=== PATIENT | male | born 1955 | race Caucasian/White ===

== ENCOUNTER 2021-01-02 14:26 | Inpatient (IN) | payer OTHER ==
--- NOTE | 2021-01-02 15:04 | RAD REPORT ---
EXAM DESCRIPTION: RAD - Chest Single View - 01/02/2021 2:55 pm CLINICAL HISTORY: DYSPNEA Chest pain. COMPARISON: No comparisons FINDINGS: Portable technique limits examination quality. Mild reticular opacities in the medial right lung base raise suspicion for possible developing pneumo levar. The lungs are otherwise grossly clear. The heart is normal in size. Right-sided PICC line has ti p in the SVC.
[2021-01-02 15:08] LABS: Absolute Lymphocytes (CBC) 0.9 K/uL (0.7-4.9); Basophils % 0.3 % (0-1.3); Lymphocytes % 3.7 % (15.3-44.8); MPV 10.6 fL (7.6-11.3); RBC Red Blood Cell Count 3.91 M/uL (4.33-5.43)
[2021-01-02 15:15] LABS: Protime INR 1.13
[2021-01-02] MEDS ORDERED: NA CHLORIDE 0.9% 2,000 ML ONE (15:26)
[2021-01-02] MEDS ORDERED: CEFEPIME/SWI 1gm 10 ML ONE (15:27)
[2021-01-02 15:38] LABS: Albumin 2.4 g/dL (3.4-5.0); Bilirubin Direct 0.1 mg/dL (0-0.2); Bilirubin Total 0.4 mg/dL (0.2-1.0); Potassium 3.9 mmol/L (3.5-5.1); Protein, Total 7.5 g/dL (6.4-8.2); Troponin (Emerg Dept Use Only) 0.04 ng/mL (0.0-0.045)
[2021-01-02 15:41] LABS: Blood Morphology Comment NOT SEEN (NOT SEEN); Platelet Estimate ADEQ
[2021-01-02] MEDS ORDERED: VANCOMYCIN/NS 1 gm 1 GM/250 ML BAG IVPB ONE (16:00)
[2021-01-02] MEDS ORDERED: NACHLORIDE 0.45% 1,000 ML IV ONE ×2 (16:00→17:24)
[2021-01-02 17:41] LABS: Urine Amorphous Sediment 3+ /HPF (NONE SEEN); Urine Bacteria <20 /HPF (NONE SEEN); Urine Mucus 1+ /HPF (NONE SEEN); Urine RBC <5 /HPF (NONE SEEN)
[2021-01-02 17:42] LABS: Urine Blood NEGATIVE (NEG); Urine Glucose NEGATIVE (NEG); Urine Protein NEGATIVE (NEG)
--- NOTE | 2021-01-02 18:21 | ER ---
Nurse's Notes [facility] Name: Drake Friend Age: 65 yrs Sex: Male : 1955 Arrival Date: 01/02/2021 Time: 14:33 Bed 2 Private MD: Diagnosis: Severe sepsis without septic shock;Pneumonia due to other specified infectious organisms Presentation: 01/02 14:40 Chief complaint: EMS states: were toned out for possible aspiration pneumonia, pt has iw been at [facility] for 5 days for IV abx ertapenem for pneumonia. pt has hx of CVA with aphasia and dysphagia, NH was attempting to feed pt and believes he aspirated. 14:46 Coronavirus screen: difficulty breathing, Client presents with at least one sign or iw symptom that may indicate coronavirus-19. Ebola Screen: Patient negative for fever greater than or equal to 101.5 degrees Fahrenheit, and additional compatible Ebola Virus Disease symptoms Patient denies exposure to infectious person. Patient denies travel to an Ebola-affected area in the 21 days before illness onset. No symptoms or risks identified at this time. Risk Assessment: Do you want to hurt yourself or someone else? Patient reports no desire to harm self or others. 14:46 Acuity: STU 1 iw 14:46 Method Of Arrival: EMS: [facility] iw 14:47 Initial Sepsis Screen: Does the patient meet any 2 criteria? RR > 20 per min. HR > 90 iw bpm. Does the patient have a suspected source of infection? Yes: Productive cough/pneumonia. Onset of symptoms was January 03, 2021. 14:48 Onset of symptoms. iw Triage Assessment: 14:40 Respiratory: Reports shortness of breath Onset: The symptoms/episode began/occurred iw today, the patient has moderate shortness of breath. Historical: - Allergies: 14:38 No Known Allergies; iw - Home Meds: 17:39 carvedilol 12.5 mg oral tab 1 tab every 12 hours [Active]; hydralazine 100 mg Oral tab iw 1 tab 3 times per day [Active]; losartan 100 mg oral tab 1 tab once daily [Active]; Nifedipine ER Oral 60 mg daily [Active]; Plavix 75 mg Oral tab 1 tab once daily [Active]; Remeron 45 mg Oral tab 1 tab once daily [Active]; Risperdal 2 mg Oral tab 1 tab 2 times per day [Active]; terazosin 2 mg oral cap 1 cap once daily [Active]; thiamine HCl (vitamin B1) 100 mg Oral tab daily [Active]; Vitamin B-12 1,000 mcg oral tab daily [Active]; zinc sulfate 220 (50) mg Oral cap daily [Active]; senna 8.6 mg oral tab 2 tabs once daily [Active]; cholecalciferol (vitamin D3) 5,000 unit oral cap daily [Active]; folic acid 1 mg Oral tab 1 tab once daily [Active]; - PMHx: 17:39 CVA; Pneumonia; iw - Immunization history:: Adult Immunizations up to date. - Social history:: Smoking status: Patient denies any tobacco usage or history of. Screenin:39 Abuse screen: Denies threats or abuse. Denies injuries from another. Nutritional iw screening: No deficits noted. Tuberculosis screening: No symptoms or risk factors identified. Fall Risk IV access (20 points). Assessment: 14:50 General: Appears uncomfortable, ill, Behavior is calm. Neuro: Level of Consciousness is iw awake, confused, Oriented to person. Cardiovascular: Rhythm is sinus tachycardia. Respiratory: Breath sounds are coarse bilaterally. GI: Abdomen is flat, non-distended. Derm: Skin is intact, is fragile, Skin is normal. Musculoskeletal: Range of motion: limited in left hip, left knee, right hip and right knee. 17:29 Reassessment: pt appears more alert, pt pulling off NRB mask, placed on 4 L NC, pt iw oriented X 3. 19:05 General: Appears in no apparent distress. comfortable, Behavior is calm, cooperative, jb4 appropriate for age. Pain: Denies pain. Neuro: Level of Consciousness is awake, alert, obeys commands, Oriented to person, place. Cardiovascular: Patient's skin is warm and dry. Respiratory: Airway is patent Respiratory effort is even, unlabored, Respiratory pattern is regular, symmetrical. GI: No signs and/or symptoms were reported involving the gastrointestinal system. : No signs and/or symptoms were reported regarding the genitourinary system. EENT: No signs and/or symptoms were reported regarding the EENT system. Derm: Skin is intact, Skin is pink, warm \T\ dry. Musculoskeletal: Circulation, motion, and sensation intact. 20:00 Reassessment: Patient appears in no apparent distress at this time. No changes from jb4 previously documented assessment. Patient and/or family updated on plan of care and expected duration. Pain level reassessed. PT admitted to ER hold. 22:20 Reassessment: a BMP has been drawn and sent to lab as ordered by Rubio JUNIOR prior to sg transport to room on second floor at this time. Vital Signs: 14:36 BP 66 / 47; Pulse 83; Resp 23 S; Temp 97.3(TE); Pulse Ox 80% on Non-rebreather mask; iw Weight 77.11 kg; 14:47 BP 75 / 61; Pulse 61; Resp 22 S; Pulse Ox 87% on Non-rebreather mask; iw 15:22 BP 71 / 54; Pulse 54; Resp 22; sv 15:58 BP 95 / 60; Pulse 61; Resp 20 S; Pulse Ox 95% on Non-rebreather mask; iw 19:00 BP 103 / 63; Pulse 64; Resp 18; Pulse Ox 91% on R/A; jb4 20:00 BP 102 / 73; Pulse 64; Resp 17; Pulse Ox 90% on R/A; jb4 ED Course: 14:33 Patient arrived in ED. sv 14:34 Osvaldo Mendez PA is PHCP. jr8 14:34 Chucho Ross MD is Attending Physician. jr8 14:46 Triage completed. iw 14:46 Patient placed. iw 14:55 Chest Single View XRAY In Process Unspecified. EDMS 15:07 Melody Davenport, RN is Primary Nurse. iw 15:20 Accessed PICC line. Clean \T\ dry. Good blood return. Flushes easily. iw 18:20 Merrick Mccarthy DO is Hospitalizing Provider. jr8 18:39 Patient has correct armband on for positive identification. Placed in gown. Bed in low mh5 position. Call light in reach. Side rails up X2. Warm blanket given. heater helper on. Pulse ox on. NIBP on. 18:39 EKG done, by ED staff, reviewed by Osvaldo MIX. mh5 18:40 Initial lab(s) drawn, by ED staff, sent to lab. mh5 19:21 Jovani Hanna MD is Hospitalizing Provider. la1 20:10 No provider procedures requiring assistance completed. Patient admitted, IV remains in jb4 place. Administered Medications: 15:17 Drug: Cefepime 1 grams Route: IVPB; Rate: 200 ml/hr; Infused Over: 30 mins; Site: PICC; iw 15:18 Drug: NS 0.9% (30 ml/kg) 30 ml/kg Route: IV; Rate: bolus; Site: PICC; iw 15:40 Drug: vancoMYCIN 1 grams Route: IVPB; Infused Over: 2 hrs; Site: PICC; iw 17:47 Drug: NS 0.45 % 1000 ml Route: IV; Rate: 100 ml/hr; Site: PICC; iw Outcome: 18:20 Decision to Hospitalize by Provider. jr8 20:10 Admitted to ER Hold. [facility]. jb4 20:10 Condition: stable 20:10 Discharge instructions given to patient, Instructed on the need for admit. 22:22 Patient left the ED. ea Signatures: Dispatcher [employer] EDDariana Shane RN RN Jacob Ramos RN RN sg Williams, Irene, RN RN iw Roszak, Josh, PA PA jr8 Rubio Calderon, TRACTOR EXPERT-C TRACTOR EXPERT-Cla1 Steven Merrill RN RN jb4 Martinez, Maria Rosa Ndiaye RN RN ea Corrections: (The following items were deleted from the chart) 15:18 14:36 BP 66 / 47; Pulse 83bpm; Resp 23bpm; Spontaneous; Pulse Ox 80% Non-rebreather iw mask; Temp 97.3F Temporal; iw
--- NOTE | 2021-01-02 18:21 | EDPHYS ---
Physician Documentation [facility] Name: Drake Friend Age: 65 yrs Sex: Male : 1955 Arrival Date: 01/02/2021 Time: 14:33 Bed 2 Private MD: ED Physician Chucho Ross HPI: 01/02 18:03 This 65 yrs old Male presents to ER via EMS with complaints of Breathing jr8 Difficulty. 18:03 The patient has shortness of breath at rest. Onset: The symptoms/episode began/occurred jr8 gradually. Duration: The symptoms are continuous. Associated signs and symptoms: Pertinent positives: altered mental status. Severity of symptoms: At their worst the symptoms were moderate in the emergency department the symptoms are unchanged. It is unknown whether or not the patient has had similar symptoms in the past. The patient has been recently seen by a physician:. Patient per EMS stated that he was recently treated for pneumonia which started approximately 12 days ago. has been on ertapenem via picc line. Has been at [facility] for past 5 days. History of CVA with aphasia with dysphagia on modified diet. Normally A\T\O x1 but stated that within past day has become more altered and having increased shortness of breath. Concerned that he may have aspirated . Historical: - Allergies: 14:38 No Known Allergies; iw - Home Meds: 17:39 carvedilol 12.5 mg oral tab 1 tab every 12 hours [Active]; hydralazine 100 mg Oral tab iw 1 tab 3 times per day [Active]; losartan 100 mg oral tab 1 tab once daily [Active]; Nifedipine ER Oral 60 mg daily [Active]; Plavix 75 mg Oral tab 1 tab once daily [Active]; Remeron 45 mg Oral tab 1 tab once daily [Active]; Risperdal 2 mg Oral tab 1 tab 2 times per day [Active]; terazosin 2 mg oral cap 1 cap once daily [Active]; thiamine HCl (vitamin B1) 100 mg Oral tab daily [Active]; Vitamin B-12 1,000 mcg oral tab daily [Active]; zinc sulfate 220 (50) mg Oral cap daily [Active]; senna 8.6 mg oral tab 2 tabs once daily [Active]; cholecalciferol (vitamin D3) 5,000 unit oral cap daily [Active]; folic acid 1 mg Oral tab 1 tab once daily [Active]; - PMHx: 17:39 CVA; Pneumonia; iw - Immunization history:: Adult Immunizations up to date. - Social history:: Smoking status: Patient denies any tobacco usage or history of. ROS: 18:03 Unable to obtain ROS due to altered mental status. jr8 Exam: 18:17 Eyes: Pupils equal round and reactive to light, extra-ocular motions intact. Lids and jr8 lashes normal. Conjunctiva and sclera are non-icteric and not injected. Cornea within normal limits. Periorbital areas with no swelling, redness, or edema. ENT: Nares patent. No nasal discharge, no septal abnormalities noted. Oropharynx with no redness, swelling, or masses, exudates, or evidence of obstruction, uvula midline. Mucous membranes moist. Neck: Trachea midline, no thyromegaly or masses palpated, and no cervical lymphadenopathy. Cardiovascular: Regular rate and rhythm with a normal S1 and S2. No gallops, murmurs, or rubs. Normal PMI, no JVD. No pulse deficits. 18:17 Abdomen/GI: Soft, non-tender, with normal bowel sounds. No distension or tympany. Skin: Warm, dry with normal turgor. Normal color with no rashes, no lesions, and no evidence of cellulitis. MS/ Extremity: Pulses equal, no cyanosis. Contracted on right side from previous CVA 18:17 Respiratory: mild respiratory distress is noted, Respirations: tachypnea, Breath sounds: rales, that are mild, are heard in the left posterior upper lobe. 18:17 Neuro: Orientation: to person, Mentation: slow to respond, unable to follow commands, Memory: unable to test, Cranial nerves: extraocular movements are intact, Speech is slowed, Motor: the patient is contracted, Sensation: no obvious gross deficits, seizure activity, is not displayed by the patient, Abnormal movements: there are no abnormal movements. Vital Signs: 14:36 BP 66 / 47; Pulse 83; Resp 23 S; Temp 97.3(TE); Pulse Ox 80% on Non-rebreather mask; iw Weight 77.11 kg; 14:47 BP 75 / 61; Pulse 61; Resp 22 S; Pulse Ox 87% on Non-rebreather mask; iw 15:22 BP 71 / 54; Pulse 54; Resp 22; sv 15:58 BP 95 / 60; Pulse 61; Resp 20 S; Pulse Ox 95% on Non-rebreather mask; iw 19:00 BP 103 / 63; Pulse 64; Resp 18; Pulse Ox 91% on R/A; jb4 20:00 BP 102 / 73; Pulse 64; Resp 17; Pulse Ox 90% on R/A; jb4 MDM: 14:34 Patient medically screened. [facility] 18:03 Data reviewed: vital signs, nurses notes, lab test result(s), EKG, radiologic studies, [facility] plain films. Data interpreted: Pulse oximetry: on room air is 80 %. Interpretation: hypoxia. Counseling: I had a detailed discussion with the patient and/or guardian regarding: the historical points, exam findings, and any diagnostic results supporting the discharge/admit diagnosis, lab results, radiology results, the need for further work-up and treatment in the hospital. 01/02 14:35 Order name: Basic Metabolic Panel [facility] 01/02 14:35 Order name: Blood Culture Adult (2) [facility] 01/02 14:35 Order name: CBC with Diff [facility] 01/02 14:35 Order name: CPK [facility] 01/02 14:35 Order name: Lactate [facility] 01/02 14:35 Order name: LFT's [facility] 01/02 14:35 Order name: Procalcitonin; Complete Time: 16:19 [facility] 01/02 14:35 Order name: Protime (+inr); Complete Time: 16:19 [facility] 01/02 14:35 Order name: Ptt, Activated; Complete Time: 16:19 [facility] 01/02 14:35 Order name: Troponin (emerg Dept Use Only); Complete Time: 16:19 [facility] 01/02 14:35 Order name: Urine Microscopic Only; Complete Time: 17:46 [facility] 01/02 14:36 Order name: Basic Metabolic Panel; Complete Time: 16:19 [facility] 01/02 14:36 Order name: Blood Culture [facility] 01/02 14:35 Order name: Chest Single View XRAY; Complete Time: 15:24 [facility] 01/02 14:36 Order name: BIPAP [facility] 01/02 14:36 Order name: CBC with Automated Diff; Complete Time: 16:19 [facility] 01/02 14:36 Order name: Creatine Phosphokinase; Complete Time: 16:19 ED[facility] 01/02 14:36 Order name: Lactate; Complete Time: 16:19 ED[facility] 01/02 14:36 Order name: Liver (Hepatic) Function; Complete Time: 16:19 EDMS 01/02 15:29 Order name: Glucose, Ancillary Testing [facility] 01/02 15:40 Order name: Manual Differential; Complete Time: 16:19 ED[facility] 01/02 16:31 Order name: SARS-COV-2 RT PCR; Complete Time: 16:42 EDMS 01/02 17:15 Order name: Urine Dipstick--Ancillary (enter results); Complete Time: 17:46 bd 01/02 22:16 Order name: BMP la1 01/02 14:35 Order name: Accucheck; Complete Time: 15:24 8 01/02 14:35 Order name: Cardiac monitoring; Complete Time: 15:24 8 01/02 14:35 Order name: EKG - Nurse/Tech; Complete Time: 18:38 [facility] 01/02 14:35 Order name: IV Saline Lock - Large Bore; Complete Time: 15:24 8 01/02 14:35 Order name: Labs collected and sent; Complete Time: 15:24 8 01/02 14:35 Order name: O2 Per Protocol; Complete Time: 15:24 8 01/02 14:35 Order name: O2 Sat Monitoring; Complete Time: 19:11 8 01/02 14:35 Order name: Urine Dipstick-Ancillary (obtain specimen); Complete Time: 19:11 Administered Medications: 15:17 Drug: Cefepime 1 grams Route: IVPB; Rate: 200 ml/hr; Infused Over: 30 mins; Site: PICC; iw 15:18 Drug: NS 0.9% (30 ml/kg) 30 ml/kg Route: IV; Rate: bolus; Site: PICC; iw 15:40 Drug: vancoMYCIN 1 grams Route: IVPB; Infused Over: 2 hrs; Site: PICC; iw 17:47 Drug: NS 0.45 % 1000 ml Route: IV; Rate: 100 ml/hr; Site: PICC; iw Disposition: 01/02/21 18:20 Hospitalization ordered by Jovani Hanna for Inpatient Admission. Preliminary diagnosis are Severe sepsis without septic shock, Pneumonia due to other specified infectious organisms. - Bed requested for Telemetry/MedSurg (Inpatient). - Status is Inpatient Admission. ea - Condition is Fair. - Problem is new. - Symptoms have improved. Addendum: 01/06/2021 19:28 Co-signature as Attending Physician, Chucho Ross MD I agree with the assessment and t w4 plan of care. Signatures: Dispatcher [employer] EDWV Candy Roberts, RN Kristin Mullen, RN Melody Henderson RN Osvaldo Casiano PA PA jr8 Attema, Rubio, TEXT TRANSCRIBER-C TEXT TRANSCRIBER-Cla1 Rosa Neri RN RN ea Wadley, Terrence, MD MD tw4 Corrections: (The following items were deleted from the chart) 01/02 15:10 14:39 CORONAVIRUS+.PERIZ ordered. [facility] 19:07 18:20 Hospitalization Ordered by Merrick Mccarthy DO for Inpatient Admission. Preliminary diagnosis is Severe sepsis without septic shock; Pneumonia due to other specified infectious organisms. Bed requested for Intensive Care Unit. Status is Inpatient Admission. Condition is Fair. Problem is new. Symptoms have improved. jr8 19:21 19:07 01/02/2021 18:20 Hospitalization Ordered by Merrick Mccarthy DO for Inpatient la1 Admission. Preliminary diagnosis is Severe sepsis without septic shock; Pneumonia due to other specified infectious organisms. Bed requested for [facility] ER HOLD. Status is Inpatient Admission. Condition is Fair. Problem is new. Symptoms have improved. 21:31 19:21 01/02/2021 18:20 Hospitalization Ordered by Jovani Hanna MD for Inpatient mw Admission. Preliminary diagnosis is Severe sepsis without septic shock; Pneumonia due to other specified infectious organisms. Bed requested for [facility] ER HOLD. Status is Inpatient Admission. Condition is Fair. Problem is new. Symptoms have improved. la1 22:22 21:31 01/02/2021 18:20 Hospitalization Ordered by Jovani Hanna MD for Inpatient ea Admission. Preliminary diagnosis is Severe sepsis without septic shock; Pneumonia due to other specified infectious organisms. Bed requested for Telemetry/MedSurg (Inpatient). Status is Inpatient Admission. Condition is Fair. Problem is new. Symptoms have improved. mw
[2021-01-02] MEDS ORDERED: NACHLORIDE 0.45% 1,000 ML IV SCH (21:12)
[2021-01-02] MEDS ORDERED: ONDANSETRON 4 MG/2 ML VIAL IV PRN (21:12)
[2021-01-02] MEDS: HEPARIN 5000 UNIT/ML 1 ML VIAL SQ SCH (21:12)
[2021-01-02] MEDS ORDERED: HEPARIN 5000 UNIT/ML 1 ML VIAL ONE (21:42)
[2021-01-02] MEDS ORDERED: VANCOMYCIN 500 MG in NA CHLORIDE 0.9% 100 ML IVPB ONE (21:45)
--- NOTE | 2021-01-02 22:20 | P.HP ---
Certification for Inpatient Patient admitted to: Inpatient With expected LOS: >2 Midnights Patient will require the following post-hospital care: None Practitioner: I am a practitioner with admitting privileges, knowledge of patient current condition, hospital course, and medical plan of care. Services: Services provided to patient in accordance with Admission requirements found in Title 42 Section 412.3 of the Code of Federal Regulations <Rubio Calderon - Last Filed: 01/02/21 22:09> Patient History Date of Service: 01/02/21 Reason for admission: Severe sepsis History of Present Illness: 65-year-old male with history of CVA, dysphagia, CAD, hypertension presents emergency department for shortness of breath. Patient currently staying at [facility] and is on her ertapenum for pneumonia. senior care staff was feeding patient today when he appeared to aspirate on some of the food and became short of breath. Patient was evaluated in the emergency department labs soon for white blood cell count 23.5 sodium 160 to chloride 129, creatinine 3.77 GFR 16 pro calcitonin 0.3 lactic acid 1.4. Chest x-ray remarkable for mild reticular opacities medial right lung base suspicious for developing pneumonia. Family reports patient had stroke approximately 2 months prior and had been doing well up until approximately 1 week ago when he began having more slurred speech and was diagnosed with pneumonia that required IV antibiotics, since then patient has been declining while in [facility]. Patient with severe sepsis at this time will trend lactate, admit for further evaluation and management. Discussed with sister and other family, wish for full code at this time. Patient is awake, lethargic speech extremely slurred appears to be oriented times 1-2. - Past Medical/Surgical History -: CVA with resulting dysphagia -: Hypertension Past Surgical History: Unable to obtain Psychosocial/ Personal History: Patient currently resides in [facility], prior lived with sister. - Family History Family History: Reviewed- Non-Contributory - Social History Smoking Status: Unknown if ever smoked Place of Residence: [facility] <Rubio Calderon - Last Filed: 01/02/21 22:09> Date of Service: 01/14/21 <Jovani Hanna - Last Filed: 01/14/21 14:54> Allergies No Known Allergies Allergy (Verified 01/03/21 00:05) Review of Systems is unable to be obtained <Rubio Calderon - Last Filed: 01/02/21 22:09> Physical Examination - Physical Exam General: Alert, Oriented x1, Other (Lethargic) HEENT: Other (Mucous membranes dry) Neck: Supple Respiratory: Diminished (Bilaterally), Crackles/rales (Right lower lobe) Cardiovascular: Regular rate/rhythm, Normal S1 S2, No murmurs Capillary refill: <2 Seconds Gastrointestinal: Normal bowel sounds, No tenderness, No masses, No rebound Musculoskeletal: No contractures, No erythema, No tenderness Integumentary: No tenderness/swelling, No erythema, No warmth Neurological: Abnormal speech (Speech slurred), Abnormal tone - Studies Laboratory Data (last 24 hrs) 01/02/21 14:56: PT 13.0 H, INR 1.13, APTT 30.0 01/02/21 14:56: WBC 23.50 H*, Hgb 11.3 L, Hct 35.0 L, Plt Count 336 01/02/21 14:56: Sodium 162 H*, Potassium 3.9, BUN 97 H, Creatinine 3.77 H, Glucose 181 H, Total Bilirubin 0.4, AST 35, ALT 17, Alkaline Phosphatase 79 <Rubio Calderon - Last Filed: 01/02/21 22:09> Assessment and Plan - Plan Assessment Severe sepsis secondary to suspected aspiration pneumonia-on irtapenum at [facility] Acute renal failure Hypernatremia, hyperchloremia Dysphagia secondary to previous stroke Hypertension Plan Severe sepsis secondary to suspected aspiration pneumonia-on irtapenum at [facility]: Blood cultures obtained in the ER, trend lactate levels, patient was hypotensive in the ER but blood pressure improved after sepsis fluid bolus, patient not requiring vasopressor therapy at this time. Will need to follow blood cultures, continue broad-spectrum antibiotics. Patient previously on her irtapenum for pneumonia at al[facility], Infectious Disease consult in place. Continue with meropenem, vancomycin at this time. DVT prophylaxis Lovenox 40 mg subcutaneous once daily. Acute renal failure: Nephrology consult in place, patient likely dehydrated, renal ultrasound in the morning, elevated CPK level. Will obtain uric acid. Hypernatremia, hyperchloremia: Patient received 30 cc/kg normal saline in the emergency department, pending repeat chemistry at this time. May need to adjust maintenance fluids according to lab. Nephrology consult in place. Dysphagia secondary to previous stroke: Speech therapy consult in place, patient will need swallow study, may need PEG tube. NPO at this time. Hypertension: Continue p.r.n. blood pressure medications at this time, nothing by mouth. Discharge Plan: [facility] Plan to discharge in: Greater than 2 days - Advance Directives Does patient have a Living Will: No Does patient have a Durable POA for Healthcare: No - Code Status/Comfort Care Code Status Assessed: Yes (Full code) Critical Care: No Time Spent Managing Pts Care (In Minutes): 55 <Rubio Calderon - Last Filed: 01/02/21 22:09> - Plan Plan of care reviewed and agree as noted above by Rubio Calderon. Please see my note on 01/03 for further information. <Jovani Hanna - Last Filed: 01/14/21 14:54>
[2021-01-02] MEDS ORDERED: VANCOMYCIN 1 GM/VIAL ONE (22:36)
[2021-01-02 23:10] VITALS: BMI 21.4
[2021-01-02] MEDS ORDERED: NA CHLORIDE 0.9% 100 ML ONE (23:22)
[2021-01-03] MEDS ORDERED: Meropenem 1000 MG/VIAL IV SCH (01:00)
[2021-01-03] MEDS ORDERED: Meropenem 1 GM/100 ML BAG ONE (01:00)
[2021-01-03] MEDS ORDERED: Meropenem 1,000 MG in NA CHLORIDE 0.9% 100 ML IV SCH ×4 (01:00)
[2021-01-03] MEDS ORDERED: NACHLORIDE 0.45% 1,000 ML IV SCH (01:50)
--- NOTE | 2021-01-03 01:53 | P.INFCA ---
Sepsis Focused Assessment - Focused Assessment Complete? Sepsis Focused Assessment Completed?: Yes - Sepsis Screen Result Severe Sepsis: Positive Septic Shock: Negative - Evaluation Current stage of sepsis: Severe sepsis - Vital Signs Reviewed: Yes Temperature: 97.8 F Heart rate: 67 Blood Pressure: 109/69 Respiratory Rate: 16 O2 Sat by Pulse Oximetry: 95 - Examination Date exam was performed: 01/03/21 Time exam was performed: 01:52 Heart: Regular rate/rhythm Lungs: Diminished air movement Peripheral pulses: 2+ Slightly diminished Peripheral pulse location: Radial Capillary refill: <2 Seconds Skin examination: Normal turgor
[2021-01-03] MEDS ORDERED: D5W 1,000 ML IV SCH (02:00)
[2021-01-03 05:50] LABS: Absolute Lymphocytes (CBC) 0.5 K/uL (0.7-4.9); Hematocrit 31.2 % (39.6-49.0); Lymphocytes % 2.3 % (15.3-44.8); MPV 10.5 fL (7.6-11.3); RBC Red Blood Cell Count 3.46 M/uL (4.33-5.43)
[2021-01-03 06:04] LABS: Albumin 2.1 g/dL (3.4-5.0); Bilirubin Total 0.3 mg/dL (0.2-1.0); Magnesium 2.5 mg/dL (1.8-2.4); Potassium 3.9 mmol/L (3.5-5.1); Protein, Total 6.8 g/dL (6.4-8.2); Uric Acid 11.7 mg/dL (3.5-7.2)
[2021-01-03 06:29] LABS: Blood Morphology Comment NOT SEEN (NOT SEEN); Platelet Estimate ADEQ; White Blood Cell Scan OK (OK)
--- NOTE | 2021-01-03 08:12 | RAD REPORT ---
EXAM DESCRIPTION: CT - Head Brain Wo Cont - 01/03/2021 7:50 am CLINICAL HISTORY: hx cva, worsening dyshagia COMPARISON: Chest Single View dated 01/02/2021 TECHNIQUE: Axial 5 mm thick images of the head were obtained without IV contrast. All CT scans are performed using dose optimization technique as appropriate and may include automated exposure control or mA/KV adjustment according to patient size. FINDINGS: No intracranial hemorrhage, mass, edema or shift of mid-line structures. Approximately 4 c entimeter sized area of the superior left cerebellum shows diminished attenuation suspicious for suba cute infarction. No significant mass effect in this region. A large area of diminished attenuation in the anteromedial left frontal lobe is likely old CVA. Moderate atrophy changes are present greater t sainz typically seen at this age. Ventricles are prominent and may be out of proportion for the amount of volume loss. Patient has advanced for age diminished attenuation throughout the cerebral hemispher es worse in the frontal lobes. This extends into the basal ganglia and thalamus tissues, more so on t he right. Brainstem diminished attenuation present as well. No abnormal extra-axial fluid collections . Arterial and physiologic calcifications are present. Mastoid air cells and visualized portions of the paranasal sinuses are clear. No acute bony findings. IMPRESSION: No intracranial hemorrhage is present. No mass lesion, mass effect or midline shift. Moderately large subacute infarction involving the superior portion left cerebellum. Left frontal and right cerebellum diminished attenuation probably old infarction sites. Advanced for age atrophy and chronic ischemic change. Chronic ischemic change can mask other sites o f nonhemorrhagic CVA. Ventricles appear slightly out of proportion for the amount of volume loss. Correlation can be made w ith any symptoms of normal pressure hydrocephalus.
[2021-01-03] MEDS: HEPARIN 5000 UNIT/ML 1 ML VIAL SQ SCH ×2 (08:29→21:53)
[2021-01-03] MEDS ORDERED: PNEUMOCOCCAL VACCINE 0.5 ML IMVAC ONE (09:00)
[2021-01-03] MEDS ORDERED: INFLUENZA VACCINE (for 3y+) 0.5 ML DOSE IMVAC ONE (09:00)
[2021-01-03] MEDS ORDERED: KCL 20 MEQ/100 mL IVPB 20 MEQ/100 ML BAG IV SCH (09:00)
--- NOTE | 2021-01-03 09:52 | RAD REPORT ---
EXAM DESCRIPTION: US - Renal Ultrasound-Complete - 01/03/2021 8:55 am CLINICAL HISTORY: arf COMPARISON: No comparisonsNone. FINDINGS: The right kidney measures approximately 9 x 4 x 5 cm. The left kidney measures approximat bety 7 x 4 x 5 cm. Renal cortical thickness and echogenicity are normal. No hydronephrosis or suspicio us renal mass. Bladder cannot be adequately visualized. Exam was suboptimal. Patient had limited ability to cooperate with the examination. IMPRESSION: No hydronephrosis or suspicious renal mass. Urinary bladder was not visualized adequately.
[2021-01-03] MEDS: Meropenem 500 MG in NA CHLORIDE 0.9% 100 ML IV SCH ×2 (10:17→21:53)
--- NOTE | 2021-01-03 13:42 | P.CNS ---
Date of Consult: 01/03/21 Reason for Consult: elevated creatinine and sodium Requesting Physician: Rubio Calderon Chief Complaint: Severe sepsis History of Present Illness: 65-year-old male with history of CVA, dysphagia, CAD, HTN, Nurising home resident -admitted for SOB -Noted on imaging with right upper lobe pneumonia -workup shows elevated sodium at 162 with cr up to 3.77 -started on D5W with kcl and creatinine still worsening after intial improvement to 3.5 -+ low BP with systolic down to 60s on adm -No documented contrast exposure -patient is obtunded and unable to give more hx Allergies No Known Allergies Allergy (Verified 01/03/21 00:05) Home medications list reviewed: Yes - Past Medical/Surgical History Diabetic: No -: CVA with resulting dysphagia -: Hypertension Psychosocial/ Personal History: Patient currently resides in prison, prior lived with sister. - Social History Alcohol use: No CD- Drugs: No Caffeine use: No Place of Residence: [facility] Review of Systems is unable to be obtained (cva) Physical Examination Temp Pulse Resp BP Pulse Ox 98.1 F 52 18 140/72 98 01/03/21 12:00 01/03/21 12:00 01/03/21 12:00 01/03/21 12:00 01/03/21 12:00 General: Other (obtunded , on NC 02 , ) HEENT: Atraumatic, Normocephalic Neck: Supple, 2+ carotid pulse no bruit, JVD not distended Respiratory: Diminished, Inspiratory wheezes, Rhonchi/gurgles Cardiovascular: Normal pulses, Regular rate/rhythm, Normal S1 S2 Capillary refill: <2 Seconds Gastrointestinal: Normal bowel sounds, Soft and benign, Non-distended Musculoskeletal: No clubbing, No swelling Integumentary: No rashes, No breakdown Neurological: Dementia Laboratory Data (last 24 hrs) 01/02/21 14:56: PT 13.0 H, INR 1.13, APTT 30.0 01/02/21 14:56: WBC 23.50 H*, Hgb 11.3 L, Hct 35.0 L, Plt Count 336 01/02/21 14:56: Sodium 162 H*, Potassium 3.9, BUN 97 H, Creatinine 3.77 H, Glucose 181 H, Total Bilirubin 0.4, AST 35, ALT 17, Alkaline Phosphatase 79 Conclusions/Impression: ERASMO- likely due to pre-renal with component of Hypotension induced ATN Hypernatremia CVA with Dysphagia HTN Met Encephalopathy Sepsis with RUL Pneumonia PLAN - obtain urine studies for fena -obtain renal sono -consider place hackett for 1/o -continue D5W with kcl -increase rate to 125 -will dose DDAVP -serum sodium trending down to 157, expected meds to target decrease of > 12 meq over next 24 hrs -free water deficit of > 4 L noted -consider place NGT and start free water -renally dose all meds - avoid nsaids
[2021-01-03] MEDS: DESMOPRESSIN 4 MCG/ML AMP SQ SCH (14:18)
[2021-01-03] MEDS: D5W 1,000 ML IV SCH ×2 (14:18→21:48)
[2021-01-03 15:12] LABS: Urine Appearance CLOUDY; Urine Bilirubin NEGATIVE (NEG); Urine Blood TRACE (NEG); Urine Color YELLOW; Urine Glucose NEGATIVE (NEG); Urine Protein TRACE (NEG); Urine Specific Gravity 1.015 (1.005-1.030); Urine Urobilinogen 0.2 mg/dL (0.2-1.0)
[2021-01-03 15:24] LABS: Urine Microscopic Reflex ORDER UMIC
[2021-01-03 15:43] LABS: Urine Amorphous Sediment 2+ /HPF (NONE SEEN); Urine Bacteria <20 /HPF (NONE SEEN); Urine RBC <5 /HPF (NONE SEEN)
--- NOTE | 2021-01-03 16:04 | P.PN ---
Subjective Date of Service: 01/03/21 Chief Complaint: Severe sepsis Subjective: No new changes (no significant events since admission overnight.) Review of Systems 10-point ROS is otherwise unremarkable Physical Examination - Vital Signs Temperature: 98.1 F Blood Pressure: 140/72 Pulse: 52 Respirations: 18 Pulse Ox (%): 98 - Studies Microbiology Data (last 24 hrs): 01/02/21 15:05 Blood - Blood Anaerobic Blood Culture - Final Assessment & Plan Physician Review Additional Text: Physical Exam Gen: Alert, Oriented x1, lethargic, slurring words, difficult to understand HEENT: dry mucous membranes Pulm: diminished bilaterally, crackles at RLL CV: Regular rate/rhythm, Normal S1 S2, No murmurs Abd: Normal bowel sounds, No tenderness, No masses, No rebound Ext: No contractures, No erythema, No tenderness Neurological: slurred speech, difficult to obtain accurate neuro exam at this time Problem List Severe sepsis secondary to suspected aspiration pneumonia-on irtapenum at senior living Acute renal failure Hypernatremia, hyperchloremia Dysphagia secondary to previous stroke Hypertension Severe sepsis secondary to suspected aspiration pneumonia-on ertapenum at senior living: Blood cultures obtained in the ER BP improved after sepsis bolus, pt with significant free water defecit contine meropenem & vanc for now, ID consulted. was on ertapenem at senior living for pneumonia oxygen as needed Acute renal failure: Hypernatremia, hyperchloremia: Nephrology consulted, patient likely dehydrated, renal ultrasound in the morning, elevated CPK level Dysphagia secondary to previous stroke: Speech therapy consult in place, patient will need swallow study, may need PEG tube. NPO at this time. will place dobhoff for meds, feeds if needed CT head shows subacute infarct, difficult to obtain accurate history - spoke with BRANDIE lan - stated has had 7 or so strokes in the past few months reports 1st one was ~2 months ago, and last one was ~2-3 weeks ago. With significant weakness - had to be lifted from car to disability office. Stated he had MRI at [facility], and then our phones stopped working an unable to get a hold of her again. will attempt to obtain medical records from [place] neurology consulted Hypertension: Continue p.r.n. blood pressure medications at this time, nothing by mouth. Dispo: back to senior care once improved Time Spent Managing Pts Care (In Minutes): 35
[2021-01-04] MEDS: D5W 1,000 ML IV SCH ×4 (01:32→20:06)
[2021-01-04 05:53] LABS: Absolute Lymphocytes (CBC) 0.7 K/uL (0.7-4.9); Basophils % 0.1 % (0-1.3); MPV 10.9 fL (7.6-11.3)
[2021-01-04 06:01] LABS: Bilirubin Total 0.2 mg/dL (0.2-1.0); Magnesium 2.5 mg/dL (1.8-2.4); Phosphorus 3.3 mg/dL (2.5-4.9); Potassium 3.6 mmol/L (3.5-5.1); Protein, Total 6.2 g/dL (6.4-8.2)
[2021-01-04] MEDS: VANCOMYCIN/NS 1 gm 1 GM/250 ML BAG IVPB SCH (06:26)
[2021-01-04 06:50] LABS: Lymphocytes % 3.3 % (15.3-44.8); RBC Red Blood Cell Count 3.03 M/uL (4.33-5.43)
--- NOTE | 2021-01-04 07:14 | RAD REPORT ---
EXAM DESCRIPTION: RAD - Chest Single View - 01/03/2021 10:36 pm CLINICAL HISTORY: Device placement Dobhoff tube placement IMPRESSION: The tip of a Dobhoff tube lies within the gastric fundus
[2021-01-04] MEDS ORDERED: KCL 20 MEQ/100 mL IVPB 20 MEQ/100 ML BAG IV SCH (07:30)
[2021-01-04 07:57] LABS: Blood Morphology Comment NOT SEEN (NOT SEEN); Platelet Estimate ADEQ; White Blood Cell Scan OK (OK)
[2021-01-04] MEDS: DESMOPRESSIN 4 MCG/ML AMP SQ SCH (08:06)
[2021-01-04] MEDS: FOLIC ACID 1 MG TABLET PO SCH (08:06)
[2021-01-04] MEDS: CLOPIDOGREL 75 MG TABLET PO SCH (08:07)
[2021-01-04] MEDS: THIAMINE HCL 100 MG TABLET PO SCH (08:07)
[2021-01-04] MEDS: Meropenem 500 MG in NA CHLORIDE 0.9% 100 ML IV SCH ×2 (08:07→21:11)
[2021-01-04] MEDS: HEPARIN 5000 UNIT/ML 1 ML VIAL SQ SCH ×2 (08:07→21:10)
[2021-01-04] MEDS: SENOSIDES 8.6 MG TAB PO SCH (08:07)
--- NOTE | 2021-01-04 16:33 | P.PN ---
Subjective Date of Service: 01/04/21 Chief Complaint: Severe sepsis Subjective: No new changes, Improving (more awake/alert, slurred speech, difficult to understand, without complaints this morning) Review of Systems 10-point ROS is otherwise unremarkable Physical Examination - Vital Signs Temperature: 98.0 F Blood Pressure: 184/95 Pulse: 67 Respirations: 20 Pulse Ox (%): 95 - Studies Microbiology Data (last 24 hrs): 01/02/21 15:05 Blood - Blood Anaerobic Blood Culture - Final Assessment & Plan Physician Review Additional Text: Physical Exam Gen: Alert, Oriented x2, lethargic, slurring words, difficult to understand HEENT: dry mucous membranes Pulm: diminished bilaterally, crackles at RLL CV: Regular rate/rhythm, Normal S1 S2, No murmurs Abd: Normal bowel sounds, No tenderness Ext: no rash/no tenderness Neurological: slurred speech, difficult to obtain accurate neuro exam at this time still Problem List Severe sepsis secondary to suspected aspiration pneumonia-on irtapenum at [facility] Acute renal failure Hypernatremia, hyperchloremia Dysphagia secondary to previous stroke Hypertension Severe sepsis secondary to suspected aspiration pneumonia-on ertapenum at [facility] home: Blood cultures obtained in the ED, gram stain positive, culture no growth so far BP improved after sepsis bolus, pt with significant free water defecit contine meropenem & vanc for now, ID consulted. was on ertapenem at [facility] for pneumonia ID to see patient today oxygen as needed speech therapy consulted - to evaluate patient today as well PT/OT consulted Acute renal failure: Hypernatremia, hyperchloremia: Nephrology consulted, patient likely dehydrated, elevated CPK level, improving free water via dobhoff, on IVF as well Dysphagia secondary to previous stroke: Speech therapy consult in place, patient will need swallow study, may need PEG tube. NPO at this time. dobhoff for meds, feeds if needed CT head shows subacute infarct, difficult to obtain accurate history - spoke with BRANDIE lan - stated has had 7 or so strokes in the past few months reports 1st one was ~2 months ago, and last one was ~2-3 weeks ago. With significant weakness - had to be lifted from car to disability office. Stated he had MRI at [facility] will attempt to obtain medical records from [place] neurology consulted - recommend repeat MRI today as well Hypertension: Continue p.r.n. blood pressure medications at this time, nothing by mouth. Dispo: likely back to half-way once improved, in 48-72hrs Time Spent Managing Pts Care (In Minutes): 35
--- NOTE | 2021-01-04 16:34 | RAD REPORT ---
EXAM DESCRIPTION: MRI - Brain Wo Cont - 01/04/2021 4:04 pm CLINICAL HISTORY: eval stroke, dysphasia COMPARISON: Head Brain Wo Cont dated 01/03/2021 TECHNIQUE: Sagittal T1-weighted images were obtained along with axial PD, heavily T2-weighted and T2 -FLAIR images. Axial DWI and ADC mapping sequences were also obtained along with coronal heavily T2-w eighted images. FINDINGS: No intracranial hemorrhage is present. Diffusion-weighted imaging shows a large area of re stricted diffusion involving the left-side vermis and superior aspect of the left cerebellum. There i s corresponding diminished signal on ADC mapping sequencing. This is the correlate to the CT finding. No other diffusion signal abnormalities. Patient has underlying moderate atrophy with ventricles in proportion. Cerebral white matter chronic ischemic changes are present advanced for age. Ischemic sig nal abnormalities extend into the basal ganglia and thalamus tissues. Old infarction changes are seen in the anterior left frontal lobe and inferior right cerebellum. No significant edema from the cerebellar infarction. No extra-axial fluid collections. Pang-matter/wh ite matter junction is preserved. Signal voids are seen as a normal finding in the major intracranial vessels. No globe or orbital content abnormality. Mastoid air cells and paranasal sinuses are clear. IMPRESSION: Moderate-sized subacute nonhemorrhagic infarction involving the superior left cerebellum and left vermis. Old infarction changes in the anterior left frontal lobe and inferior right cerebellum. Patient has prominent for age atrophy and chronic ischemic change.
--- NOTE | 2021-01-04 16:35 | RAD REPORT ---
EXAM DESCRIPTION: RAD - Abdomen 1 View (KUB) - 01/04/2021 4:18 pm CLINICAL HISTORY: Dobhoff placement verification COMPARISON: No comparisons FINDINGS: Dobhoff feeding tube has been placed. Tip is in the stomach with no abnormal bend or kink of the tubing. Bowel gas pattern is nonspecific. No dilation of the stomach. Moderate stool volume is seen in the co colin. No free air or pneumatosis. No suspicious calcifications. No significant bony findings IMPRESSION: Dobhoff feeding tube has been placed with the tip in the stomach. No abnormal bend or ki nk of the tubing.
--- NOTE | 2021-01-04 18:29 | P.PN ---
Subjective Date of Service: 01/05/21 Chief Complaint: Severe sepsis Subjective: No new changes Physical Examination - Vital Signs Temperature: 98.0 F Blood Pressure: 184/95 Pulse: 67 Respirations: 20 Pulse Ox (%): 95 - Physical Exam General: Alert, Oriented x2 HEENT: Atraumatic, Normocephalic Neck: Supple Respiratory: Clear to auscultation bilaterally Cardiovascular: Normal pulses, Regular rate/rhythm Gastrointestinal: Soft and benign Neurological: Normal speech, Normal strength at 5/5 x4 extr - Studies Microbiology Data (last 24 hrs): 01/02/21 15:05 Blood - Blood Anaerobic Blood Culture - Final Assessment And Plan - Plan ERASMO- likely due to pre-renal with component of Hypotension induced ATN Hypernatremia CVA with Dysphagia HTN Met Encephalopathy Sepsis with RUL Pneumonia Plan: His sodium is better today at 152. he has had a stable creatinine so far. we will continue free water administration and dose meds for eGFR. we will continue to avoid nephrotoxins.
[2021-01-04] MEDS ORDERED: HOME MED 1 EA UNK (Risperidone [Risperdal] 2 MG Tablet) PO SCH (21:00)
[2021-01-04] MEDS: HYDRALAZINE HCL 25 MG TABLET PO SCH (21:10)
[2021-01-04] MEDS: MIRTAZAPINE 15 MG TAB PO SCH (21:11)
[2021-01-04] MEDS: RISPERIDONE 1 MG TABLET PO SCH (21:18)
[2021-01-04] MEDS: ACETAMINOPHEN 325 MG TABLET FT PRN (21:18)
[2021-01-05] MEDS ORDERED: PANTOPRAZOLE 40 MG INJ IVP ONE (02:16)
[2021-01-05] MEDS: SODIUM CHLORIDE 0.9% 10ML INJ IV PRN (02:28)
[2021-01-05] MEDS: PANTOPRAZOLE INJ 80 MG in NA CHLORIDE 0.9% 250 ML IV SCH ×3 (02:38→22:00)
[2021-01-05] MEDS ORDERED: NA CHLORIDE 0.9% 250 ML ONE (02:41)
[2021-01-05 04:57] LABS: Absolute Lymphocytes (CBC) 1.1 K/uL (0.7-4.9); Basophils % 0.2 % (0-1.3); Hematocrit 26.4 % (39.6-49.0); Lymphocytes % 6.7 % (15.3-44.8); MPV 10.3 fL (7.6-11.3); RBC Red Blood Cell Count 3.02 M/uL (4.33-5.43)
[2021-01-05 05:11] LABS: Bilirubin Total 0.4 mg/dL (0.2-1.0); Magnesium 2.5 mg/dL (1.8-2.4); Potassium 3.8 mmol/L (3.5-5.1); Protein, Total 6.1 g/dL (6.4-8.2)
[2021-01-05] MEDS: D5W 1,000 ML IV SCH ×3 (06:00→21:48)
[2021-01-05] MEDS ORDERED: KCL 20 MEQ/100 mL IVPB 20 MEQ/100 ML BAG IV SCH (07:00)
[2021-01-05] MEDS: CLOPIDOGREL 75 MG TABLET PO SCH (09:43)
[2021-01-05] MEDS: FOLIC ACID 1 MG TABLET PO SCH (09:43)
[2021-01-05] MEDS: RISPERIDONE 1 MG TABLET PO SCH ×2 (09:43→21:30)
[2021-01-05] MEDS: SENOSIDES 8.6 MG TAB PO SCH (09:43)
[2021-01-05] MEDS: HYDRALAZINE HCL 25 MG TABLET PO SCH ×3 (09:43→21:30)
[2021-01-05] MEDS: HEPARIN 5000 UNIT/ML 1 ML VIAL SQ SCH ×2 (09:44→21:32)
[2021-01-05] MEDS: DESMOPRESSIN 4 MCG/ML AMP SQ SCH (09:44)
[2021-01-05] MEDS: THIAMINE HCL 100 MG TABLET PO SCH (09:44)
[2021-01-05] MEDS: Meropenem 500 MG in NA CHLORIDE 0.9% 100 ML IV SCH ×2 (09:45→20:49)
--- NOTE | 2021-01-05 15:39 | P.PN ---
Subjective Date of Service: 01/05/21 Chief Complaint: Severe sepsis Subjective: Improving Physical Examination - Vital Signs Temperature: 98.0 F Blood Pressure: 184/95 Pulse: 67 Respirations: 20 Pulse Ox (%): 95 - Physical Exam General: Alert, Oriented x2 HEENT: Atraumatic, Normocephalic, Other (ng tube insitu.) Neck: Supple Respiratory: Clear to auscultation bilaterally Cardiovascular: Regular rate/rhythm, Normal S1 S2 Gastrointestinal: Soft and benign Neurological: Normal speech, Normal strength at 5/5 x4 extr, Cranial nerves 3-12 intact - Studies Microbiology Data (last 24 hrs): 01/02/21 15:05 Blood - Blood Aerobic Blood Culture - Final 01/02/21 15:05 Blood - Blood Blood Culture Gram Stain - Final 01/02/21 15:05 Blood - Blood Anaerobic Blood Culture - Final Assessment And Plan - Plan ERASMO- likely due to pre-renal with component of Hypotension induced ATN Hypernatremia CVA with Dysphagia HTN Met Encephalopathy Sepsis with RUL Pneumonia Plan: His sodium is better today at 148. His creatinine is better today at 2.85. we will continue free water administration and dose meds for eGFR. we will continue to avoid nephrotoxins. Physician Review Additional Text: Physical Exam Gen: Alert, Oriented x2, lethargic, slurring words, difficult to understand HEENT: dry mucous membranes Pulm: diminished bilaterally, crackles at RLL CV: Regular rate/rhythm, Normal S1 S2, No murmurs Abd: Normal bowel sounds, No tenderness Ext: no rash/no tenderness Neurological: slurred speech, difficult to obtain accurate neuro exam at this time still Problem List Severe sepsis secondary to suspected aspiration pneumonia-on irtapenum at residential Acute renal failure Hypernatremia, hyperchloremia Dysphagia secondary to previous stroke Hypertension Severe sepsis secondary to suspected aspiration pneumonia-on ertapenum at residential: Blood cultures obtained in the ED, gram stain positive, culture no growth so far BP improved after sepsis bolus, pt with significant free water defecit contine meropenem & vanc for now, ID consulted. was on ertapenem at residential for pneumonia ID to see patient today oxygen as needed speech therapy consulted - to evaluate patient today as well PT/OT consulted Acute renal failure: Hypernatremia, hyperchloremia: Nephrology consulted, patient likely dehydrated, elevated CPK level, improving free water via dobhoff, on IVF as well Dysphagia secondary to previous stroke: Speech therapy consult in place, patient will need swallow study, may need PEG tube. NPO at this time. dobhoff for meds, feeds if needed CT head shows subacute infarct, difficult to obtain accurate history - spoke with BRANDIE lan - stated has had 7 or so strokes in the past few months reports 1st one was ~2 months ago, and last one was ~2-3 weeks ago. With significant weakness - had to be lifted from car to disability office. Stated he had MRI at [facility] will attempt to obtain medical records from [place] neurology consulted - recommend repeat MRI today as well Hypertension: Continue p.r.n. blood pressure medications at this time, nothing by mouth. Dispo: likely back to longterm once improved, in 48-72hrs
[2021-01-05] MEDS: VANCOMYCIN/NS 1 gm 1 GM/250 ML BAG IVPB SCH (18:05)
[2021-01-05 19:24] LABS: Absolute Lymphocytes (CBC) 1.1 K/uL (0.7-4.9); Basophils % 0.2 % (0-1.3); Hematocrit 25.2 % (39.6-49.0); Lymphocytes % 7.1 % (15.3-44.8); RBC Red Blood Cell Count 2.89 M/uL (4.33-5.43)
--- NOTE | 2021-01-05 19:36 | P.PN ---
Subjective Date of Service: 01/05/21 Chief Complaint: Severe sepsis Subjective: Other (improving, feeling better, without complaints. overnight noted to have some coffee ground via NGT, started on protonix drip) Review of Systems 10-point ROS is otherwise unremarkable Physical Examination - Vital Signs Temperature: 98.0 F Blood Pressure: 184/95 Pulse: 67 Respirations: 20 Pulse Ox (%): 95 - Studies Microbiology Data (last 24 hrs): 01/02/21 15:05 Blood - Blood Aerobic Blood Culture - Final 01/02/21 15:05 Blood - Blood Blood Culture Gram Stain - Final 01/02/21 15:05 Blood - Blood Anaerobic Blood Culture - Final Assessment & Plan Physician Review Additional Text: Physical Exam Gen: Alert, Oriented x3, slurring words, difficult to understand but improved HEENT: dry mucous membranes Pulm: diminished bilaterally, crackles at RLL CV: Regular rate/rhythm, Normal S1 S2 Abd: Normal bowel sounds, No tenderness Ext: no rash/no tenderness Neurological: slurred speech, b/l lower extremity contractures Problem List Severe sepsis [facility] to [facility] Acute renal failure Hypernatremia, hyperchloremia Dysphagia secondary to previous stroke Hypertension Severe sepsis secondary to suspected [facility]enum [facility]: Blood cultures obtained in the ED, gram stain positive, Cx: CONS in one; likely contaminant contine meropenem & vanc for now, ID consulted. [facility] oxygen as needed speech therapy consulted - recommended NPO pt does seem more alert / more strength today, ST to continue assessing patient, will discuss with family regarding potential PEG placement PT/OT consulted Acute renal failure: Hypernatremia, hyperchloremia: Nephrology consulted, patient likely dehydrated, elevated CPK level, improving free water via dobhoff, on IVF as well Dysphagia secondary to previous stroke: Speech therapy consulted, NPO for now, may need PEG dobhoff for meds / feeds CT head shows subacute infarct, difficult to obtain accurate history - spoke with BRANDIE lan - stated has had 7 or so strokes in the past few months reports 1st one was ~2 months ago, and last one was ~2-3 weeks ago. With significant weakness - had to be lifted from car to disability office. Stated he had MRI at [facility] awaiting MRI records from [place] neurology consulted - recommend repeat MRI - confirmed subacute stroke Hypertension: Continue p.r.n. blood pressure medications at this time, nothing by mouth. Dispo: likely back to shelter once improved, in 48-72hrs re-eval by speech therapy, possible PEG placement will discuss with patient and family regarding potential need for PEG Time Spent Managing Pts Care (In Minutes): 45
[2021-01-05] MEDS: MIRTAZAPINE 15 MG TAB PO SCH (21:29)
[2021-01-05] MEDS: carvediloL 12.5 MG TAB PO SCH (21:30)
[2021-01-05] MEDS: TERAZOSIN HCL 1 MG CAP PO SCH (21:32)
[2021-01-06] MEDS: ACETAMINOPHEN 325 MG TABLET FT PRN (03:27)
[2021-01-06] MEDS: D5W 1,000 ML IV SCH ×4 (03:39→21:42)
[2021-01-06 05:04] LABS: Hematocrit 24.4 % (39.6-49.0)
[2021-01-06 05:05] LABS: Absolute Lymphocytes (CBC) 0.7 K/uL (0.7-4.9); Basophils % 0.2 % (0-1.3); MPV 10.8 fL (7.6-11.3)
[2021-01-06 05:29] LABS: Albumin 1.7 g/dL (3.4-5.0); Bilirubin Total 0.4 mg/dL (0.2-1.0); Potassium 3.7 mmol/L (3.5-5.1); Protein, Total 5.3 g/dL (6.4-8.2)
[2021-01-06 07:44] LABS: Blood Morphology Comment NOT SEEN (NOT SEEN); Platelet Estimate ADEQ; White Blood Cell Scan OK (OK)
[2021-01-06] MEDS: THIAMINE HCL 100 MG TABLET PO SCH (09:00)
[2021-01-06] MEDS: SENOSIDES 8.6 MG TAB PO SCH (09:00)
[2021-01-06] MEDS: HYDRALAZINE HCL 25 MG TABLET PO SCH ×3 (09:00→21:33)
[2021-01-06] MEDS ORDERED: KCL 20 MEQ/100 mL IVPB 20 MEQ/100 ML BAG IV SCH (09:00)
[2021-01-06] MEDS: PANTOPRAZOLE INJ 80 MG in NA CHLORIDE 0.9% 250 ML IV SCH ×3 (09:00→21:43)
[2021-01-06] MEDS: Meropenem 500 MG in NA CHLORIDE 0.9% 100 ML IV SCH ×2 (09:00→21:33)
[2021-01-06] MEDS: DESMOPRESSIN 4 MCG/ML AMP SQ SCH (09:00)
[2021-01-06] MEDS: RISPERIDONE 1 MG TABLET PO SCH ×2 (09:00→21:31)
[2021-01-06] MEDS: carvediloL 12.5 MG TAB PO SCH ×2 (09:00→21:30)
[2021-01-06] MEDS: FOLIC ACID 1 MG TABLET PO SCH (09:00)
[2021-01-06 09:58] LABS: RBC Red Blood Cell Count 3.15 M/uL (4.33-5.43)
[2021-01-06 11:04] LABS: Ferritin 952.9 ng/mL (26-388)
--- NOTE | 2021-01-06 11:24 | RAD REPORT ---
EXAM DESCRIPTION: RAD - Abdomen 1 View (KUB) - 01/06/2021 11:05 am CLINICAL HISTORY: CHECK PLACEMENT OF DBHFT Pain COMPARISON: Abdomen 1 View (KUB) dated 01/04/2021 FINDINGS: The tip of the enteric tube is in the stomach.
[2021-01-06 12:22] LABS: Hematocrit 25.9 % (39.6-49.0)
--- NOTE | 2021-01-06 16:26 | P.PN ---
Subjective Date of Service: 01/06/21 Chief Complaint: Severe sepsis Subjective: No new changes, Improving Physical Examination - Vital Signs Temperature: 99.1 F Blood Pressure: 172/71 Pulse: 64 Respirations: 18 Pulse Ox (%): 97 - Physical Exam General: Alert, In no apparent distress, Oriented x3 HEENT: Atraumatic, Normocephalic Neck: Supple Respiratory: Clear to auscultation bilaterally, Normal air movement Cardiovascular: No edema Gastrointestinal: Soft and benign Neurological: Normal strength at 5/5 x4 extr, Cranial nerves 3-12 intact Assessment And Plan - Plan ERASMO- likely due to pre-renal with component of Hypotension induced ATN Hypernatremia-resolved. CVA with Dysphagia HTN Met Encephalopathy Sepsis with RUL Pneumonia Plan: His sodium is better today at 143. His creatinine is better today at 2.45. His BUN is grjrcw2mh down nicely at 60 today. we will continue free water administration and dose meds for eGFR. we will continue to avoid nephrotoxins. Physician Review Additional Text: Physical Exam Gen: Alert, Oriented x3, slurring words, difficult to understand but improved HEENT: dry mucous membranes Pulm: diminished bilaterally, crackles at RLL CV: Regular rate/rhythm, Normal S1 S2 Abd: Normal bowel sounds, No tenderness Ext: no rash/no tenderness Neurological: slurred speech, b/l lower extremity contractures Problem List Severe sepsis secondary to suspected aspiration pneumonia-on [facility]enum at [facility] Acute renal failure Hypernatremia, hyperchloremia Dysphagia secondary to previous stroke Hypertension Severe sepsis secondary to suspected aspiration pneumonia-[facility] ertapenum at [facility]: Blood cultures obtained in the ED, gram stain positive, Cx: CONS in one; likely contaminant contine meropenem & vanc for now, ID consulted. [facility] for [facility] oxygen as needed speech therapy consulted - recommended NPO pt does seem more alert / more strength today, ST to continue assessing patient, will discuss with family regarding potential PEG placement PT/OT consulted Acute renal failure: Hypernatremia, hyperchloremia: Nephrology consulted, patient likely dehydrated, elevated CPK level, improving free water via dobhoff, on IVF as well Dysphagia secondary to previous stroke: Speech therapy consulted, NPO for now, may need PEG dobhoff for meds / feeds CT head shows subacute infarct, difficult to obtain accurate history - spoke with BRANDIE lan - stated has had 7 or so strokes in the past few months reports 1st one was ~2 months ago, and last one was ~2-3 weeks ago. With significant weakness - had to be lifted from car to disability office. Stated he had MRI at [facility] awaiting MRI records from [place] neurology consulted - recommend repeat MRI - confirmed subacute stroke Hypertension: Continue p.r.n. blood pressure medications at this time, nothing by mouth. Dispo: likely back to senior care once improved, in 48-72hrs re-eval by speech therapy, possible PEG placement will discuss with patient and family regarding potential need for PEG
--- NOTE | 2021-01-06 17:16 | P.PN ---
Subjective Date of Service: 01/06/21 Chief Complaint: Severe sepsis Subjective: Improving (more alert/oriented. still with difficulty talking / slurring, weak. oriented x2) Review of Systems 10-point ROS is otherwise unremarkable Physical Examination - Vital Signs Temperature: 99.1 F Blood Pressure: 172/71 Pulse: 64 Respirations: 18 Pulse Ox (%): 97 Assessment & Plan Physician Review Additional Text: Physical Exam Gen: Alert, Oriented x2, slurring words, difficult to understand but improving HEENT: dry mucous membranes Pulm: diminished bilaterally, crackles at RLL CV: Regular rate/rhythm, Normal S1 S2 Abd: Normal bowel sounds, No tenderness Ext: no rash/no tenderness Neurological: slurred speech, b/l lower extremity contractures Problem List Severe sepsis secondary to suspected aspiration pneumonia-on irtapenum at senior living Acute renal failure Hypernatremia, hyperchloremia Dysphagia secondary to previous stroke Hypertension Coffee ground gastric content Severe sepsis secondary to suspected aspiration pneumonia-on ertapenum at senior living: Blood cultures obtained in the ED, gram stain positive, Cx: CONS in one; likely contaminant contine meropenem & vanc for now, ID consulted. was on ertapenem at senior living for pneumonia continues with low grade temps oxygen as needed speech therapy consulted - recommended NPO, to re-eval today pt does seem more alert / more strength today, ST to continue assessing patient, will discuss with family regarding potential PEG placement high likelihood will need PEG dobhoff placed, picking tech consulted Acute renal failure: Hypernatremia, hyperchloremia: Nephrology consulted, patient likely dehydrated / prerenal, elevated CPK level, improving free water via dobhoff, on IVF as well Dysphagia secondary to previous stroke: Speech therapy consulted, NPO for now, may need PEG dobhoff for meds / feeds CT head shows subacute infarct, difficult to obtain accurate history - spoke with BRANDIE lan - stated has had 7 or so strokes in the past few months reports 1st one was ~2 months ago, and last one was ~2-3 weeks ago. With significant weakness - had to be lifted from car to disability office. Stated he had MRI at [facility] awaiting MRI records from [place] neurology consulted - recommend repeat MRI - confirmed subacute stroke Hypertension: Continue p.r.n. blood pressure medications at this time, nothing by mouth. Coffee ground gastric content noted on 01/05, hgb downtrending, possibly multifactorial, Patient has received 10-11 L IV fluid. Rectal exam performed today and negative Hemoccult. Denies any history of GI bleed Possibly from irritation of top off, patient has pulled twice Dispo: likely back to group home once improved re-eval by speech therapy, possible PEG placement will discuss with patient and family regarding potential need for PEG Time Spent Managing Pts Care (In Minutes): 35
[2021-01-06] MEDS: TERAZOSIN HCL 1 MG CAP PO SCH (21:30)
[2021-01-06] MEDS: MIRTAZAPINE 15 MG TAB PO SCH (21:33)
[2021-01-07] MEDS: D5W 1,000 ML IV SCH ×3 (04:39→20:05)
[2021-01-07] MEDS: PANTOPRAZOLE INJ 80 MG in NA CHLORIDE 0.9% 250 ML IV SCH ×3 (04:39→22:22)
[2021-01-07 04:41] LABS: Absolute Lymphocytes (CBC) 0.6 K/uL (0.7-4.9); Basophils % 0.2 % (0-1.3); Hematocrit 25.7 % (39.6-49.0); Lymphocytes % 5.8 % (15.3-44.8); MPV 10.8 fL (7.6-11.3); RBC Red Blood Cell Count 2.93 M/uL (4.33-5.43)
[2021-01-07 05:02] LABS: Albumin 1.9 g/dL (3.4-5.0); Bilirubin Total 0.4 mg/dL (0.2-1.0); Magnesium 1.9 mg/dL (1.8-2.4); Protein, Total 5.8 g/dL (6.4-8.2)
[2021-01-07] MEDS: VANCOMYCIN/NS 1 gm 1 GM/250 ML BAG IVPB SCH (05:37)
[2021-01-07 05:54] LABS: Blood Morphology Comment NOT SEEN (NOT SEEN); Platelet Estimate ADEQ
[2021-01-07] MEDS: Meropenem 500 MG in NA CHLORIDE 0.9% 100 ML IV SCH ×2 (10:00→22:23)
[2021-01-07] MEDS: FOLIC ACID 1 MG TABLET PO SCH (10:03)
[2021-01-07] MEDS: HYDRALAZINE HCL 25 MG TABLET PO SCH ×3 (10:03→22:23)
[2021-01-07] MEDS: RISPERIDONE 1 MG TABLET PO SCH ×2 (10:03→22:24)
[2021-01-07] MEDS: carvediloL 12.5 MG TAB PO SCH ×2 (10:04→22:23)
[2021-01-07] MEDS: LOSARTAN POTASSIUM 50 MG TABLET PO SCH (10:05)
[2021-01-07] MEDS: SENOSIDES 8.6 MG TAB PO SCH (10:05)
[2021-01-07] MEDS: DESMOPRESSIN 4 MCG/ML AMP SQ SCH (10:06)
[2021-01-07] MEDS: THIAMINE HCL 100 MG TABLET PO SCH (10:07)
[2021-01-07] MEDS ORDERED: JEVITY 1.2 CAL LIQUID 1,000 ML BOT RTH SCH (15:00)
--- NOTE | 2021-01-07 20:06 | P.PN ---
Subjective Date of Service: 01/07/21 Chief Complaint: Severe sepsis Subjective: Improving (awake/alert, denies pain, denies difficulty breathing, denies nausea/vomiting) Review of Systems 10-point ROS is otherwise unremarkable Physical Examination - Vital Signs Temperature: 98.9 F Blood Pressure: 150/72 Pulse: 58 Respirations: 20 Pulse Ox (%): 98 Assessment & Plan Physician Review Additional Text: Physical Exam Gen: Alert, Oriented x2, slurring words, difficult to understand at times HEENT: dry mucous membranes, NG tube in place Pulm: diminished bilaterally, nonlabored CV: Regular rate/rhythm, Normal S1 S2 Abd: Normal bowel sounds, No tenderness Ext: no rash/no tenderness Neurological: slurred speech, b/l lower extremity contractures, hunched over, laying on left side Problem List Severe sepsis secondary to suspected aspiration pneumonia-on irtapenum at [facility] Acute renal failure Dysphagia secondary to previous stroke Hypernatremia, hyperchloremia Hypertension Coffee ground gastric content Severe sepsis secondary to suspected aspiration pneumonia-on ertapenum at [facility]: Blood cultures obtained in the ED, gram stain positive, Cx: CONS in one; likely contaminant contine meropenem & vanc for now, ID consulted. was on ertapenem at [facility] for pneumonia continues with low grade temps / borderline fever, will re-culture oxygen as needed speech therapy consulted - recommended NPO dobhoff placed, Jevity 1.2 ordered will likely need PEG - asked patient today, states he would like to "wait it out" and see if he improves. Discussed can get PEG tube and eat PO if eventually improves need to discuss with family, no answer when called, nobody has been by to visit difficult to have longer / meaningful conversations with patient due to slurring and some confusion Acute renal failure: Hypernatremia, hyperchloremia: Nephrology consulted, improving with IVF free water via dobhoff, on IVF as well - decrease today Dysphagia secondary to previous stroke: Speech therapy consulted, NPO for now, may need PEG dobhoff for meds / feeds CT head shows subacute infarct, difficult to obtain accurate history - spoke with BRANDIE lan - stated has had 7 or so strokes in the past few months reports 1st one was ~2 months ago, and last one was ~2-3 weeks ago. With significant weakness - had to be lifted from car to disability office. Stated he had MRI at [facility] neurology consulted - recommend repeat MRI - confirmed subacute stroke Hypertension: Continue p.r.n. blood pressure medications at this time, nothing by mouth. Coffee ground gastric content noted on 01/05, hgb downtrending, possibly multifactorial, Patient has received 10-11 L IV fluid. Rectal exam performed today and negative Hemoccult. Denies any history of GI bleed Possibly from irritation of dobhoff, patient has pulled twice Dispo: likely back to residential once improved possible PEG placement - will discuss with patient and family regarding potential need for PEG Time Spent Managing Pts Care (In Minutes): 40
[2021-01-07] MEDS: MIRTAZAPINE 15 MG TAB PO SCH (22:23)
[2021-01-07] MEDS: TERAZOSIN HCL 1 MG CAP PO SCH (22:23)
[2021-01-08] MEDS: PANTOPRAZOLE INJ 80 MG in NA CHLORIDE 0.9% 250 ML IV SCH ×3 (01:00→09:27)
[2021-01-08 04:31] LABS: Absolute Lymphocytes (CBC) 0.7 K/uL (0.7-4.9); Basophils % 0.2 % (0-1.3); Hematocrit 23.9 % (39.6-49.0); Lymphocytes % 7.6 % (15.3-44.8); MPV 10.4 fL (7.6-11.3); RBC Red Blood Cell Count 2.76 M/uL (4.33-5.43)
[2021-01-08 04:46] LABS: Magnesium 1.8 mg/dL (1.8-2.4); Potassium 3.7 mmol/L (3.5-5.1)
[2021-01-08] MEDS: ACETAMINOPHEN 325 MG TABLET FT PRN ×3 (05:13→17:40)
[2021-01-08] MEDS ORDERED: MAGNESIUM SULFATE 1 gm IVPB 1 GM/100 ML BAG IV ONE (07:30)
[2021-01-08] MEDS ORDERED: KCL 20 MEQ/100 mL IVPB 20 MEQ/100 ML BAG IV ONE (08:30)
[2021-01-08] MEDS: FOLIC ACID 1 MG TABLET PO SCH (09:00)
[2021-01-08] MEDS: HYDRALAZINE HCL 25 MG TABLET PO SCH ×3 (09:00→21:40)
[2021-01-08] MEDS: carvediloL 12.5 MG TAB PO SCH ×2 (09:00→21:40)
[2021-01-08] MEDS: DESMOPRESSIN 4 MCG/ML AMP SQ SCH (09:00)
[2021-01-08] MEDS: Meropenem 500 MG in NA CHLORIDE 0.9% 100 ML IV SCH ×2 (09:00→20:35)
[2021-01-08] MEDS: RISPERIDONE 1 MG TABLET PO SCH ×2 (09:00→21:40)
[2021-01-08] MEDS: LOSARTAN POTASSIUM 50 MG TABLET PO SCH (09:00)
[2021-01-08] MEDS: SENOSIDES 8.6 MG TAB PO SCH (09:00)
[2021-01-08] MEDS: THIAMINE HCL 100 MG TABLET PO SCH (09:00)
[2021-01-08] MEDS: D5W 1,000 ML IV SCH ×2 (09:25→22:45)
--- NOTE | 2021-01-08 11:22 | P.PN ---
Subjective Date of Service: 01/08/21 Chief Complaint: Severe sepsis Subjective: Other (Patient reports not feeling well today, unable to be more specific, difficult to understand at times. febrile. blood cultures repeated yesterday, pending. patient states he is open to PEG tube now. Spoke with CHRISTOPHER who stated patient's in agreement about PEG if needed.) Review of Systems 10-point ROS is otherwise unremarkable Physical Examination - Vital Signs Temperature: 100.7 F Blood Pressure: 142/65 Pulse: 59 Respirations: 20 Pulse Ox (%): 99 Assessment & Plan Physician Review Additional Text: Physical Exam Gen: Alert, Oriented x2, slurring words, difficult to understand at times, drool from mouth HEENT: NG tube in place Pulm: diminished bilaterally, nonlabored CV: Regular rate/rhythm, Normal S1 S2 Abd: soft, Normal bowel sounds, possible tenderness (difficult to ascertain) Ext: no rash/no tenderness Neurological: slurred speech, b/l lower extremity contractures, hunched over, laying on left side, seems to be responding appropriately, but difficult to un derstand Problem List Severe sepsis secondary to suspected aspiration pneumonia-on irtapenum at [facility] Acute renal failure Dysphagia secondary to previous stroke Hypernatremia, hyperchloremia Hypertension Coffee ground gastric content Severe sepsis secondary to suspected aspiration pneumonia-on ertapenum at [facility]: Blood cultures obtained in the ED, gram stain positive, Cx: CONS in one; likely contaminant contine meropenem & vanc for now, ID consulted and agreed. was on [facility]apenem at [facility] for pneumonia continued with low grade temps / borderline fever, blood cultures obtained last night, febrile today will obtain CT chest/abd/pelvis as patient is unable to fully express his symptoms/concerns speech therapy consulted - recommended NPO. dobhoff placed, Jevity 1.2 ordered will likely need PEG - pt states he is ok with it if needed, spoke with CHRISTOPHER - states his is in agreement as well will consult Dr. Calles for PEG tube placement, for EGD as well given anemia and recently reported coffee ground gastric output Acute renal failure: Hypernatremia, hyperchloremia: Nephrology consulted, improving with IVF free water via dobhoff, on IVF as well Dysphagia secondary to previous stroke: Speech therapy consulted, NPO for now, may need PEG dobhoff for meds / feeds CT head shows subacute infarct family states patient had stroke ~2 months prior to this admission, and believe he had one 1-2 weeks prior to admission as well neurology consulted - recommended repeat MRI - confirmed subacute stroke Hypertension: Continue p.r.n. blood pressure medications at this time, nothing by mouth. Coffee ground gastric content noted on 01/05, hgb downtrending, possibly multifactorial, Patient has received >10-11 L IV fluid. Rectal exam performed today and negative Hemoccult. Denies any history of GI bleed, CHRISTOPHER reports no knowledge of prior anemia, but she is unsure Possibly from irritation of dobhoff, patient has pulled twice Dr. Calles consulted - possible EGD, possibly at time of PEG placement Dispo: likely back to long-term once improved possible PEG placement - CHRISTOPHER states she will bring patient's to hospital tomorrow around 9 am to further discuss Time Spent Managing Pts Care (In Minutes): 40
--- NOTE | 2021-01-08 13:12 | RAD REPORT ---
EXAM DESCRIPTION: CT - CT CHEST,ABD,PELVIS W/O - 01/08/2021 12:02 pm CLINICAL HISTORY: Sepsis COMPARISON: Abdomen and chest examinations January 03 TECHNIQUE: Axial 5 millimeter thick images of the chest abdomen and pelvis were obtained without ora l or IV contrast. All CT scans are performed using dose optimization technique as appropriate and may include automated exposure control or mA/KV adjustment according to patient size. FINDINGS: Patchy airspace opacification is present in the superior segment right lower lobe extendin g into the medial right base. Mid and inferior aspects of the left lower lobe show airspace opacifica tion with posterior gutter consolidation on the left. Upper lobes are clear. No significant middle lo be abnormality. Pneumothorax or pleural effusion. No mediastinal or hilar mass or abnormal lymphadenopathy. Coronary artery calcifications are present. No pericardial effusion. No chest wall mass or abnormal axillary lymphadenopathy. Right-sided Port-A-Cath is in place. Feeding tube is in place in the proximal stomach. The liver, spleen, pancreas, gallbladder, biliary tree, adrenal glands and kidneys show no acute proc ess on noncontrast imaging. Gallstones can be occult on CT imaging. No gastric dilatation or wall thickening. No dilated small bowel loop. Moderately large stool volume distends the rectosigmoid colon. Rectum is dilated to 7.5 cm in diameter. No wall thickening or edema . No free air, free fluid or inflammatory stranding. Gaona catheter is in place. Urinary bladder is partially filled. Air in the bladder lumen is presumed to be sequela of the catheter placement. IMPRESSION: CT scan of the chest shows bilateral lower lobe pneumonia worse on the left. No cavitati on or lung parenchymal abscess seen. Large stool volume distends the rectosigmoid colon. No wall thickening or other colitis findings. As detailed above, no abnormality in the abdomen and pelvis seen as a source for sepsis. Overall assessment is limited in the absence of oral and IV contrast. No other significant findings on chest, abdomen and upper pelvis examination.
[2021-01-08 14:48] LABS: Absolute Lymphocytes (CBC) 0.6 K/uL (0.7-4.9); Basophils % 0.2 % (0-1.3); Hematocrit 22.4 % (39.6-49.0); Lymphocytes % 5.9 % (15.3-44.8); MPV 9.9 fL (7.6-11.3)
[2021-01-08 15:06] LABS: Albumin 1.5 g/dL (3.4-5.0); Bilirubin Total 0.3 mg/dL (0.2-1.0); Magnesium 2.1 mg/dL (1.8-2.4); Phosphorus 2.8 mg/dL (2.5-4.9); Potassium 4.3 mmol/L (3.5-5.1); Protein, Total 5.1 g/dL (6.4-8.2)
[2021-01-08] MEDS ORDERED: FLEET ENEMA ADULT PR ONE (16:00)
[2021-01-08] MEDS ORDERED: FLUCONAZOLE 400 MG IVPB 400 MG/200 ML BAG IV SCH (16:15)
[2021-01-08] MEDS ORDERED: FLUCONAZOLE 400 MG IVPB 400 MG/200 ML BAG IV ONE (16:30)
[2021-01-08 16:46] LABS: Protime INR 1.09
[2021-01-08] MEDS ORDERED: SODIUM CHLORIDE 0.9% 10ML INJ IV PRN (17:06)
[2021-01-08] MEDS ORDERED: ALTEPLASE 2 MG/VIAL IV SCH (18:00)
[2021-01-08] MEDS: VANCOMYCIN/NS 1 gm 1 GM/250 ML BAG IVPB SCH (18:05)
[2021-01-08] MEDS: HEPARIN/D5W 25,000 UNIT/500 ML BAG IV PRN (18:12)
[2021-01-08 20:24] LABS: Absolute Lymphocytes (CBC) 0.6 K/uL (0.7-4.9); Basophils % 0.3 % (0-1.3); Hematocrit 23.1 % (39.6-49.0); Lymphocytes % 5.2 % (15.3-44.8); RBC Red Blood Cell Count 2.68 M/uL (4.33-5.43)
--- NOTE | 2021-01-08 20:52 | RAD REPORT ---
EXAM DESCRIPTION: US - Extrem Venous W Compress Chuck - 01/08/2021 8:46 pm CLINICAL HISTORY: r/o DVT, leg pain and swelling COMPARISON: None. TECHNIQUE: Real-time sonographic evaluation of the bilateral lower extremity common femoral, superfi cial femoral, popliteal and posterior tibial veins was performed. FINDINGS: Normal compressibility, flow augmentation, phasic flow and spontaneous flow are identified in the left and right lower extremity common femoral, superficial femoral, popliteal and posterior t ibial veins. No intraluminal filling defects seen. IMPRESSION: No DVT in either lower extremity.
[2021-01-08] MEDS: MIRTAZAPINE 15 MG TAB PO SCH (21:40)
[2021-01-08] MEDS: PANTOPRAZOLE 40 MG INJ IVP SCH (21:40)
[2021-01-08] MEDS: TERAZOSIN HCL 1 MG CAP PO SCH (21:40)
[2021-01-08] MEDS ORDERED: WATER FOR INJ,STERILE 10 ML ONE (21:49)
[2021-01-08] MEDS ORDERED: FLUCONAZOLE 200mg IVPB 400 MG/200 ML BAG IV ONE (22:30)
[2021-01-09 03:20] LABS: Urine Appearance CLOUDY; Urine Bilirubin NEGATIVE (NEG); Urine Blood NEGATIVE (NEG); Urine Color YELLOW; Urine Glucose NEGATIVE (NEG); Urine Protein 1+ (NEG); Urine Urobilinogen 0.2 mg/dL (0.2-1.0); Urine pH 5.5 (5.0-7.0)
[2021-01-09 03:22] LABS: Urine Microscopic Reflex ORDER UMIC
[2021-01-09 03:44] LABS: Absolute Lymphocytes (CBC) 0.5 K/uL (0.7-4.9); Basophils % 0.3 % (0-1.3); Lymphocytes % 5.2 % (15.3-44.8); MPV 10.2 fL (7.6-11.3); RBC Red Blood Cell Count 2.66 M/uL (4.33-5.43)
[2021-01-09 03:54] LABS: Potassium 4.1 mmol/L (3.5-5.1)
[2021-01-09 04:56] LABS: Urine Bacteria <20 /HPF (NONE SEEN); Urine RBC NONE SEEN /HPF (NONE SEEN); Urine Urothelial Cells <5 /HPF (NONE SEEN); Urine Yeast MANY (NONE SEEN); Urine Yeast with Hyphae PRESENT
[2021-01-09] MEDS ORDERED: LIDOCAINE 1% MPF 5 ML VIAL ONE (08:48)
[2021-01-09] MEDS ORDERED: propofoL 200 MG/20 ML VIAL IV ONE (08:48)
[2021-01-09] MEDS ORDERED: NS 0.9% VIAL 0 ML ONE (08:48)
[2021-01-09] MEDS ORDERED: Phenylephrine HCl 10 MG/ML 1 ML VIAL ONE (08:48)
[2021-01-09] MEDS: HYDRALAZINE HCL 25 MG TABLET PO SCH ×3 (09:00→20:35)
[2021-01-09] MEDS: LOSARTAN POTASSIUM 50 MG TABLET PO SCH ×2 (09:00→18:42)
[2021-01-09] MEDS: carvediloL 12.5 MG TAB PO SCH ×2 (09:00→20:35)
[2021-01-09] MEDS: SENOSIDES 8.6 MG TAB PO SCH (09:00)
--- NOTE | 2021-01-09 09:47 | RAD REPORT ---
EXAM DESCRIPTION: RAD - Chest Single View - 01/09/2021 9:39 am CLINICAL HISTORY: SOB, Pneumonia Chest pain. COMPARISON: Abdomen 1 View (KUB) dated 01/06/2021; Abdomen 1 View (KUB) dated 01/04/2021; Chest Single View dated 01/03/2021; Chest Single View dated 01/02/2021; CT CHEST,ABD,PELVIS W/O dated 01/08/2021 FINDINGS: Portable technique limits examination quality. Patchy opacity is present in the right lung base, appearing mildly progressive since the comparative study. The heart is upper limit normal in size. No displaced fractures.Right-sided PICC line has tip in the SVC. IMPRESSION: Mild worsening in right lung base infiltrate since prior study.
[2021-01-09] MEDS: Meropenem 500 MG in NA CHLORIDE 0.9% 100 ML IV SCH ×2 (09:56→20:33)
[2021-01-09] MEDS: PANTOPRAZOLE 40 MG INJ IVP SCH ×2 (09:57→20:34)
[2021-01-09] MEDS: DESMOPRESSIN 4 MCG/ML AMP SQ SCH (09:57)
--- NOTE | 2021-01-09 12:41 | P.CNS ---
Date of Consult: 01/09/21 Reason for Consult: Non resolving pneumoniae Chief Complaint: Severe sepsis History of Present Illness: Patient is 65 years of age a senior living resident with a history of stroke dysphagia presented to the emergency room with shortness of breath pneumonia he was apparently on troponin from pneumonia this is a mention of aspiration really he develop some fever yesterday chest x-ray looked a little worse on the right side patient is been declining in the senior living he looks well today he has not had any fever Allergies No Known Allergies Allergy (Verified 01/03/21 00:05) Home Medications: Carvedilol [Coreg] 12.5 mg PO BID 01/03/21 Cholecalciferol (Vitamin D3) [Vitamin D3] 1 cap PO DAILY 01/03/21 Clopidogrel Bisulfate [Plavix*] 75 mg PO DAILY 01/03/21 Folic Acid 1 mg PO DAILY 01/03/21 Hydralazine HCl 100 mg PO Q8H 01/03/21 Losartan Potassium 100 mg PO DAILY 01/03/21 Mirtazapine [Remeron*] 45 mg PO BEDTIME 01/03/21 NIFEdipine [Nifedipine ER] 60 mg PO DAILY 01/03/21 Risperidone [Risperdal] 2 mg PO BID 01/03/21 Sennosides [Senna] 1 tab PO DAILY 01/03/21 Terazosin HCl 2 mg PO BEDTIME 01/03/21 Thiamine HCl 100 mg PO DAILY 01/03/21 Zinc Amino Acid Chelate [Zinc] 50 mg PO DAILY 01/03/21 - Past Medical/Surgical History Diabetic: No -: CVA with resulting dysphagia -: Hypertension Psychosocial/ Personal History: Patient currently resides in senior living, prior lived with sister. - Social History Alcohol use: No CD- Drugs: No Caffeine use: No Place of Residence: [facility] Review of Systems is unable to be obtained Physical Examination Temp Pulse Resp BP Pulse Ox 98.3 F 70 20 186/87 H 95 01/09/21 08:00 01/09/21 08:00 01/09/21 08:00 01/09/21 08:00 01/09/21 08:00 General: Alert, In no apparent distress Respiratory: Clear to auscultation bilaterally, Diminished Cardiovascular: Edema - Problems (1) Pneumonia Current Visit: Yes Status: Acute Plan: Patient is 65 years of age a senior living resident admitted with pneumonia white greater than the left this x-ray may show some slight worsening patient has chronic renal f failure renal function is improved mildly anemic is currently anti coagulated patient's blood pressure has been elevated patient has some fever on 01/08 he is afebrile now white count is normal awaiting PEG tube pro calcitonin level is declining saturation is satisfactory I doubt if this is pulmonary embolism D-dimer elevated on admission agree probably had aspiration pneumonia renal function has improved with IV fluids I do not think this is pulmonary embolism occur lower extremity Dopplers Dc heparin he has had adequate treatment with antibiotics Dc vancomycin if the cultures are negative patient is at risk for fungal infection continue with Diflucan for now patient has yeast present in the urine Ms. slight decline in his hemoglobin once years a PEG tube in switch him over to Augmentin and doxycycline in addition to Diflucan saturation normal Qualifiers: Pneumonia type: due to unspecified organism Laterality: bilateral
--- NOTE | 2021-01-09 14:51 | P.PN ---
Subjective Date of Service: 01/09/21 Chief Complaint: Severe sepsis Subjective: No new changes, Doing well Review of Systems 10-point ROS is otherwise unremarkable Physical Examination - Vital Signs Temperature: 97.6 F Blood Pressure: 122/77 Pulse: 63 Respirations: 20 Pulse Ox (%): 97 - Physical Exam General: Alert, In no apparent distress HEENT: Atraumatic, Normocephalic Neck: Supple, 2+ carotid pulse no bruit, JVD not distended, No Thyromegaly Respiratory: Clear to auscultation bilaterally, Normal air movement, Diminished Cardiovascular: No edema, Normal pulses, Regular rate/rhythm Capillary refill: <2 Seconds Gastrointestinal: Normal bowel sounds, Tenderness (to right LQ) Integumentary: No rashes, No breakdown, No significant lesion
--- NOTE | 2021-01-09 14:59 | P.PN ---
Subjective Date of Service: 01/09/21 Chief Complaint: Severe sepsis Patient seen and examined at bedside, no acute complaints, doing well. Afebrile. Review of Systems 10-point ROS is otherwise unremarkable Physical Examination - Vital Signs Temperature: 97.6 F Blood Pressure: 122/77 Pulse: 63 Respirations: 20 Pulse Ox (%): 97 - Physical Exam General: Alert, In no apparent distress HEENT: Atraumatic, Normocephalic Neck: Supple, 2+ carotid pulse no bruit, JVD not distended Respiratory: Other (reduced breath sonds bilaterally) Cardiovascular: No edema, Normal pulses, Regular rate/rhythm Gastrointestinal: Normal bowel sounds, Soft and benign, Non-distended Musculoskeletal: No clubbing, No swelling Integumentary: Other (sacroccocyx stage 3 healing ulcer) Assessment And Plan - Plan Assessment -severe sepsis -aspiration pneumonia -anemia -sacrococcyx stage 3 healing wound plan: -speis: continue to monitor vitals. Vitals stable, leukocytosis resolved. -pneumonia: continue meropenum and vancomycin -sacrococcyx ulcer: apply barrier cream and cover with foam -medical management per primary team -continue to monitor CBC and BMP -monitor for signs of infection Plan of care discussed with Dr. Salmeron. Thank you for consultation.
--- NOTE | 2021-01-09 16:46 | P.PN ---
Subjective Date of Service: 01/09/21 Chief Complaint: Severe sepsis Subjective: Improving (much more alert/awake today, oriented x2. reports feeling ok, doesn't fully remember past few days) Review of Systems 10-point ROS is otherwise unremarkable Physical Examination - Vital Signs Temperature: 97.6 F Blood Pressure: 122/77 Pulse: 63 Respirations: 20 Pulse Ox (%): 97 Assessment & Plan Physician Review Additional Text: Physical Exam Gen: Alert, Oriented x2, slurring words HEENT: pulled dobhoff Pulm: diminished bilaterally, nonlabored CV: Regular rate/rhythm, Normal S1 S2 Abd: soft, Normal bowel sounds, nontender Ext: no rash/no tenderness Neurological: slurred speech, b/l lower extremity contractures, hunched over Problem List Severe sepsis secondary to suspected aspiration pneumonia-on irtapenum at [facility] Acute renal failure Dysphagia secondary to previous stroke Hypernatremia, hyperchloremia Hypertension Coffee ground gastric content Severe sepsis secondary to suspected aspiration pneumonia-on ertapenum at [facility]: Blood cultures obtained in the ED, gram stain positive, Cx: CONS in one; likely contaminant contine meropenem & vanc for now, ID consulted and agreed. was on ertapenem at [facility] for pneumonia for 2 weeks. PICC line has was placed ~2 weeks prior to admission, pending blood cultures, then can pull and culture tip was febrile and lethargic on 01/08 - cultures pending; CT chest showed worsening pneumonia speech therapy consulted - recommended NPO. dobhoff placed, Jevity 1.2 ordered, however patient pulled overnight. will have ST re-eval today since patient is more alert may still need PEG - depending on if he passes swallow - if can take adequate nutrition pt states he is ok with it if needed, spoke with CHRISTOPHER - states his is in agreement as well Dr. Calles consulted for PEG tube placement Acute renal failure: Hypernatremia, hyperchloremia: Nephrology consulted, improving with IVF free water via dobhoff, on IVF as well Dysphagia secondary to previous stroke: Speech therapy consulted, to re-eval today CT head shows subacute infarct family states patient had stroke ~2 months prior to this admission, and believe he had one 1-2 weeks prior to admission as well neurology consulted - recommended repeat MRI - confirmed subacute stroke Hypertension: Continue p.r.n. blood pressure medications at this time, nothing by mouth. Coffee ground gastric content noted on 01/05, hgb downtrending, possibly multifactorial, Patient has received >10-11 L IV fluid. Rectal exam performed on 01/06 and negative Hemoccult. Denies any history of GI bleed, CHRISTOPHER reports no knowledge of prior anemia, but she is unsure Possibly from irritation of dobhoff, patient pulled twice Dr. Calles consulted - possible EGD, possibly at time of PEG placement if needed Dispo: likely back to intermediate once improved Time Spent Managing Pts Care (In Minutes): 35
[2021-01-09] MEDS: RISPERIDONE 1 MG TABLET PO SCH ×2 (17:22→20:34)
[2021-01-09] MEDS: THIAMINE HCL 100 MG TABLET PO SCH (17:23)
[2021-01-09] MEDS: FLUCONAZOLE 200mg IVPB 200 MG/100 ML BAG IV SCH (17:23)
[2021-01-09] MEDS: FOLIC ACID 1 MG TABLET PO SCH (17:23)
--- NOTE | 2021-01-09 20:26 | P.PN ---
Subjective Date of Service: 01/09/21 Chief Complaint: Severe sepsis Subjective: No new changes Physical Examination - Vital Signs Temperature: 97.6 F Blood Pressure: 122/77 Pulse: 63 Respirations: 20 Pulse Ox (%): 97 - Physical Exam General: Alert, Delirious HEENT: Atraumatic, Normocephalic, PERRLA Neck: Supple, 2+ carotid pulse no bruit, JVD not distended Respiratory: Clear to auscultation bilaterally, Normal air movement Cardiovascular: No edema, Normal pulses, Regular rate/rhythm, Normal S1 S2 Gastrointestinal: Normal bowel sounds, Soft and benign, Non-distended Musculoskeletal: Clubbing, Contractures Integumentary: No rashes, No breakdown Neurological: Abnormal speech, Abnormal strength Assessment And Plan - Current Problems (Diagnosis) (1) ARF (acute renal failure) Current Visit: Yes Status: Acute (2) HTN (hypertension) Current Visit: Yes Status: Acute (3) CVA (cerebral vascular accident) Current Visit: Yes Status: Acute (4) Pneumonia Current Visit: Yes Status: Acute Qualifiers: Pneumonia type: due to unspecified organism Laterality: bilateral Physician Review: Patient Assessed, Agree with Above Assessment and Plan Physician Review Additional Text: ERASMO- likely due to pre-renal with component of Hypotension induced ATN Hypernatremia-resolved. CVA with Dysphagia HTN Met Encephalopathy Sepsis with RUL Pneumonia r/o UGI bleed Anemia PLAN - creatinine improving to 1.82 -serum sodium improved to 136 -c/w hypotonic fluid -s/p removed feeding tube - f/u h/h Time Spent Managing PTS Care (In Minutes): 35
[2021-01-09] MEDS: D5W 1,000 ML IV SCH (20:34)
[2021-01-09] MEDS: TERAZOSIN HCL 1 MG CAP PO SCH (20:34)
[2021-01-09] MEDS: MIRTAZAPINE 15 MG TAB PO SCH (20:35)
[2021-01-09 21:10] LABS: Hematocrit 22.1 % (39.6-49.0); MPV 9.7 fL (7.6-11.3); RBC Red Blood Cell Count 2.57 M/uL (4.33-5.43)
[2021-01-09] MEDS: HEPARIN/D5W 25,000 UNIT/500 ML BAG IV PRN (22:10)
--- NOTE | 2021-01-10 05:52 | P.PN ---
Subjective Date of Service: 01/10/21 Chief Complaint: Severe sepsis Subjective: No new changes Physical Examination - Vital Signs Temperature: 98.2 F Blood Pressure: 186/86 Pulse: 66 Respirations: 18 Pulse Ox (%): 97 - Physical Exam General: Alert HEENT: Atraumatic, Normocephalic, PERRLA Neck: Supple, 2+ carotid pulse no bruit Respiratory: Clear to auscultation bilaterally, Normal air movement Gastrointestinal: Normal bowel sounds, Soft and benign, Non-distended Musculoskeletal: No clubbing, No swelling Assessment And Plan - Current Problems (Diagnosis) (1) ARF (acute renal failure) Current Visit: Yes Status: Acute (2) HTN (hypertension) Current Visit: Yes Status: Acute (3) CVA (cerebral vascular accident) Current Visit: Yes Status: Acute (4) Pneumonia Current Visit: Yes Status: Acute Qualifiers: Pneumonia type: due to unspecified organism Laterality: bilateral Physician Review: Patient Assessed, Agree with Above Assessment and Plan Physician Review Additional Text: ERASMO- likely due to pre-renal with component of Hypotension induced ATN Hypernatremia-resolved. CVA with Dysphagia HTN Met Encephalopathy Sepsis with RUL Pneumonia r/o UGI bleed Anemia PLAN -hemoglobin trending down , consider PRBC today follow repeat creatinine -prior creatinine improving to 1.82 -serum sodium improved ,can switch to NS now -s/p removed feeding tube
[2021-01-10 06:00] LABS: Absolute Lymphocytes (CBC) 0.9 K/uL (0.7-4.9); Basophils % 0.4 % (0-1.3); Hematocrit 19.3 % (39.6-49.0); MPV 9.8 fL (7.6-11.3); RBC Red Blood Cell Count 2.24 M/uL (4.33-5.43)
[2021-01-10 06:07] LABS: Magnesium 1.8 mg/dL (1.8-2.4); Potassium 3.7 mmol/L (3.5-5.1)
[2021-01-10] MEDS ORDERED: MAGNESIUM SULFATE 1 gm IVPB 1 GM/100 ML BAG IV ONE (07:08)
[2021-01-10 08:36] LABS: Blood Morphology Comment NOTED (NOT SEEN); Ovalocytes 1+; Platelet Estimate ADEQ; Platelets, Giant FEW; White Blood Cell Scan OK (OK)
[2021-01-10] MEDS ORDERED: KCL 20 MEQ/100 mL IVPB 20 MEQ/100 ML BAG IV SCH (09:00)
[2021-01-10] MEDS: cloNIDine HCL 0.1 MG TAB PO SCH ×3 (09:00→22:52)
[2021-01-10] MEDS: DESMOPRESSIN 4 MCG/ML AMP SQ SCH (09:00)
--- NOTE | 2021-01-10 09:21 | ECHO ---
HEIGHT: 5 ft 6 in WEIGHT: 132 lb 11.2 oz DATE OF STUDY: 01/09/[address]: Jovani Hanna MD 2-DIMENSIONAL: YES M.MODE: YES DOPPLER: YES COLOR FLOW: YES TDS: YES PORTABLE: NO DEFINITY: NO BUBBLE STUDY: NO DIAGNOSIS: PE CARDIAC HISTORY: CATHERIZATION: SURGERY: PROSTHETIC VALVE: PACEMAKER: MEASUREMENTS (cm) DIASTOLIC (NORMALS) SYSTOLIC (NORMALS) IVSd 1.0 (0.6-1.2) LA Diam 3.6 (1.9-4.0) LVEF 55-60% LVIDd 4.5 (3.5-5.7) LVIDs 2.7 (2.0-3.5) %FS 39% LVPWd 1.1 (0.6-1.2) Ao Diam 3.2 (2.0-3.7) 2 DIMENSIONAL ASSESSMENT: RIGHT ATRIUM: NORMAL LEFT ATRIUM: NORMAL RIGHT VENTRICLE: NORMAL LEFT VENTRICLE: NORMAL TRICUSPID VALVE: NORMAL MITRAL VALVE: NORMAL PULMONIC VALVE: NORMAL AORTIC VALVE: NORMAL PERICARDIAL EFFUSION: NONE AORTIC ROOT: NORMAL LEFT VENTRICULAR WALL MOTION: NORMAL DOPPLER/COLOR FLOW: NORMAL COMMENTS: NORMAL LEFT VENTRICULAR EJECTION FRACTION 55-60% WITH NORMAL WALL MOTION. MILD DIASTOLIC DYSFUNCTION. TECHNOLOGIST: Nely ALMAZAN
[2021-01-10] MEDS: carvediloL 12.5 MG TAB PO SCH ×2 (09:28→21:00)
[2021-01-10] MEDS: FOLIC ACID 1 MG TABLET PO SCH (09:28)
[2021-01-10] MEDS: THIAMINE HCL 100 MG TABLET PO SCH (09:29)
[2021-01-10] MEDS: RISPERIDONE 1 MG TABLET PO SCH ×2 (09:29→22:52)
[2021-01-10] MEDS: HYDRALAZINE HCL 25 MG TABLET PO SCH ×3 (09:29→22:51)
[2021-01-10] MEDS: SENOSIDES 8.6 MG TAB PO SCH (09:29)
[2021-01-10] MEDS: PANTOPRAZOLE 40 MG INJ IVP SCH ×2 (09:30→22:53)
--- NOTE | 2021-01-10 10:32 | P.PN ---
Subjective Date of Service: 01/10/21 Chief Complaint: Severe sepsis Patient seen and examined at bedside, no acute complaints, doing well. Blood cultures and urine cultures grew yeast. Patient started on fluconazole on 01/09. Continue for two weeks after a negative blood culture result. continue meropenum for aspiration pneumonia. Patient tolerating antibiotic well. Review of Systems 10-point ROS is otherwise unremarkable Physical Examination - Vital Signs Temperature: 97.4 F Blood Pressure: 189/85 Pulse: 65 Respirations: 16 Pulse Ox (%): 97 - Physical Exam General: Confused, Other (altered mental status) HEENT: Atraumatic, Normocephalic Neck: Supple, 2+ carotid pulse no bruit, JVD not distended Respiratory: Clear to auscultation bilaterally Cardiovascular: No edema, Normal pulses Capillary refill: <2 Seconds Gastrointestinal: Normal bowel sounds, Soft and benign Musculoskeletal: No clubbing, No swelling Integumentary: Other (healing stage 3 sacrococcyx ulcer. ) - Studies Microbiology 01/02/21 15:05 Blood - Blood Aerobic Blood Culture - Final 01/02/21 15:05 Blood - Blood Blood Culture Gram Stain - Final 01/02/21 15:05 Blood - Blood Anaerobic Blood Culture - Final Laboratory Last Values WBC 23.50 K/uL (4.3-10.9) H* 01/02/21 14:56 RBC 3.91 M/uL (4.33-5.43) L 01/02/21 14:56 Hgb 11.3 g/dL (13.6-17.9) L 01/02/21 14:56 Hct 35.0 % (39.6-49.0) L 01/02/21 14:56 MCV 89.3 fL (80-100) 01/02/21 14:56 MCH 28.8 pg (27.0-35.0) 01/02/21 14:56 MCHC 32.2 g/dL (32.0-36.0) 01/02/21 14:56 RDW 15.2 % (12.1-15.2) 01/02/21 14:56 Plt Count 336 K/uL (152-406) 01/02/21 14:56 MPV 10.6 fL (7.6-11.3) 01/02/21 14:56 Neutrophils % 91.7 % (41.7-73.7) H 01/02/21 14:56 Lymphocytes % 3.7 % (15.3-44.8) L 01/02/21 14:56 Monocytes % 3.7 % (3.3-12.3) 01/02/21 14:56 Eosinophils % 0.6 % (0-4.4) 01/02/21 14:56 Basophils % 0.3 % (0-1.3) 01/02/21 14:56 Absolute Neutrophils 21.5 K/uL (1.8-8.0) H 01/02/21 14:56 Segmented Neutrophils 85 % (40-80) H 01/02/21 14:56 Band Neutrophils 2 % (0-1) H 01/02/21 14:56 Absolute Lymphocytes 0.9 K/uL (0.7-4.9) 01/02/21 14:56 Lymphocytes 7 % (15-42) L 01/02/21 14:56 Monocytes 5 % (0-10) 01/02/21 14:56 Absolute Monocytes 0.9 K/uL (0.1-1.3) 01/02/21 14:56 Eosinophils 1 % (0-3) 01/02/21 14:56 Absolute Eosinophils 0.1 K/uL (0-0.5) 01/02/21 14:56 Absolute Basophils 0.1 K/uL (0-0.5) 01/02/21 14:56 Platelet Estimate Adeq 01/02/21 14:56 Morphology Comment Not seen (NOT SEEN) 01/02/21 14:56 PT 13.0 SECONDS (9.5-12.5) H 01/02/21 14:56 INR 1.13 01/02/21 14:56 APTT 30.0 SECONDS (24.3-36.9) 01/02/21 14:56 Sodium 162 mmol/L (136-145) H* 01/02/21 14:56 Potassium 3.9 mmol/L (3.5-5.1) 01/02/21 14:56 Chloride 129 mmol/L (98-107) H* 01/02/21 14:56 Carbon Dioxide 24 mmol/L (21-32) 01/02/21 14:56 BUN 97 mg/dL (7-18) H 01/02/21 14:56 Creatinine 3.77 mg/dL (0.55-1.3) H 01/02/21 14:56 Estimated GFR 16 mL/min (=/>90) L 01/02/21 14:56 Glucose 181 mg/dL (74-106) H 01/02/21 14:56 POC Glucose 164 mg/dL (65-120) H 01/02/21 15:14 Lactic Acid 1.4 mmol/L (0.4-2.0) 01/02/21 14:56 Calcium 9.1 mg/dL (8.5-10.1) 01/02/21 14:56 Total Bilirubin 0.4 mg/dL (0.2-1.0) 01/02/21 14:56 Direct Bilirubin 0.1 mg/dL (0-0.2) 01/02/21 14:56 AST 35 U/L (15-37) 01/02/21 14:56 ALT 17 U/L (12-78) 01/02/21 14:56 Alkaline Phosphatase 79 U/L (45-117) 01/02/21 14:56 Creatine Kinase 682 U/L (39-308) H 01/02/21 14:56 Rapid Troponin I 0.04 ng/mL (0.0-0.045) 01/02/21 14:56 Serum Total Protein 7.5 g/dL (6.4-8.2) 01/02/21 14:56 Albumin 2.4 g/dL (3.4-5.0) L 01/02/21 14:56 Globulin 5.1 g/dL (2.3-3.5) H 01/02/21 14:56 Albumin/Globulin Ratio 0.5 (1.1-1.8) L 01/02/21 14:56 Procalcitonin 0.30 ng/mL (<0.050) H 01/02/21 14:56 Urine pH 5.0 (5.0-7.0) 01/02/21 17:15 Ur Specific [place] 1.020 (1.005-1.030) 01/02/21 17:15 Glucose (UA)(Auto) Negative (NEG) 01/02/21 17:15 Urine Ketones Negative (NEG) 01/02/21 17:15 Urine Blood Negative (NEG) 01/02/21 17:15 Urine Nitrite Negative (NEG) 01/02/21 17:15 Ur Leukocyte Esterase Negative (NEG) 01/02/21 17:15 Urine RBC <5 /HPF (NONE SEEN) 01/02/21 16:30 Urine WBC <5 /HPF (<5) 01/02/21 16:30 Ur Squamous Epith Cells <5 /HPF (NONE SEEN) 01/02/21 16:30 Amorphous Sediment 3+ /HPF (NONE SEEN) H 01/02/21 16:30 Urine Bacteria <20 /HPF (NONE SEEN) 01/02/21 16:30 Urine Mucus 1+ /HPF (NONE SEEN) 01/02/21 16:30 Urine Culture Reflexed Not needed 01/02/21 16:30 Urine Total Protein Negative (NEG) 01/02/21 17:15 SARS-CoV-2 RNA (RT-PCR) Negative (NEGATIVE) 01/02/21 14:35 Assessment And Plan - Plan Assessment -severe sepsis -fungemia and UTI -aspiration pneumonia -anemia -sacrococcyx stage 3 healing wound plan: -sepsis: continue to monitor vitals. Vitals stable, leukocytosis resolved. -fungemia and fungal UTI: continue fluconazole. Plan for repeat blood culture and UA this week. -pneumonia: continue meropenum -sacrococcyx ulcer: apply barrier cream and cover with foam -medical management per primary team -continue to monitor CBC and BMP -monitor for signs of infection Plan of care discussed with Dr. Salmeron. Thank you for consultation. Physician Review: Patient Assessed, Agree with Above Assessment and Plan
[2021-01-10] MEDS: Meropenem 500 MG in NA CHLORIDE 0.9% 100 ML IV SCH ×2 (10:48→22:56)
[2021-01-10] MEDS: D5W 1,000 ML IV SCH (14:45)
--- NOTE | 2021-01-10 14:57 | P.PN ---
Subjective Date of Service: 01/10/21 Chief Complaint: Severe sepsis No major issues overnight. Patient is awake, not in distress. He is tolerating pureed diet. Physical Examination - Vital Signs Temperature: 97.8 F Blood Pressure: 109/57 Pulse: 67 Respirations: 18 Pulse Ox (%): 96 - Physical Exam General: In no apparent distress, Other (Awake) Neck: Supple, JVD not distended Respiratory: Diminished, Crackles/rales (Bibasilar) Cardiovascular: Regular rate/rhythm, Normal S1 S2 Gastrointestinal: Soft and benign, Non-distended Musculoskeletal: No swelling, No tenderness Integumentary: Other (Stage III sacral decubitus ulcer.) Assessment And Plan - Plan Severe sepsis secondary to suspected aspiration pneumonia-[facility] Acute renal failure Dysphagia secondary to previous stroke Hypernatremia, hyperchloremia Hypertension Coffee ground gastric content Severe sepsis secondary to suspected aspiration pneumonia-on ertapenum at [facility]: Blood cultures obtained in the ED, gram stain positive, likely contaminant. Blood cultures not growing yeast. Patient started on IV Diflucan. contine meropenem & vanc for now, ID is following. PICC line has was placed ~2 weeks prior to admission. was febrile and lethargic on 01/08. CT chest showed worsening pneumonia speech therapy consulted - recommended NPO. dobhoff placed, Jevity 1.2 ordered, however patient pulled overnight. ST re-evaluated patient. He is not tolerating pureed diet. may still need PEG - to be able to maintain hydration. Dr. Calles consulted for PEG tube placement. Acute renal failure: Hypernatremia, hyperchloremia: Nephrology is following, serum creatinine is improving with IVF Continue IV fluid. Dysphagia secondary to previous stroke: Patient not tolerating diet. CT head shows subacute infarct family states patient had stroke ~2 months prior to this admission, and believe he had one 1-2 weeks prior to admission as well neurology to see patient.- recommended repeat MRI - confirmed subacute stroke Hypertension: Continue antihypertensives. Coffee ground gastric content noted on 01/05, hgb downtrending, possibly multifactorial, Patient has received >10-11 L IV fluid. Rectal exam performed on 01/06 and negative Hemoccult. Denies any history of GI bleed, CHRISTOPHER reports no knowledge of prior anemia, but she is unsure Possibly from irritation of dobhoff, patient pulled twice Dr. Kovacev consulted - possible EGD, possibly at time of PEG placement if needed. Hemoglobin dropped to 6.5 today. 1 unit PRBC transfusion ordered. Physician Review: Patient Assessed, Agree with Above Assessment and Plan Physician Review Additional Text: ERASMO- likely due to pre-renal with component of Hypotension induced ATN Hypernatremia-resolved. CVA with Dysphagia HTN Met Encephalopathy Sepsis with RUL Pneumonia r/o UGI bleed Anemia PLAN -hemoglobin trending down , consider PRBC today follow repeat creatinine -prior creatinine improving to 1.82 -serum sodium improved ,can switch to NS now -s/p removed feeding tube
[2021-01-10 15:42] LABS: Potassium 4.1 mmol/L (3.5-5.1)
[2021-01-10] MEDS: FLUCONAZOLE 200mg IVPB 200 MG/100 ML BAG IV SCH (17:00)
[2021-01-10] MEDS ORDERED: VANCOMYCIN/NS 1 gm 1 GM/250 ML BAG IVPB SCH (18:00)
[2021-01-10 18:18] LABS: Hematocrit 23.9 % (39.6-49.0)
[2021-01-10] MEDS: MIRTAZAPINE 15 MG TAB PO SCH (22:52)
[2021-01-10] MEDS: TERAZOSIN HCL 1 MG CAP PO SCH (22:52)
[2021-01-11 05:48] LABS: Absolute Lymphocytes (CBC) 1.1 K/uL (0.7-4.9); Basophils % 0.4 % (0-1.3); Hematocrit 21.2 % (39.6-49.0); Lymphocytes % 12.7 % (15.3-44.8); MPV 9.4 fL (7.6-11.3); RBC Red Blood Cell Count 2.56 M/uL (4.33-5.43)
[2021-01-11 07:14] LABS: Blood Morphology Comment NOTED (NOT SEEN); Ovalocytes 1+; Platelet Estimate ADEQ; White Blood Cell Scan OK (OK)
[2021-01-11] MEDS: D5W 1,000 ML IV SCH ×2 (07:27→09:35)
[2021-01-11] MEDS: HEPARIN/D5W 25,000 UNIT/500 ML BAG IV PRN (07:30)
[2021-01-11] MEDS: THIAMINE HCL 100 MG TABLET PO SCH (09:00)
[2021-01-11] MEDS: SENOSIDES 8.6 MG TAB PO SCH (09:00)
[2021-01-11] MEDS: HYDRALAZINE HCL 25 MG TABLET PO SCH ×3 (09:00→20:47)
[2021-01-11] MEDS: carvediloL 12.5 MG TAB PO SCH ×2 (09:00→20:48)
[2021-01-11] MEDS: RISPERIDONE 1 MG TABLET PO SCH ×2 (09:00→20:47)
[2021-01-11] MEDS: cloNIDine HCL 0.1 MG TAB PO SCH ×2 (09:00→20:48)
[2021-01-11] MEDS: FOLIC ACID 1 MG TABLET PO SCH (09:00)
[2021-01-11] MEDS: PANTOPRAZOLE 40 MG INJ IVP SCH ×2 (09:00→20:47)
--- NOTE | 2021-01-11 09:18 | P.PN ---
Date of Service: 01/11/21 Dysphagia, malnutrition, aspiration pneumonia Patient started on PO diet - continues to have medical issues - If patient does not meet nurtitional goals, or cannot tolerate PO safely, and is medically cleared, will be available for PEG tube - please call back if patient needs surgical intervention
--- NOTE | 2021-01-11 09:38 | P.PN ---
Subjective Date of Service: 01/11/21 Chief Complaint: Severe sepsis Subjective: No new changes Physical Examination - Vital Signs Temperature: 97.8 F Blood Pressure: 161/78 Pulse: 52 Respirations: 16 Pulse Ox (%): 98 - Physical Exam General: Alert, Cachectic HEENT: Atraumatic, Normocephalic Neck: Supple Respiratory: Clear to auscultation bilaterally Cardiovascular: No edema Gastrointestinal: Soft and benign Neurological: Cranial nerves 3-12 intact Assessment And Plan - Plan ERASMO- likely due to pre-renal with component of Hypotension induced ATN Hypernatremia-resolved. CVA with Dysphagia HTN Met Encephalopathy Sepsis with RUL Pneumonia hypocalcemia Plan: His sodium is now owat 130. we will hold desmopressin dose and reduce IV fluid of D5W to 30ml/hr. His creatinine is better today at 1.40. we will continue to avoid nephrotoxins. Loc calcium noted at 7.4. we will start calcium supplements. Physician Review: Patient Assessed, Agree with Above Assessment and Plan Physician Review Additional Text: ERASMO- likely due to pre-renal with component of Hypotension induced ATN Hypernatremia-resolved. CVA with Dysphagia HTN Met Encephalopathy Sepsis with RUL Pneumonia r/o UGI bleed Anemia PLAN -hemoglobin trending down , consider PRBC today follow repeat creatinine -prior creatinine improving to 1.82 -serum sodium improved ,can switch to NS now -s/p removed feeding tube
--- NOTE | 2021-01-11 10:12 | P.PN ---
Subjective Date of Service: 01/11/21 Chief Complaint: Severe sepsis Patient seen and examined at bedside, no acute complaints. patient refused examination of sacrococcyx wound. Review of Systems 10-point ROS is otherwise unremarkable Physical Examination - Vital Signs Temperature: 97.8 F Blood Pressure: 161/78 Pulse: 52 Respirations: 16 Pulse Ox (%): 98 - Physical Exam General: Alert, In no apparent distress HEENT: Atraumatic, Normocephalic, PERRLA Neck: Supple, 2+ carotid pulse no bruit, JVD not distended Respiratory: Clear to auscultation bilaterally, Normal air movement Cardiovascular: No edema, Normal pulses Capillary refill: <2 Seconds Gastrointestinal: Normal bowel sounds, Non-distended Musculoskeletal: No clubbing, No swelling, No contractures Integumentary: Other (sacroccyx healing stage 3 pressure ulcer ) Lymphatics: No axilla or inguinal lymphadenopathy Assessment And Plan - Plan Assessment -severe sepsis -fungemia and UTI -aspiration pneumonia -anemia -sacrococcyx stage 3 healing wound plan: -sepsis: continue to monitor vitals. Vitals stable, leukocytosis resolved. -fungemia and fungal UTI: continue fluconazole. Plan for repeat blood culture and UA on 01/16. -pneumonia: continue meropenum -sacrococcyx ulcer: apply barrier cream and cover with foam -medical management per primary team -continue to monitor CBC and BMP -monitor for signs of infection Plan of care discussed with Dr. Salmeron. Thank you for consultation. Physician Review: Patient Assessed, Agree with Above Assessment and Plan
[2021-01-11] MEDS: Meropenem 500 MG in NA CHLORIDE 0.9% 100 ML IV SCH ×2 (11:03→20:57)
--- NOTE | 2021-01-11 13:35 | P.PN ---
Subjective Date of Service: 01/11/21 Chief Complaint: Severe sepsis Subjective: No new changes Review of Systems 10-point ROS is otherwise unremarkable Physical Examination - Vital Signs Temperature: 97.8 F Blood Pressure: 161/78 Pulse: 52 Respirations: 16 Pulse Ox (%): 98 - Physical Exam General: Alert, In no apparent distress HEENT: Atraumatic, Normocephalic Neck: Supple Respiratory: Clear to auscultation bilaterally Cardiovascular: Regular rate/rhythm, Normal S1 S2 Capillary refill: <2 Seconds Gastrointestinal: Soft and benign, W/out hepatosplenomegaly Musculoskeletal: No clubbing, No swelling Integumentary: Erythema, Pressure ulcer Neurological: Other (Alert, Awake) Lymphatics: No axilla or inguinal lymphadenopathy Assessment & Plan Physician Review: Patient Assessed, Agree with Above Assessment and Plan Physician Review Additional Text: Severe sepsis secondary to suspected aspiration pneumonia-on irtapenum at [facility] Acute renal failure Dysphagia secondary to previous stroke Hypernatremia, hyperchloremia Hypertension Coffee ground gastric content Severe sepsis secondary to suspected aspiration pneumonia-on ertapenum at [facility]: Blood cultures obtained in the ED, gram stain positive, likely contaminant. Blood cultures not growing yeast. Patient started on IV Diflucan. contine meropenem & vanc for now, ID is following. PICC line has was placed ~2 weeks prior to admission. was febrile and lethargic on 01/08. CT chest showed worsening pneumonia speech therapy consulted - recommended NPO. dobhoff placed, Jevity 1.2 ordered, however patient pulled overnight. ST re-evaluated patient. He is not tolerating pureed diet. may still need PEG - to be able to maintain hydration. Dr. Calles consulted for PEG tube placement. Acute renal failure: Hypernatremia, hyperchloremia: Nephrology is following, serum creatinine is improving with IVF Continue IV fluid. Dysphagia secondary to previous stroke: CT head shows subacute infarct family states patient had stroke ~2 months prior to this admission, and believe he had one 1-2 weeks prior to admission as well neurology to see patient.- recommended repeat MRI - confirmed subacute stroke Hypertension: Continue antihypertensives. Coffee ground gastric content noted on 01/05, hgb downtrending, possibly multifactorial, Patient has received >10-11 L IV fluid. Rectal exam performed on 01/06 and negative Hemoccult. Denies any history of GI bleed, CHRISTOPHER reports no knowledge of prior anemia, but she is unsure Possibly from irritation of dobhoff, patient pulled twice Dr. Calles consulted - possible EGD, possibly at time of PEG placement if needed. Hemoglobin dropped to 6.5 today. 1 unit PRBC transfusion ordered. Physician Review: Patient Assessed, Agree with Above Assessment and Plan Physician Review Additional Text: 01/11/2021 ERASMO- likely due to pre-renal with component of Hypotension induced ATN Hypernatremia-resolved. CVA with Dysphagia HTN Metabolic Encephalopathy Sepsis with RUL Pneumonia r/o UGI bleed Anemia Hemoglobin is still low at 7 Will transfuse 1 units PRBC Will monitor H&H and transfuse p.r.n. CBC monitored in a.m. Renal parameters monitored Appreciate help from nephrology Appreciate help from wound care Patient is tolerating diet slightly Will get a speech eval Ssurgery was consultedFor possible PEG tube Will hold back on the PEG tube still speech is consulted Awaiting further recovery Time Spent Managing Pts Care (In Minutes): 42
[2021-01-11 15:23] LABS: Hematocrit 23.9 % (39.6-49.0)
[2021-01-11] MEDS: FLUCONAZOLE 200mg IVPB 200 MG/100 ML BAG IV SCH (17:09)
[2021-01-11] MEDS: TERAZOSIN HCL 1 MG CAP PO SCH (20:47)
[2021-01-11] MEDS: MIRTAZAPINE 15 MG TAB PO SCH (20:47)
[2021-01-12] MEDS ORDERED: HYDRALAZINE HCL 20 MG/ML VIAL IV ONE (04:43)
[2021-01-12 04:51] LABS: MPV 9.7 fL (7.6-11.3)
[2021-01-12 04:54] LABS: Platelet Estimate ND
[2021-01-12] MEDS: RISPERIDONE 1 MG TABLET PO SCH ×2 (09:00→21:03)
[2021-01-12] MEDS: FOLIC ACID 1 MG TABLET PO SCH (09:00)
[2021-01-12] MEDS: Meropenem 500 MG in NA CHLORIDE 0.9% 100 ML IV SCH ×2 (09:00→21:06)
[2021-01-12] MEDS: HYDRALAZINE HCL 25 MG TABLET PO SCH ×3 (09:59→21:03)
[2021-01-12] MEDS: carvediloL 12.5 MG TAB PO SCH ×2 (10:00→21:00)
[2021-01-12] MEDS: cloNIDine HCL 0.1 MG TAB PO SCH ×2 (10:00→21:09)
[2021-01-12] MEDS: THIAMINE HCL 100 MG TABLET PO SCH (10:01)
[2021-01-12] MEDS: SENOSIDES 8.6 MG TAB PO SCH (10:02)
[2021-01-12] MEDS: PANTOPRAZOLE 40 MG INJ IVP SCH ×2 (10:03→21:03)
[2021-01-12 10:30] LABS: MPV 9.2 fL (7.6-11.3); RBC Red Blood Cell Count 3.39 M/uL (4.33-5.43)
--- NOTE | 2021-01-12 10:57 | P.PN ---
Subjective Date of Service: 01/12/21 Chief Complaint: Severe sepsis Subjective: No new changes, Improving Physical Examination - Vital Signs Temperature: 98.2 F Blood Pressure: 175/83 Pulse: 73 Respirations: 20 Pulse Ox (%): 94 - Physical Exam General: Alert, Oriented x3 HEENT: Atraumatic, Normocephalic Neck: Supple Respiratory: Clear to auscultation bilaterally Cardiovascular: No edema Gastrointestinal: Soft and benign Neurological: Normal speech, Sensation intact, Cranial nerves 3-12 intact Assessment And Plan - Plan ERASMO- likely due to pre-renal with component of Hypotension induced ATN Hypernatremia-resolved. CVA with Dysphagia HTN Met Encephalopathy Sepsis with RUL Pneumonia hypocalcemia Plan: His sodium was 130 yesterday. awaiting labs today. we will continue to hold desmopressin dose and continue IV fluid of D5W at 30ml/hr. His creatinine is 1.40 on last check. we will continue to avoid nephrotoxins. Loc calcium noted at 7.4. we will continue calcium supplements. Physician Review: Patient Assessed, Agree with Above Assessment and Plan Physician Review Additional Text: Severe sepsis secondary to suspected aspiration pneumonia-[facility]enum at [facility] Acute renal failure Dysphagia secondary to previous stroke Hypernatremia, hyperchloremia Hypertension Coffee ground gastric content Severe sepsis secondary to suspected aspiration pneumonia-on [facility]apenum at [facility]: Blood cultures obtained in the ED, gram stain positive, likely contaminant. Blood cultures not growing yeast. Patient started on IV Diflucan. contine meropenem & vanc for now, ID is following. PICC line has was placed ~2 weeks prior to admission. was febrile and lethargic on 01/08. CT chest showed worsening pneumonia speech therapy consulted - recommended NPO. dobhoff placed, Jevity 1.2 ordered , however patient pulled overnight. ST re-evaluated patient. He is not tolerating pureed diet. may still need PEG - to be able to maintain hydration. Dr. Calles consulted for PEG tube placement. Acute renal failure: Hypernatremia, hyperchloremia: Nephrology is following, serum creatinine is improving with IVF Continue IV fluid. Dysphagia secondary to previous stroke: CT head shows subacute infarct family states patient had stroke ~2 months prior to this admission, and believe he had one 1-2 weeks prior to admission as well neurology to see patient.- recommended repeat MRI - confirmed subacute stroke Hypertension: Continue antihypertensives. Coffee ground gastric content noted on 01/05, hgb downtrending, possibly multifactorial, Patient has received >10-11 L IV fluid. Rectal exam performed on 01/06 and negative Hemoccult. Denies any history of GI bleed, CHRISTOPHER reports no knowledge of prior anemia, but she is unsure Possibly from irritation of dobhoff, patient pulled twice Dr. Calles consulted - possible EGD, possibly at time of PEG placement if needed. Hemoglobin dropped to 6.5 today. 1 unit PRBC transfusion ordered. Physician Review: Patient Assessed, Agree with Above Assessment and Plan Physician Review Additional Text: 01/11/2021 ERASMO- likely due to pre-renal with component of Hypotension induced ATN Hypernatremia-resolved. CVA with Dysphagia HTN Metabolic Encephalopathy Sepsis with RUL Pneumonia r/o UGI bleed Anemia Hemoglobin is still low at 7 Will transfuse 1 units PRBC Will monitor H&H and transfuse p.r.n. CBC monitored in a.m. Renal parameters monitored Appreciate help from nephrology Appreciate help from wound care Patient is tolerating diet slightly Will get a speech eval Ssurgery was consultedFor possible PEG tube Will hold back on the PEG tube still speech is consulted Awaiting further recovery
[2021-01-12] MEDS ORDERED: AMLODIPINE 10 MG TAB PO ONE (13:36)
--- NOTE | 2021-01-12 13:55 | P.PN ---
Subjective Date of Service: 01/12/21 Chief Complaint: Severe sepsis No major issues overnight. Patient doing much better today. He is quite interactive today. He is tolerating pureed diet. Physical Examination - Vital Signs Temperature: 97.5 F Blood Pressure: 145/68 Pulse: 73 Respirations: 20 Pulse Ox (%): 95 - Physical Exam General: In no apparent distress, Other (Awake) HEENT: Mucous membr. moist/pink Neck: Supple, JVD not distended Respiratory: Clear to auscultation bilaterally, Normal air movement Cardiovascular: Regular rate/rhythm, Normal S1 S2 Gastrointestinal: Normal bowel sounds, Soft and benign, Non-distended, No tenderness Musculoskeletal: No swelling, No tenderness Integumentary: No rashes Neurological: Abnormal speech (Slurred) Assessment And Plan - Plan Severe sepsis secondary to suspected aspiration pneumonia-on irtapenum at [facility] Acute renal failure Dysphagia secondary to previous stroke Hypernatremia, hyperchloremia Hypertension Coffee ground gastric content Severe sepsis secondary to suspected aspiration pneumonia-on ertapenum at [facility]: Blood cultures obtained in the ED, gram stain positive, likely contaminant. Blood cultures now growing yeast. Urine culture: Yeast. Patient started on IV Diflucan. Repeat blood culture today. contine meropenem and Diflucan. ID is following. PICC line has was placed ~2 weeks prior to admission. speech therapy consulted - recommended NPO. dobhoff placed, Jevity 1.2 ordered, however patient pulled overnight. ST re-evaluated patient. He is now tolerating pureed diet and nectar thickened liquids. Nursing staff report patient now finishes more than 50% of his meals. Discussed with ID. Patient will be discharged with IV meropenem and Diflucan. He will need at least 2 weeks of IV Diflucan. Acute renal failure: Hypernatremia, hyperchloremia: Nephrology is following, serum creatinine is improving with IVF-D5W at 30 mL/hour. Continue IV fluid. Dysphagia secondary to previous stroke: Patient now tolerating pureed diet. CT head shows subacute infarct family states patient had stroke ~2 months prior to this admission, and believe he had one 1-2 weeks prior to admission as well MRI of the brain recommended by neurology - confirmed subacute stroke Hypertension: Continue antihypertensives. Resumed home dose nifedipine for better blood pressure control. Coffee ground gastric content noted on 2/18, hgb downtrending, possibly multifactorial, Patient has received >10-11 L IV fluid. Rectal exam performed on 01/06 and negative Hemoccult. Denies any history of GI bleed, CHRISTOPHER reports no knowledge of prior anemia, but she is unsure Possibly from irritation of dobhoff, patient pulled twice Hemoglobin dropped to 6.5. Status post 2 units PRBC transfusion. Posttransfusion hemoglobin is up to 9.5.
[2021-01-12] MEDS: D5W 1,000 ML IV SCH (15:51)
[2021-01-12] MEDS: AMLODIPINE 10 MG TAB PO SCH (15:54)
[2021-01-12] MEDS: FLUCONAZOLE 200mg IVPB 200 MG/100 ML BAG IV SCH (17:42)
[2021-01-12] MEDS: JUVEN PACKET PO SCH (21:00)
[2021-01-12] MEDS: ENSURE ENLIVE 237 ML CAN PO SCH (21:00)
[2021-01-12] MEDS: MIRTAZAPINE 15 MG TAB PO SCH (21:03)
[2021-01-12] MEDS: TERAZOSIN HCL 1 MG CAP PO SCH (21:03)
[2021-01-13] MEDS: HEPARIN/D5W 25,000 UNIT/500 ML BAG IV PRN (04:31)
[2021-01-13] MEDS: PANTOPRAZOLE 40 MG INJ IVP SCH ×2 (08:22→21:36)
[2021-01-13] MEDS: FOLIC ACID 1 MG TABLET PO SCH (08:23)
[2021-01-13] MEDS: SENOSIDES 8.6 MG TAB PO SCH (08:23)
[2021-01-13] MEDS: HYDRALAZINE HCL 25 MG TABLET PO SCH ×3 (08:23→21:00)
[2021-01-13] MEDS: carvediloL 12.5 MG TAB PO SCH ×2 (08:23→21:00)
[2021-01-13] MEDS: NIFEDIPINE XL 60 MG TABLET PO SCH (08:23)
[2021-01-13] MEDS: RISPERIDONE 1 MG TABLET PO SCH ×2 (08:24→21:37)
[2021-01-13] MEDS: THIAMINE HCL 100 MG TABLET PO SCH (08:24)
[2021-01-13] MEDS: cloNIDine HCL 0.1 MG TAB PO SCH ×2 (08:24→21:00)
[2021-01-13] MEDS: ENSURE ENLIVE 237 ML CAN PO SCH ×2 (08:25→21:00)
[2021-01-13] MEDS: Meropenem 500 MG in NA CHLORIDE 0.9% 100 ML IV SCH ×2 (08:25→21:34)
[2021-01-13] MEDS: JUVEN PACKET PO SCH ×2 (09:00→21:00)
--- NOTE | 2021-01-13 10:43 | P.PN ---
Subjective Date of Service: 01/13/21 Chief Complaint: Severe sepsis Patient seen and examined at bedside, no acute complaints. Sacral coccyx wound patient remains afebrile with a T-max of 98.7 with normal vital signs, however he does have hypertension and his most recent blood pressure of 162/77. examined today, no acute changes. Review of Systems 10-point ROS is otherwise unremarkable Physical Examination - Vital Signs Temperature: 97.4 F Blood Pressure: 162/77 Pulse: 58 Respirations: 16 Pulse Ox (%): 95 - Physical Exam Other Physical/Emotional Findings: General: Alert, In no apparent distress. HEENT: Atraumatic, Normocephalic, PERRLA. Neck: Supple, 2+ carotid pulse no bruit, JVD not distended. Respiratory: Clear to auscultation bilaterally, Normal air movement. Cardiovascular: No edema, Normal pulses. Capillary refill: <2 Seconds. Gastrointestinal: Normal bowel sounds, Non-distended. Musculoskeletal: No clubbing, No swelling, No contractures. Integumentary: Other (sacroccyx healing stage 3 pressure ulcer ). Lymphatics: No axilla or inguinal lymphadenopathy - Studies Laboratory Last Values WBC 23.50 K/uL (4.3-10.9) H* 01/02/21 14:56 RBC 3.91 M/uL (4.33-5.43) L 01/02/21 14:56 Hgb 11.3 g/dL (13.6-17.9) L 01/02/21 14:56 Hct 35.0 % (39.6-49.0) L 01/02/21 14:56 MCV 89.3 fL (80-100) 01/02/21 14:56 MCH 28.8 pg (27.0-35.0) 01/02/21 14:56 MCHC 32.2 g/dL (32.0-36.0) 01/02/21 14:56 RDW 15.2 % (12.1-15.2) 01/02/21 14:56 Plt Count 336 K/uL (152-406) 01/02/21 14:56 MPV 10.6 fL (7.6-11.3) 01/02/21 14:56 Neutrophils % 91.7 % (41.7-73.7) H 01/02/21 14:56 Lymphocytes % 3.7 % (15.3-44.8) L 01/02/21 14:56 Monocytes % 3.7 % (3.3-12.3) 01/02/21 14:56 Eosinophils % 0.6 % (0-4.4) 01/02/21 14:56 Basophils % 0.3 % (0-1.3) 01/02/21 14:56 Absolute Neutrophils 21.5 K/uL (1.8-8.0) H 01/02/21 14:56 Segmented Neutrophils 85 % (40-80) H 01/02/21 14:56 Band Neutrophils 2 % (0-1) H 01/02/21 14:56 Absolute Lymphocytes 0.9 K/uL (0.7-4.9) 01/02/21 14:56 Lymphocytes 7 % (15-42) L 01/02/21 14:56 Monocytes 5 % (0-10) 01/02/21 14:56 Absolute Monocytes 0.9 K/uL (0.1-1.3) 01/02/21 14:56 Eosinophils 1 % (0-3) 01/02/21 14:56 Absolute Eosinophils 0.1 K/uL (0-0.5) 01/02/21 14:56 Absolute Basophils 0.1 K/uL (0-0.5) 01/02/21 14:56 Platelet Estimate Adeq 01/02/21 14:56 Morphology Comment Not seen (NOT SEEN) 01/02/21 14:56 PT 13.0 SECONDS (9.5-12.5) H 01/02/21 14:56 INR 1.13 01/02/21 14:56 APTT 30.0 SECONDS (24.3-36.9) 01/02/21 14:56 Sodium 162 mmol/L (136-145) H* 01/02/21 14:56 Potassium 3.9 mmol/L (3.5-5.1) 01/02/21 14:56 Chloride 129 mmol/L (98-107) H* 01/02/21 14:56 Carbon Dioxide 24 mmol/L (21-32) 01/02/21 14:56 BUN 97 mg/dL (7-18) H 01/02/21 14:56 Creatinine 3.77 mg/dL (0.55-1.3) H 01/02/21 14:56 Estimated GFR 16 mL/min (=/>90) L 01/02/21 14:56 Glucose 181 mg/dL (74-106) H 01/02/21 14:56 POC Glucose 164 mg/dL (65-120) H 01/02/21 15:14 Lactic Acid 1.4 mmol/L (0.4-2.0) 01/02/21 14:56 Calcium 9.1 mg/dL (8.5-10.1) 01/02/21 14:56 Total Bilirubin 0.4 mg/dL (0.2-1.0) 01/02/21 14:56 Direct Bilirubin 0.1 mg/dL (0-0.2) 01/02/21 14:56 AST 35 U/L (15-37) 01/02/21 14:56 ALT 17 U/L (12-78) 01/02/21 14:56 Alkaline Phosphatase 79 U/L (45-117) 01/02/21 14:56 Creatine Kinase 682 U/L (39-308) H 01/02/21 14:56 Rapid Troponin I 0.04 ng/mL (0.0-0.045) 01/02/21 14:56 Serum Total Protein 7.5 g/dL (6.4-8.2) 01/02/21 14:56 Albumin 2.4 g/dL (3.4-5.0) L 01/02/21 14:56 Globulin 5.1 g/dL (2.3-3.5) H 01/02/21 14:56 Albumin/Globulin Ratio 0.5 (1.1-1.8) L 01/02/21 14:56 Procalcitonin 0.30 ng/mL (<0.050) H 01/02/21 14:56 Urine pH 5.0 (5.0-7.0) 01/02/21 17:15 Ur Specific [place] 1.020 (1.005-1.030) 01/02/21 17:15 Glucose (UA)(Auto) Negative (NEG) 01/02/21 17:15 Urine Ketones Negative (NEG) 01/02/21 17:15 Urine Blood Negative (NEG) 01/02/21 17:15 Urine Nitrite Negative (NEG) 01/02/21 17:15 Ur Leukocyte Esterase Negative (NEG) 01/02/21 17:15 Urine RBC <5 /HPF (NONE SEEN) 01/02/21 16:30 Urine WBC <5 /HPF (<5) 01/02/21 16:30 Ur Squamous Epith Cells <5 /HPF (NONE SEEN) 01/02/21 16:30 Amorphous Sediment 3+ /HPF (NONE SEEN) H 01/02/21 16:30 Urine Bacteria <20 /HPF (NONE SEEN) 01/02/21 16:30 Urine Mucus 1+ /HPF (NONE SEEN) 01/02/21 16:30 Urine Culture Reflexed Not needed 01/02/21 16:30 Urine Total Protein Negative (NEG) 01/02/21 17:15 SARS-CoV-2 RNA (RT-PCR) Negative (NEGATIVE) 01/02/21 14:35 Assessment And Plan - Plan Assessment -severe sepsis -fungemia and UTI -aspiration pneumonia -anemia -sacrococcyx stage 3 healing wound plan: -sepsis: continue to monitor vitals. Vitals stable, leukocytosis resolved. -fungemia and fungal UTI: continue fluconazole. Repeat UA and Blood cultures pending. -pneumonia: continue meropenum. Patient's creatinine is 1.39 with a GFR 51, has estimated creatinine clearance based on his age and weight is 44.87-continue renal dose of meropenem. Creatinine is down trending. -sacrococcyx ulcer: apply barrier cream and cover with foam -medical management per primary team -continue to monitor CBC and BMP -monitor for signs of infection Plan of care discussed with Dr. Salmeron. Thank you for consultation. Physician Review: Patient Assessed, Agree with Above Assessment and Plan
--- NOTE | 2021-01-13 14:25 | P.PN ---
Subjective Date of Service: 01/13/21 Chief Complaint: Severe sepsis Subjective: No new changes, Improving Physical Examination - Vital Signs Temperature: 97.7 F Blood Pressure: 91/50 Pulse: 56 Respirations: 16 Pulse Ox (%): 93 - Physical Exam General: Oriented x3 HEENT: Atraumatic, Normocephalic Neck: Supple Respiratory: Clear to auscultation bilaterally Cardiovascular: Regular rate/rhythm, Normal S1 S2 Gastrointestinal: Soft and benign Neurological: Normal speech, Cranial nerves 3-12 intact Other Physical/Emotional Findings: General: Alert, In no apparent distress. HEENT: Atraumatic, Normocephalic, PERRLA. Neck: Supple, 2+ carotid pulse no bruit, JVD not distended. Respiratory: Clear to auscultation bilaterally, Normal air movement. Cardiovascular: No edema, Normal pulses. Capillary refill: <2 Seconds. Gastrointestinal: Normal bowel sounds, Non-distended. Musculoskeletal: No clubbing, No swelling, No contractures. Integumentary: Other (sacroccyx healing stage 3 pressure ulcer ). Lymphatics: No axilla or inguinal lymphadenopathy Assessment And Plan - Plan ERASMO- likely due to pre-renal with component of Hypotension induced ATN Hypernatremia-resolved. CVA with Dysphagia HTN Met Encephalopathy Sepsis with RUL Pneumonia hypocalcemia Plan: His sodium was 129 yesterday.. we discontinued desmopressin dose. His creatinine is 1.39 on last check. we will repeat labs in am. we will continue to avoid nephrotoxins. Low calcium noted at 7.4. we will continue calcium supplements. Physician Review: Patient Assessed, Agree with Above Assessment and Plan Physician Review Additional Text: Severe sepsis secondary to suspected aspiration pneumonia-on irtapenum at long term Acute renal failure Dysphagia secondary to previous stroke Hypernatremia, hyperchloremia Hypertension Coffee ground gastric content Severe sepsis secondary to suspected aspiration pneumonia-on ertapenum at long term: Blood cultures obtained in the ED, gram stain positive, likely contaminant. Blood cultures not growing yeast. Patient started on IV Diflucan. contine meropenem & vanc for now, ID is following. PICC line has was placed ~2 weeks prior to admission. was febrile and lethargic on 01/08. CT chest showed worsening pneumonia speech therapy consulted - recommended NPO. dobhoff placed, Jevity 1.2 ordered, however patient pulled overnight. ST re-evaluated patient. He is not tolerating pureed diet. may still need PEG - to be able to maintain hydration. Dr. Calles consulted for PEG tube placement. Acute renal failure: Hypernatremia, hyperchloremia: Nephrology is following, serum creatinine is improving with IVF Continue IV fluid. Dysphagia secondary to previous stroke: CT head shows subacute infarct family states patient had stroke ~2 months prior to this admission, and believe he had one 1-2 weeks prior to admission as well neurology to see patient.- recommended repeat MRI - confirmed subacute stroke Hypertension: Continue antihypertensives. Coffee ground gastric content noted on 01/05, hgb downtrending, possibly multifactorial, Patient has received >10-11 L IV fluid. Rectal exam performed on 01/06 and negative Hemoccult. Denies any history of GI bleed, CHRISTOPHER reports no knowledge of prior anemia, but she is unsure Possibly from irritation of dobhoff, patient pulled twice Dr. Calles consulted - possible EGD, possibly at time of PEG placement if needed. Hemoglobin dropped to 6.5 today. 1 unit PRBC transfusion ordered. Physician Review: Patient Assessed, Agree with Above Assessment and Plan Physician Review Additional Text: 01/11/2021 ERASMO- likely due to pre-renal with component of Hypotension induced ATN Hypernatremia-resolved. CVA with Dysphagia HTN Metabolic Encephalopathy Sepsis with RUL Pneumonia r/o UGI bleed Anemia Hemoglobin is still low at 7 Will transfuse 1 units PRBC Will monitor H&H and transfuse p.r.n. CBC monitored in a.m. Renal parameters monitored Appreciate help from nephrology Appreciate help from wound care Patient is tolerating diet slightly Will get a speech eval Ssurgery was consultedFor possible PEG tube Will hold back on the PEG tube still speech is consulted Awaiting further recovery
--- NOTE | 2021-01-13 14:41 | P.PN ---
Subjective Date of Service: 01/13/21 Chief Complaint: Severe sepsis No issues overnight. Nurse reports patient was feeling himself this morning. He is tolerating pureed diet. Physical Examination - Vital Signs Temperature: 97.7 F Blood Pressure: 91/50 Pulse: 56 Respirations: 16 Pulse Ox (%): 93 - Physical Exam General: In no apparent distress, Other (Awake) HEENT: Mucous membr. moist/pink Neck: Supple, JVD not distended Respiratory: Clear to auscultation bilaterally, Normal air movement Cardiovascular: No edema, Regular rate/rhythm Gastrointestinal: Soft and benign, No tenderness Musculoskeletal: No swelling Neurological: Other (Global weakness) Other Physical/Emotional Findings: General: Alert, In no apparent distress. HEENT: Atraumatic, Normocephalic, PERRLA. Neck: Supple, 2+ carotid pulse no bruit, JVD not distended. Respiratory: Clear to auscultation bilaterally, Normal air movement. Cardiovascular: No edema, Normal pulses. Capillary refill: <2 Seconds. Gastrointestinal: Normal bowel sounds, Non-distended. Musculoskeletal: No clubbing, No swelling, No contractures. Integumentary: Other (sacroccyx healing stage 3 pressure ulcer ). Lymphatics: No axilla or inguinal lymphadenopathy Assessment And Plan - Plan Severe sepsis secondary to suspected aspiration pneumonia-on irtapenum at longterm Acute renal failure Dysphagia secondary to previous stroke Hypernatremia, hyperchloremia Hypertension Coffee ground gastric content Severe sepsis secondary to suspected aspiration pneumonia-on ertapenum at longterm: Blood cultures obtained in the ED, gram stain positive, likely contaminant. Blood cultures now growing yeast. Urine culture: Yeast. Patient started on IV Diflucan. Repeat blood culture today. contine meropenem and Diflucan. ID is following. PICC line has was placed ~2 weeks prior to admission. speech therapy consulted - recommended NPO. dobhoff placed, Jevity 1.2 ordered, however patient pulled overnight. ST re-evaluated patient. He is now tolerating pureed diet and nectar thickened liquids. Nursing staff report patient now finishes more than 50% of his meals. He fed himself this morning. No need for PEG tube at this time. Discussed with ID. Patient will be discharged with IV meropenem and Diflucan. He will need at least 2 weeks of IV Diflucan. Acute renal failure: Hypernatremia, hyperchloremia: Nephrology is following, serum creatinine significantly improved. Dysphagia secondary to previous stroke: Patient now tolerating pureed diet. CT head shows subacute infarct family states patient had stroke ~2 months prior to this admission, and believe he had one 1-2 weeks prior to admission as well MRI of the brain recommended by neurology - confirmed subacute stroke. Hypertension: Continue antihypertensives. Continue nifedipine. Coffee ground gastric content noted on 01/05, hgb downtrending, possibly multifactorial, Patient has received >10-11 L IV fluid. Rectal exam performed on 01/06 and negative Hemoccult. Denies any history of GI bleed, CHRISTOPHER reports no knowledge of prior anemia, but she is unsure Possibly from irritation of dobhoff, patient pulled twice Hemoglobin dropped to 6.5. Status post 2 units PRBC transfusion. Posttransfusion hemoglobin is up to 9.5 and stable. Disposition: Clinically stable for discharge to longterm. Physician Review: Patient Assessed, Agree with Above Assessment and Plan Physician Review Additional Text: Severe sepsis secondary to suspected aspiration pneumonia-on irtapenum at longterm Acute renal failure Dysphagia secondary to previous stroke Hypernatremia, hyperchloremia Hypertension Coffee ground gastric content Severe sepsis secondary to suspected aspiration pneumonia-on ertapenum at longterm: Blood cultures obtained in the ED, gram stain positive, likely contaminant. Blood cultures not growing yeast. Patient started on IV Diflucan. contine meropenem & vanc for now, ID is following. PICC line has was placed ~2 weeks prior to admission. was febrile and lethargic on 01/08. CT chest showed worsening pneumonia speech therapy consulted - recommended NPO. dobhoff placed, Jevity 1.2 ordered, however patient pulled overnight. ST re-evaluated patient. He is not tolerating pureed diet. may still need PEG - to be able to maintain hydration. Dr. Calles consulted for PEG tube placement. Acute renal failure: Hypernatremia, hyperchloremia: Nephrology is following, serum creatinine is improving with IVF Continue IV fluid. Dysphagia secondary to previous stroke: CT head shows subacute infarct family states patient had stroke ~2 months prior to this admission, and believe he had one 1-2 weeks prior to admission as well neurology to see patient.- recommended repeat MRI - confirmed subacute stroke Hypertension: Continue antihypertensives. Coffee ground gastric content noted on 01/05, hgb downtrending, possibly multifactorial, Patient has received >10-11 L IV fluid. Rectal exam performed on 01/06 and negative Hemoccult. Denies any history of GI bleed, CHRISTOPHER reports no knowledge of prior anemia, but she is unsure Possibly from irritation of dobhoff, patient pulled twice Dr. Calles consulted - possible EGD, possibly at time of PEG placement if needed. Hemoglobin dropped to 6.5 today. 1 unit PRBC transfusion ordered. Physician Review: Patient Assessed, Agree with Above Assessment and Plan Physician Review Additional Text: 01/11/2021 ERASMO- likely due to pre-renal with component of Hypotension induced ATN Hypernatremia-resolved. CVA with Dysphagia HTN Metabolic Encephalopathy Sepsis with RUL Pneumonia r/o UGI bleed Anemia Hemoglobin is still low at 7 Will transfuse 1 units PRBC Will monitor H&H and transfuse p.r.n. CBC monitored in a.m. Renal parameters monitored Appreciate help from nephrology Appreciate help from wound care Patient is tolerating diet slightly Will get a speech eval Ssurgery was consultedFor possible PEG tube Will hold back on the PEG tube still speech is consulted Awaiting further recovery
[2021-01-13] MEDS: FLUCONAZOLE 200mg IVPB 200 MG/100 ML BAG IV SCH (16:55)
[2021-01-13] MEDS: TERAZOSIN HCL 1 MG CAP PO SCH (21:00)
[2021-01-13] MEDS: SODIUM CHLORIDE 0.9% 10ML INJ IV PRN (21:36)
[2021-01-13] MEDS: MIRTAZAPINE 15 MG TAB PO SCH (21:37)
[2021-01-14 04:35] LABS: MPV 8.7 fL (7.6-11.3)
[2021-01-14 05:35] LABS: Potassium 3.9 mmol/L (3.5-5.1)
--- NOTE | 2021-01-14 06:00 | P.PN ---
Subjective Date of Service: 01/14/21 Chief Complaint: Severe sepsis Subjective: No new changes Physical Examination - Vital Signs Temperature: 98.1 F Blood Pressure: 123/69 Pulse: 76 Respirations: 16 Pulse Ox (%): 93 - Physical Exam General: Alert, In no apparent distress, Oriented x3 HEENT: Atraumatic, Normocephalic, PERRLA Neck: Supple, 2+ carotid pulse no bruit Respiratory: Clear to auscultation bilaterally, Normal air movement Gastrointestinal: Normal bowel sounds, Soft and benign, Non-distended Other Physical/Emotional Findings: General: Alert, In no apparent distress. HEENT: Atraumatic, Normocephalic, PERRLA. Neck: Supple, 2+ carotid pulse no bruit, JVD not distended. Respiratory: Clear to auscultation bilaterally, Normal air movement. Cardiovascular: No edema, Normal pulses. Capillary refill: <2 Seconds. Gastrointestinal: Normal bowel sounds, Non-distended. Musculoskeletal: No clubbing, No swelling, No contractures. Integumentary: Other (sacroccyx healing stage 3 pressure ulcer ). Lymphatics: No axilla or inguinal lymphadenopathy Assessment And Plan - Current Problems (Diagnosis) (1) ARF (acute renal failure) Current Visit: Yes Status: Acute (2) HTN (hypertension) Current Visit: Yes Status: Acute (3) CVA (cerebral vascular accident) Current Visit: Yes Status: Acute (4) Pneumonia Current Visit: Yes Status: Acute Qualifiers: Pneumonia type: due to unspecified organism Laterality: bilateral Physician Review: Patient Assessed, Agree with Above Assessment and Plan Physician Review Additional Text: Severe sepsis secondary to suspected aspiration pneumonia-on irtapenum at snf Acute renal failure Dysphagia secondary to previous stroke Hypernatremia, hyperchloremia Hypertension Coffee ground gastric content PLAN -cr marginally worsen to 1.45 , continue to follow -hypernatremia resolved and improved prior low sodium now -continue to follow trend -h/h stable at 9.5
[2021-01-14 06:35] LABS: Platelet Estimate ADEQ
[2021-01-14] MEDS ORDERED: POTASSIUM 25 MEQ EFFERV TAB PO ONE (08:00)
[2021-01-14] MEDS: HYDRALAZINE HCL 25 MG TABLET PO SCH ×3 (08:54→20:37)
[2021-01-14] MEDS: NIFEDIPINE XL 60 MG TABLET PO SCH (08:54)
[2021-01-14] MEDS: THIAMINE HCL 100 MG TABLET PO SCH (08:54)
[2021-01-14] MEDS: AMLODIPINE 10 MG TAB PO SCH (08:54)
[2021-01-14] MEDS: carvediloL 12.5 MG TAB PO SCH ×2 (08:55→20:37)
[2021-01-14] MEDS: RISPERIDONE 1 MG TABLET PO SCH ×2 (08:55→20:50)
[2021-01-14] MEDS: FOLIC ACID 1 MG TABLET PO SCH (08:55)
[2021-01-14] MEDS: cloNIDine HCL 0.1 MG TAB PO SCH ×2 (08:55→20:37)
[2021-01-14] MEDS: SENOSIDES 8.6 MG TAB PO SCH (08:55)
[2021-01-14] MEDS: PANTOPRAZOLE 40 MG INJ IVP SCH ×2 (08:56→20:51)
[2021-01-14] MEDS: Meropenem 500 MG in NA CHLORIDE 0.9% 100 ML IV SCH ×2 (08:56→20:50)
[2021-01-14] MEDS: ENSURE ENLIVE 237 ML CAN PO SCH ×2 (08:57→20:37)
[2021-01-14] MEDS: JUVEN PACKET PO SCH ×2 (09:00→20:38)
--- NOTE | 2021-01-14 10:46 | P.DS ---
Admission Date: 01/02/21 Discharge Date: 01/14/21 Disposition: TRANSFER TO RESIDENTIAL Discharge Condition: FAIR Reason for Admission: Severe sepsis Consultations: Nephrology Infectious Disease - Problems (1) Severe sepsis Current Visit: Yes Status: Acute (2) Aspiration pneumonia Current Visit: Yes Status: Acute (3) Oropharyngeal dysphagia Current Visit: Yes Status: Acute (4) ARF (acute renal failure) Current Visit: Yes Status: Acute (5) CVA (cerebral vascular accident) Current Visit: Yes Status: Acute (6) HTN (hypertension) Current Visit: Yes Status: Acute Brief History of Present Illness: 65-year-old man with a history of CVA, dysphagia, coronary artery disease, hypertension was transferred from the intermediate to the emergency department because of shortness of breath. Patient was being treated for pneumonia with ertapenem in the intermediate. Per report intermediate staff was feeding patient and he was suspected to be aspirated on some of the food and became s hort of breath. His white cell count in the ED was elevated to 23,000. Chest x- ray demonstrated reticular opacities in the medial right lung base suspicious for developing pneumonia. Patient diagnosed with severe sepsis and admitted for further management. Hospital Course: Diagnosis: Severe sepsis secondary to suspected aspiration pneumonia Acute renal failure Dysphagia secondary to previous stroke Hypernatremia, hyperchloremia Hypertension Coffee ground gastric content Severe sepsis secondary to suspected aspiration pneumonia-on ertapenum at intermediate: Blood cultures obtained in the ED: Coagulase-negative Staph, likely contaminant. Blood cultures grew yeast. Urine culture: Yeast. Patient started on IV Di flucan. Repeat blood culture 01/12: No growth to date. Infectious disease was consulted to assist with management Patient treated with meropenem and Diflucan. PICC line has was placed ~2 weeks prior to admission. speech therapy consulted - he was NPO briefly. Dobhoff was placed, Jevity 1.2 ordered, however patient pulled NGT overnight. He is now tolerating pureed diet and nectar thickened liquids. Nursing staff report patient now finishes more than 50% of his meals. No need for PEG tube at this time. Discussed with ID. Patient will be discharged with IV meropenem and Diflucan. He will need at least 2 weeks of IV Diflucan. Acute renal failure/Hypernatremia, hyperchloremia: Seen by Nephrology, serum creatinine significantly improved. Dysphagia secondary to previous stroke: Patient now tolerating pureed diet. CT head shows subacute infarct family states patient had stroke ~2 months prior to this admission, and believed he had one 1-2 weeks prior to admission as well MRI of the brain recommended by neurology - confirmed subacute stroke. Hypertension: Continued antihypertensives including Nifedipine. Coffee ground gastric content noted on 01/05, hgb downtrending, possibly multifactorial, Patient has received >10-11 L IV fluid. Rectal exam performed on 01/06 and negative Hemoccult. Denies any history of GI bleed. Possibly from irritation of dobhoff, patient pulled twice Hemoglobin dropped to 6.5. Status post 2 units PRBC transfusion. Posttransfusion hemoglobin is up to 9.5 and stable. Patient overall clinically improved. He is deemed stable for discharge to the intermediate where he will continue antibiotics. Vital Signs/Physical Exam: Temp Pulse Resp BP Pulse Ox 97.8 F 70 16 149/78 H 93 01/14/21 08:00 01/14/21 08:55 01/14/21 08:00 01/14/21 08:55 01/14/21 08:00 General: In no apparent distress, Other (Awake) HEENT: Mucous membr. moist/pink Neck: JVD not distended Respiratory: Clear to auscultation bilaterally, Normal air movement Cardiovascular: No edema, Regular rate/rhythm, Normal S1 S2 Gastrointestinal: Normal bowel sounds, Soft and benign, Non-distended Musculoskeletal: No swelling Neurological: Other (He moves all extremities.) Other Physical/Emotional Findings: General: Alert, In no apparent distress. HEENT: Atraumatic, Normocephalic, PERRLA. Neck: Supple, 2+ carotid pulse no bruit, JVD not distended. Respiratory: Clear to auscultation bilaterally, Normal air movement. Cardiovascular: No edema, Normal pulses. Capillary refill: <2 Seconds. Gastrointestinal: Normal bowel sounds, Non-distended. Musculoskeletal: No clubbing, No swelling, No contractures. Integumentary: Other (sacroccyx healing stage 3 pressure ulcer ). Lymphatics: No axilla or inguinal lymphadenopathy Laboratory Data at Discharge: WBC 7.70 K/uL (4.3-10.9) 01/12/21 10:14 Hgb 9.5 g/dL (13.6-17.9) L 01/12/21 10:14 Hct 28.0 % (39.6-49.0) L D 01/12/21 10:14 Plt Count 267 K/uL (152-406) 01/14/21 04:20 PT 12.5 SECONDS (9.5-12.5) 01/08/21 16:22 INR 1.09 01/08/21 16:22 APTT 51.1 SECONDS (24.3-36.9) H 01/14/21 00:30 Sodium 135 mmol/L (136-145) L 01/14/21 04:50 Potassium 3.9 mmol/L (3.5-5.1) 01/14/21 04:50 BUN 22 mg/dL (7-18) H 01/14/21 04:50 Creatinine 1.45 mg/dL (0.55-1.3) H 01/14/21 04:50 Glucose 89 mg/dL (74-106) 01/14/21 04:50 Uric Acid 11.7 mg/dL (3.5-7.2) H 01/03/21 05:13 Phosphorus 2.8 mg/dL (2.5-4.9) 01/08/21 14:37 Magnesium 1.8 mg/dL (1.8-2.4) 01/10/21 05:10 Total Bilirubin 0.3 mg/dL (0.2-1.0) 01/08/21 14:37 AST 42 U/L (15-37) H 01/08/21 14:37 ALT 24 U/L (12-78) 01/08/21 14:37 Alkaline Phosphatase 71 U/L (45-117) 01/08/21 14:37 Home Medications: Carvedilol [Coreg] 12.5 mg PO BID 01/03/21 Cholecalciferol (Vitamin D3) [Vitamin D3] 1 cap PO DAILY 01/03/21 Folic Acid 1 mg PO DAILY 01/03/21 Hydralazine HCl 100 mg PO Q8H 01/03/21 Mirtazapine [Remeron*] 45 mg PO BEDTIME 01/03/21 NIFEdipine [Nifedipine ER] 60 mg PO DAILY 01/03/21 Risperidone [Risperdal] 2 mg PO BID 01/03/21 Sennosides [Senna] 1 tab PO DAILY 01/03/21 Terazosin HCl 2 mg PO BEDTIME 01/03/21 Thiamine HCl 100 mg PO DAILY 01/03/21 Zinc Amino Acid Chelate [Zinc] 50 mg PO DAILY 01/03/21 FLUCONAZOLE 200mg IVPB [Diflucan 200 MG IVPB (PREMIX)*] 200 mg IV DAILY #10 bag 01/12/21 Meropenem [Merrem] 500 mg IV Q12H #14 vial 01/12/21 cloNIDine HCL [Catapres*] 0.1 mg PO BID tab 01/12/21 New Medications: FLUCONAZOLE 200mg IVPB [Diflucan 200 MG IVPB (PREMIX)*] 200 mg IV DAILY #10 bag Meropenem [Merrem] 500 mg IV Q12H #14 vial Physician Discharge Instructions: Please repeat BLOOD CULTURE within 1 week. Please call result to Dr. Salmeron at [phone] for antiobiotics management. Diet: Pureed, nectar thickened liquids. Diet: AHA (Pureed, nectar thickened liquids) Activity: Fall precautions Followup: Manav Salmeron MD [ACTIVE - CAN ADMIT] - 1 Week NONE,NONE [Primary Care Provider] - 1-2 Days Time spent managing pt's care (in minutes): 40
[2021-01-14] MEDS: ACETAMINOPHEN 325 MG TABLET FT PRN (12:14)
[2021-01-14] MEDS: FLUCONAZOLE 200mg IVPB 200 MG/100 ML BAG IV SCH (16:47)
[2021-01-14] MEDS: TERAZOSIN HCL 1 MG CAP PO SCH (20:37)
[2021-01-14] MEDS: MIRTAZAPINE 15 MG TAB PO SCH (20:50)
[2021-01-14] MEDS: SODIUM CHLORIDE 0.9% 10ML INJ IV PRN (20:51)
--- NOTE | 2021-01-15 05:46 | P.PN ---
Subjective Date of Service: 01/15/21 Chief Complaint: Severe sepsis Subjective: No new changes (sleeping comfortably) Physical Examination - Vital Signs Temperature: 97.2 F Blood Pressure: 98/51 Pulse: 58 Respirations: 16 Pulse Ox (%): 93 - Physical Exam General: Alert, In no apparent distress, Oriented x3 HEENT: Atraumatic, Normocephalic, PERRLA Neck: 2+ carotid pulse no bruit, JVD not distended Respiratory: Clear to auscultation bilaterally, Normal air movement Cardiovascular: No edema, Normal pulses, Regular rate/rhythm, Normal S1 S2 Gastrointestinal: Normal bowel sounds, Soft and benign, Non-distended Musculoskeletal: No clubbing, No swelling Other Physical/Emotional Findings: General: Alert, In no apparent distress. HEENT: Atraumatic, Normocephalic, PERRLA. Neck: Supple, 2+ carotid pulse no bruit, JVD not distended. Respiratory: Clear to auscultation bilaterally, Normal air movement. Cardiovascular: No edema, Normal pulses. Capillary refill: <2 Seconds. Gastrointestinal: Normal bowel sounds, Non-distended. Musculoskeletal: No clubbing, No swelling, No contractures. Integumentary: Other (sacroccyx healing stage 3 pressure ulcer ). Lymphatics: No axilla or inguinal lymphadenopathy Assessment And Plan - Current Problems (Diagnosis) (1) ARF (acute renal failure) Current Visit: Yes Status: Acute (2) HTN (hypertension) Current Visit: Yes Status: Acute (3) CVA (cerebral vascular accident) Current Visit: Yes Status: Acute (4) Pneumonia Current Visit: Yes Status: Acute Qualifiers: Pneumonia type: due to unspecified organism Laterality: bilateral Physician Review: Patient Assessed, Agree with Above Assessment and Plan Physician Review Additional Text: Severe sepsis secondary to suspected [facility]enum [facility] Acute renal failure Dysphagia secondary to previous stroke Hypernatremia, hyperchloremia Hypertension Coffee ground gastric content PLAN -follow repeat creatinine -BP trending down , will dc Norvasc -Hypernatremia resolved -continue to follow trend -h/h stable at 9.5 -follow plan for dc if still improving creatinine today
[2021-01-15 07:10] LABS: Potassium 4.3 mmol/L (3.5-5.1)
[2021-01-15] MEDS: JUVEN PACKET PO SCH ×2 (09:00→21:00)
[2021-01-15] MEDS: cloNIDine HCL 0.1 MG TAB PO SCH ×2 (09:48→21:00)
[2021-01-15] MEDS: NIFEDIPINE XL 60 MG TABLET PO SCH (09:48)
[2021-01-15] MEDS: HYDRALAZINE HCL 25 MG TABLET PO SCH ×3 (09:48→21:00)
[2021-01-15] MEDS: PANTOPRAZOLE 40 MG INJ IVP SCH ×2 (09:48→21:35)
[2021-01-15] MEDS: carvediloL 12.5 MG TAB PO SCH ×2 (09:49→21:00)
[2021-01-15] MEDS: SENOSIDES 8.6 MG TAB PO SCH (09:49)
[2021-01-15] MEDS: THIAMINE HCL 100 MG TABLET PO SCH (09:49)
[2021-01-15] MEDS: RISPERIDONE 1 MG TABLET PO SCH ×2 (09:49→21:31)
[2021-01-15] MEDS: FOLIC ACID 1 MG TABLET PO SCH (09:49)
[2021-01-15] MEDS: Meropenem 500 MG in NA CHLORIDE 0.9% 100 ML IV SCH ×2 (09:50→21:34)
--- NOTE | 2021-01-15 11:16 | P.PN ---
Subjective Date of Service: 01/14/21 Chief Complaint: Severe sepsis No issues overnight. Patient has no new complain. He is tolerating pureed diet. Physical Examination - Vital Signs Temperature: 97.8 F Blood Pressure: 144/71 Pulse: 69 Respirations: 16 Pulse Ox (%): 94 - Physical Exam General: In no apparent distress, Other (Awake and interactive) Neck: JVD not distended Respiratory: Clear to auscultation bilaterally, Normal air movement Cardiovascular: No edema, Regular rate/rhythm, Normal S1 S2 Gastrointestinal: Soft and benign, Non-distended Musculoskeletal: No swelling Neurological: Other (No focal motor deficit.) Other Physical/Emotional Findings: General: Alert, In no apparent distress. HEENT: Atraumatic, Normocephalic, PERRLA. Neck: Supple, 2+ carotid pulse no bruit, JVD not distended. Respiratory: Clear to auscultation bilaterally, Normal air movement. Cardiovascular: No edema, Normal pulses. Capillary refill: <2 Seconds. Gastrointestinal: Normal bowel sounds, Non-distended. Musculoskeletal: No clubbing, No swelling, No contractures. Integumentary: Other (sacroccyx healing stage 3 pressure ulcer ). Lymphatics: No axilla or inguinal lymphadenopathy Assessment And Plan - Current Problems (Diagnosis) (1) Severe sepsis Current Visit: Yes Status: Acute (2) Aspiration pneumonia Current Visit: Yes Status: Acute (3) Oropharyngeal dysphagia Current Visit: Yes Status: Acute (4) ARF (acute renal failure) Current Visit: Yes Status: Acute (5) CVA (cerebral vascular accident) Current Visit: Yes Status: Acute (6) HTN (hypertension) Current Visit: Yes Status: Acute - Plan Severe sepsis secondary to suspected aspiration pneumonia-on irtapenum at residential Acute renal failure Dysphagia secondary to previous stroke Hypernatremia, hyperchloremia Hypertension Coffee ground gastric content Severe sepsis secondary to suspected aspiration pneumonia-on ertapenum at residential: Blood cultures obtained in the ED, gram stain positive, likely contaminant. Blood cultures now growing yeast. Urine culture: Yeast. Continue IV Diflucan. Repeat blood culture: No growth. contine meropenem and Diflucan. ID is following. PICC line was placed ~2 weeks prior to admission. He is tolerating pureed diet and nectar thickened liquids. Nursing staff report patient now finishes more than 50% of his meals. He feeds himself. No need for PEG tube at this time. Discussed with ID. Patient will be discharged with IV meropenem and Diflucan. He will need at least 2 weeks of IV Diflucan. Acute renal failure: Hypernatremia, hyperchloremia: Nephrology is following, serum creatinine significantly improved and stable at 1.4. Dysphagia secondary to previous stroke: Patient now tolerating pureed diet. CT head shows subacute infarct family states patient had stroke ~2 months prior to this admission, and believe he had one 1-2 weeks prior to admission as well MRI of the brain recommended by neurology - confirmed subacute stroke. Hypertension: Continue antihypertensives. Continue Nifedipine. Coffee ground gastric content noted on 01/05, hgb downtrending, possibly multifactorial, including dilutional effect of IV fluid. Rectal exam performed on 01/06 and negative Hemoccult. Denies any history of GI bleed. Possibly from irritation of dobhoff, patient pulled twice Hemoglobin dropped to 6.5. Status post 2 units PRBC transfusion. Posttransfusion hemoglobin is up to 9.5 and stable. Monitor CBC. Disposition: Clinically stable for discharge to residential. Physician Review: Patient Assessed, Agree with Above Assessment and Plan Physician Review Additional Text: Severe sepsis secondary to suspected aspiration pneumonia-on irtapenum at residential Acute renal failure Dysphagia secondary to previous stroke Hypernatremia, hyperchloremia Hypertension Coffee ground gastric content PLAN -follow repeat creatinine -BP trending down , will dc Norvasc -Hypernatremia resolved -continue to follow trend -h/h stable at 9.5 -follow plan for dc if still improving creatinine today
--- NOTE | 2021-01-15 11:24 | P.PN ---
Subjective Date of Service: 01/15/21 Chief Complaint: Severe sepsis No issues overnight. Patient has no new complain. He is tolerating pureed diet. Patient seen eating his breakfast this morning. Physical Examination - Vital Signs Temperature: 97.8 F Blood Pressure: 144/71 Pulse: 69 Respirations: 16 Pulse Ox (%): 94 - Physical Exam General: In no apparent distress, Other (Awake) Neck: JVD not distended Cardiovascular: No edema, Regular rate/rhythm, Normal S1 S2 Gastrointestinal: Normal bowel sounds, Soft and benign, Non-distended Musculoskeletal: No swelling Integumentary: No rashes Other Physical/Emotional Findings: General: Alert, In no apparent distress. HEENT: Atraumatic, Normocephalic, PERRLA. Neck: Supple, 2+ carotid pulse no bruit, JVD not distended. Respiratory: Clear to auscultation bilaterally, Normal air movement. Cardiovascular: No edema, Normal pulses. Capillary refill: <2 Seconds. Gastrointestinal: Normal bowel sounds, Non-distended. Musculoskeletal: No clubbing, No swelling, No contractures. Integumentary: Other (sacroccyx healing stage 3 pressure ulcer ). Lymphatics: No axilla or inguinal lymphadenopathy Assessment And Plan - Current Problems (Diagnosis) (1) Severe sepsis Current Visit: Yes Status: Acute (2) Aspiration pneumonia Current Visit: Yes Status: Acute (3) Oropharyngeal dysphagia Current Visit: Yes Status: Acute (4) ARF (acute renal failure) Current Visit: Yes Status: Acute (5) CVA (cerebral vascular accident) Current Visit: Yes Status: Acute (6) HTN (hypertension) Current Visit: Yes Status: Acute - Plan Severe sepsis secondary to [facility]enum [facility] Acute renal failure Dysphagia secondary to previous stroke Hypernatremia, hyperchloremia Hypertension Coffee ground gastric content Severe sepsis secondary to suspected aspiration pneumonia-on ertapenum at [facility]: Blood cultures obtained in the ED, gram stain positive, likely contaminant. Blood cultures now growing yeast. Urine culture: Yeast. Continue IV Diflucan. Repeat blood culture: No growth. contine meropenem and Diflucan. ID is following. PICC line was placed ~2 weeks prior to admission. He is tolerating pureed diet and nectar thickened liquids. Nursing staff report patient now finishes more than 50% of his meals. He feeds himself. No need for PEG tube at this time. Discussed with ID. Patient will be discharged with IV meropenem and Diflucan. He will need at least 2 weeks of IV Diflucan. Acute renal failure: Hypernatremia, hyperchloremia: Nephrology is following, serum creatinine significantly improved and stable at 1.4. Dysphagia secondary to previous stroke: Patient now tolerating pureed diet. CT head shows subacute infarct family states patient had stroke ~2 months prior to this admission, and believe he had one 1-2 weeks prior to admission as well MRI of the brain recommended by neurology - confirmed subacute stroke. Hypertension: Continue antihypertensives. Continue Nifedipine. Coffee ground gastric content noted on 01/05, hgb downtrending, possibly multifactorial, including dilutional effect of IV fluid. Rectal exam performed on 01/06 and negative Hemoccult. Denies any history of GI bleed. Possibly from irritation of dobhoff, patient pulled twice Hemoglobin dropped to 6.5. Status post 2 units PRBC transfusion. Posttransfusion hemoglobin is up to 9.5 and stable. Monitor CBC. Disposition: Clinically [facility] for [facility].
[2021-01-15] MEDS: ENSURE ENLIVE 237 ML CAN PO SCH ×2 (15:47→21:32)
[2021-01-15] MEDS: FLUCONAZOLE 200mg IVPB 200 MG/100 ML BAG IV SCH (16:34)
[2021-01-15] MEDS: TERAZOSIN HCL 1 MG CAP PO SCH (21:00)
[2021-01-15] MEDS: MIRTAZAPINE 15 MG TAB PO SCH (21:31)
[2021-01-15] MEDS: ACETAMINOPHEN 325 MG TABLET FT PRN (21:32)
[2021-01-16 05:44] LABS: Absolute Lymphocytes (CBC) 1.5 K/uL (0.7-4.9); Basophils % 1.5 % (0-1.3); Hematocrit 22.5 % (39.6-49.0); MPV 8.2 fL (7.6-11.3); RBC Red Blood Cell Count 2.65 M/uL (4.33-5.43)
[2021-01-16 05:57] LABS: Magnesium 1.8 mg/dL (1.8-2.4); Potassium 4.3 mmol/L (3.5-5.1)
[2021-01-16] MEDS ORDERED: MAGNESIUM SULFATE 1 gm IVPB 1 GM/100 ML BAG IV ONE (06:19)
--- NOTE | 2021-01-16 06:23 | P.PN ---
Subjective Date of Service: 01/16/21 Chief Complaint: Severe sepsis Subjective: No new changes, No C/O voiced Physical Examination - Vital Signs Temperature: 98 F Blood Pressure: 126/68 Pulse: 68 Respirations: 18 Pulse Ox (%): 97 - Physical Exam General: Alert, In no apparent distress, Oriented x3 HEENT: Atraumatic, Normocephalic, PERRLA Neck: 2+ carotid pulse no bruit, JVD not distended Respiratory: Clear to auscultation bilaterally, Normal air movement Gastrointestinal: Normal bowel sounds, Soft and benign, Non-distended Other Physical/Emotional Findings: General: Alert, In no apparent distress. HEENT: Atraumatic, Normocephalic, PERRLA. Neck: Supple, 2+ carotid pulse no bruit, JVD not distended. Respiratory: Clear to auscultation bilaterally, Normal air movement. Cardiovascular: No edema, Normal pulses. Capillary refill: <2 Seconds. Gastrointestinal: Normal bowel sounds, Non-distended. Musculoskeletal: No clubbing, No swelling, No contractures. Integumentary: Other (sacroccyx healing stage 3 pressure ulcer ). Lymphatics: No axilla or inguinal lymphadenopathy Assessment And Plan - Current Problems (Diagnosis) (1) ARF (acute renal failure) Current Visit: Yes Status: Acute (2) HTN (hypertension) Current Visit: Yes Status: Acute (3) CVA (cerebral vascular accident) Current Visit: Yes Status: Acute (4) Pneumonia Current Visit: Yes Status: Acute Qualifiers: Pneumonia type: due to unspecified organism Laterality: bilateral Physician Review: Patient Assessed, Agree with Above Assessment and Plan Physician Review Additional Text: Severe sepsis secondary to suspected aspiration pneumonia-on irtapenum at [facility]ial Acute renal failure Dysphagia secondary to previous stroke Hypernatremia, hyperchloremia Hypertension Coffee ground gastric content PLAN -BP improved now -improving cr to 1.4 -low h/h , consider PRBC -Hypernatremia resolved -continue to follow trend -follow plan for dc if otherwise stable
[2021-01-16] MEDS ORDERED: FLUCONAZOLE 200mg IVPB 200 MG/100 ML BAG IV SCH (07:00)
[2021-01-16] MEDS: RISPERIDONE 1 MG TABLET PO SCH ×3 (09:38→21:53)
[2021-01-16] MEDS: PANTOPRAZOLE 40 MG INJ IVP SCH ×2 (09:38→21:56)
[2021-01-16] MEDS: NIFEDIPINE XL 60 MG TABLET PO SCH (09:38)
[2021-01-16] MEDS: HYDRALAZINE HCL 25 MG TABLET PO SCH ×3 (09:38→21:00)
[2021-01-16] MEDS: SENOSIDES 8.6 MG TAB PO SCH (09:39)
[2021-01-16] MEDS: carvediloL 12.5 MG TAB PO SCH ×3 (09:39→21:00)
[2021-01-16] MEDS: THIAMINE HCL 100 MG TABLET PO SCH (09:39)
[2021-01-16] MEDS: cloNIDine HCL 0.1 MG TAB PO SCH (09:39)
[2021-01-16] MEDS: FOLIC ACID 1 MG TABLET PO SCH (09:39)
[2021-01-16] MEDS: ENSURE ENLIVE 237 ML CAN PO SCH ×3 (09:40→21:00)
[2021-01-16] MEDS: Meropenem 500 MG in NA CHLORIDE 0.9% 100 ML IV SCH ×2 (09:40→22:06)
[2021-01-16] MEDS: SODIUM CHLORIDE 0.9% 10ML INJ IV PRN (09:40)
[2021-01-16] MEDS: JUVEN PACKET PO SCH ×2 (09:41→21:00)
--- NOTE | 2021-01-16 09:49 | P.PN ---
Subjective Date of Service: 01/16/21 Chief Complaint: Severe sepsis Patient seen and examined at bedside, no acute complaints. Afebrile with a Tmax of 98.0. Review of Systems 10-point ROS is otherwise unremarkable Physical Examination - Vital Signs Temperature: 97.5 F Blood Pressure: 138/65 Pulse: 61 Respirations: 16 Pulse Ox (%): 97 - Physical Exam Other Physical/Emotional Findings: General: Alert, In no apparent distress. HEENT: Atraumatic, Normocephalic, PERRLA. Neck: Supple, 2+ carotid pulse no bruit, JVD not distended. Respiratory: decreased breath sounds. Cardiovascular: No edema, Normal pulses. Capillary refill: <2 Seconds. Gastrointestinal: Normal bowel sounds, Non-distended. Musculoskeletal: No clubbing, No swelling, No contractures. Integumentary: Other (sacroccyx healing stage 3 pressure ulcer ). Lymphatics: No axilla or inguinal lymphadenopathy - Studies Laboratory Last Values WBC 23.50 K/uL (4.3-10.9) H* 01/02/21 14:56 RBC 3.91 M/uL (4.33-5.43) L 01/02/21 14:56 Hgb 11.3 g/dL (13.6-17.9) L 01/02/21 14:56 Hct 35.0 % (39.6-49.0) L 01/02/21 14:56 MCV 89.3 fL (80-100) 01/02/21 14:56 MCH 28.8 pg (27.0-35.0) 01/02/21 14:56 MCHC 32.2 g/dL (32.0-36.0) 01/02/21 14:56 RDW 15.2 % (12.1-15.2) 01/02/21 14:56 Plt Count 336 K/uL (152-406) 01/02/21 14:56 MPV 10.6 fL (7.6-11.3) 01/02/21 14:56 Neutrophils % 91.7 % (41.7-73.7) H 01/02/21 14:56 Lymphocytes % 3.7 % (15.3-44.8) L 01/02/21 14:56 Monocytes % 3.7 % (3.3-12.3) 01/02/21 14:56 Eosinophils % 0.6 % (0-4.4) 01/02/21 14:56 Basophils % 0.3 % (0-1.3) 01/02/21 14:56 Absolute Neutrophils 21.5 K/uL (1.8-8.0) H 01/02/21 14:56 Segmented Neutrophils 85 % (40-80) H 01/02/21 14:56 Band Neutrophils 2 % (0-1) H 01/02/21 14:56 Absolute Lymphocytes 0.9 K/uL (0.7-4.9) 01/02/21 14:56 Lymphocytes 7 % (15-42) L 01/02/21 14:56 Monocytes 5 % (0-10) 01/02/21 14:56 Absolute Monocytes 0.9 K/uL (0.1-1.3) 01/02/21 14:56 Eosinophils 1 % (0-3) 01/02/21 14:56 Absolute Eosinophils 0.1 K/uL (0-0.5) 01/02/21 14:56 Absolute Basophils 0.1 K/uL (0-0.5) 01/02/21 14:56 Platelet Estimate Adeq 01/02/21 14:56 Morphology Comment Not seen (NOT SEEN) 01/02/21 14:56 PT 13.0 SECONDS (9.5-12.5) H 01/02/21 14:56 INR 1.13 01/02/21 14:56 APTT 30.0 SECONDS (24.3-36.9) 01/02/21 14:56 Sodium 162 mmol/L (136-145) H* 01/02/21 14:56 Potassium 3.9 mmol/L (3.5-5.1) 01/02/21 14:56 Chloride 129 mmol/L (98-107) H* 01/02/21 14:56 Carbon Dioxide 24 mmol/L (21-32) 01/02/21 14:56 BUN 97 mg/dL (7-18) H 01/02/21 14:56 Creatinine 3.77 mg/dL (0.55-1.3) H 01/02/21 14:56 Estimated GFR 16 mL/min (=/>90) L 01/02/21 14:56 Glucose 181 mg/dL (74-106) H 01/02/21 14:56 POC Glucose 164 mg/dL (65-120) H 01/02/21 15:14 Lactic Acid 1.4 mmol/L (0.4-2.0) 01/02/21 14:56 Calcium 9.1 mg/dL (8.5-10.1) 01/02/21 14:56 Total Bilirubin 0.4 mg/dL (0.2-1.0) 01/02/21 14:56 Direct Bilirubin 0.1 mg/dL (0-0.2) 01/02/21 14:56 AST 35 U/L (15-37) 01/02/21 14:56 ALT 17 U/L (12-78) 01/02/21 14:56 Alkaline Phosphatase 79 U/L (45-117) 01/02/21 14:56 Creatine Kinase 682 U/L (39-308) H 01/02/21 14:56 Rapid Troponin I 0.04 ng/mL (0.0-0.045) 01/02/21 14:56 Serum Total Protein 7.5 g/dL (6.4-8.2) 01/02/21 14:56 Albumin 2.4 g/dL (3.4-5.0) L 01/02/21 14:56 Globulin 5.1 g/dL (2.3-3.5) H 01/02/21 14:56 Albumin/Globulin Ratio 0.5 (1.1-1.8) L 01/02/21 14:56 Procalcitonin 0.30 ng/mL (<0.050) H 01/02/21 14:56 Urine pH 5.0 (5.0-7.0) 01/02/21 17:15 Ur Specific [place] 1.020 (1.005-1.030) 01/02/21 17:15 Glucose (UA)(Auto) Negative (NEG) 01/02/21 17:15 Urine Ketones Negative (NEG) 01/02/21 17:15 Urine Blood Negative (NEG) 01/02/21 17:15 Urine Nitrite Negative (NEG) 01/02/21 17:15 Ur Leukocyte Esterase Negative (NEG) 01/02/21 17:15 Urine RBC <5 /HPF (NONE SEEN) 01/02/21 16:30 Urine WBC <5 /HPF (<5) 01/02/21 16:30 Ur Squamous Epith Cells <5 /HPF (NONE SEEN) 01/02/21 16:30 Amorphous Sediment 3+ /HPF (NONE SEEN) H 01/02/21 16:30 Urine Bacteria <20 /HPF (NONE SEEN) 01/02/21 16:30 Urine Mucus 1+ /HPF (NONE SEEN) 01/02/21 16:30 Urine Culture Reflexed Not needed 01/02/21 16:30 Urine Total Protein Negative (NEG) 01/02/21 17:15 SARS-CoV-2 RNA (RT-PCR) Negative (NEGATIVE) 01/02/21 14:35 Assessment And Plan - Plan Assessment -severe sepsis -fungemia and UTI -aspiration pneumonia -anemia -sacrococcyx stage 3 healing wound plan: -sepsis: continue to monitor vitals. Vitals stable, leukocytosis resolved. -fungemia and fungal UTI: Repeat blood culture on 01/12 showed no growth. Continue fluconazole for two weeks after negative culture-end dated 01/26. UA on 01/09 was positve and grew yeast-repeat UA on 01/25 and if positive continue fluconazole. -pneumonia: continue meropenum-two week course ends on 01/17. Repeat CXR has been ordered. -sacrococcyx ulcer: apply barrier cream and cover with foam-patient continues to refuse examination of wound. -medical management per primary team -continue to monitor CBC and BMP -monitor for signs of infection Plan of care discussed with Dr. Salmeron. Thank you for consultation. Physician Review: Patient Assessed, Agree with Above Assessment and Plan
[2021-01-16 11:19] LABS: Hematocrit 24.6 % (39.6-49.0)
--- NOTE | 2021-01-16 15:03 | RAD REPORT ---
EXAM DESCRIPTION: RAD - Chest Single View - 01/16/2021 2:47 pm CLINICAL HISTORY: SOB Chest pain. COMPARISON: Chest Single View dated 01/09/2021; Abdomen 1 View (KUB) dated 01/06/2021; Abdomen 1 View (KUB) dated 01/04/2021; Chest Single View dated 01/03/2021 FINDINGS: Portable technique limits examination quality. Right lung base infiltrate demonstrates mild improvement since the prior study. The heart is upper li jaspreet normal in size. Right-sided PICC line has tip in the SVC. IMPRESSION: Mild improvement in right lung base infiltrate since prior study.
--- NOTE | 2021-01-16 15:57 | P.PN ---
Subjective Date of Service: 01/16/21 Chief Complaint: Severe sepsis Subjective: No new changes (feeling "ok" today, without complaints) Physical Examination - Vital Signs Temperature: 97.5 F Blood Pressure: 85/52 Pulse: 59 Respirations: 16 Pulse Ox (%): 95 - Physical Exam Other Physical/Emotional Findings: General: Alert, In no apparent distress. HEENT: Atraumatic, Normocephalic, PERRLA. Neck: Supple, 2+ carotid pulse no bruit, JVD not distended. Respiratory: decreased breath sounds. Cardiovascular: No edema, Normal pulses. Capillary refill: <2 Seconds. Gastrointestinal: Normal bowel sounds, Non-distended. Musculoskeletal: No clubbing, No swelling, No contractures. Integumentary: Other (sacroccyx healing stage 3 pressure ulcer ). Lymphatics: No axilla or inguinal lymphadenopathy Assessment & Plan Physician Review Additional Text: Physical Exam: Gen: NAD, AAOx2 HEENT: normal conjunctiva Pulm: CTAB, slight diminished at bases bilaterally CV: RRR, no murmur Abd: soft, NTND Ext: no rash/edema Skin: sacral decub ulcer - pt did not allow me to re-examine today Problem List: Severe sepsis secondary to suspected aspiration pneumonia-on irtapenum at care home Acute renal failure Dysphagia secondary to previous stroke Hypernatremia, hyperchloremia Hypertension Coffee ground gastric content Severe sepsis secondary to suspected aspiration pneumonia-on ertapenum at care home: Blood cultures obtained in the ED, gram stain positive, likely contaminant. Blood cultures then grew yeast, Urine culture: Yeast. Continue IV Diflucan. Repeat blood culture: No growth. contine meropenem and Diflucan. ID is following. PICC line was placed ~2 weeks prior to admission. He is tolerating pureed diet and nectar thickened liquids. Nursing staff report patient now finishes more than 50% of his meals. He feeds himself. No need for PEG tube at this time. Discussed with ID. Patient will be discharged with IV meropenem and Diflucan. He will need at least 2 weeks of IV Diflucan. If discharge continues to be delayed, he may finish meropenem here. Diflucan until ~01/26 Acute renal failure: Hypernatremia, hyperchloremia: Nephrology is following, serum creatinine significantly improved and stable at ~1.4. Dysphagia secondary to previous stroke: Patient now tolerating pureed diet. CT head shows subacute infarct family states patient had stroke ~2 months prior to this admission, and believe he had one 1-2 weeks prior to admission as well MRI of the brain recommended by neurology - confirmed subacute stroke. Hypertension: Continue antihypertensives. patient with occasional hypotension now will decrease medications, dc catapres, lower dose of hydralazine from 100 -> 50 Coffee ground gastric content noted on 01/05, hgb downtrended, possibly multifactorial, including dilutional effect of IV fluid. Rectal exam performed on 01/06 and negative Hemoccult. Denies any history of GI bleed. Possibly from irritation of dobhoff, patient pulled at least twice Hemoglobin dropped to 6.5. Status post 2 units PRBC transfusion. Hgb down to 7.6 this morning, recheck Hgb stable up to 8 Disposition: Clinically stable for discharge to care home. Time Spent Managing Pts Care (In Minutes): 45
[2021-01-16] MEDS: FLUCONAZOLE 200mg IVPB 200 MG/100 ML BAG IV SCH (18:01)
[2021-01-16] MEDS: MIRTAZAPINE 15 MG TAB PO SCH ×2 (21:00→21:52)
[2021-01-16] MEDS: TERAZOSIN HCL 1 MG CAP PO SCH (21:00)
[2021-01-17 05:34] LABS: Absolute Lymphocytes (CBC) 1.6 K/uL (0.7-4.9); Basophils % 0.5 % (0-1.3); Hematocrit 24.5 % (39.6-49.0); Lymphocytes % 20.2 % (15.3-44.8); MPV 8.3 fL (7.6-11.3); RBC Red Blood Cell Count 2.86 M/uL (4.33-5.43)
[2021-01-17 05:48] LABS: Potassium 4.1 mmol/L (3.5-5.1)
[2021-01-17] MEDS: NIFEDIPINE XL 60 MG TABLET PO SCH (08:57)
[2021-01-17] MEDS: HYDRALAZINE HCL 25 MG TABLET PO SCH ×2 (08:57→13:49)
[2021-01-17] MEDS: SENOSIDES 8.6 MG TAB PO SCH (08:57)
[2021-01-17] MEDS: THIAMINE HCL 100 MG TABLET PO SCH (08:58)
[2021-01-17] MEDS: RISPERIDONE 1 MG TABLET PO SCH (08:58)
[2021-01-17] MEDS: FOLIC ACID 1 MG TABLET PO SCH (08:58)
[2021-01-17] MEDS: PANTOPRAZOLE 40 MG INJ IVP SCH (08:58)
[2021-01-17] MEDS: Meropenem 500 MG in NA CHLORIDE 0.9% 100 ML IV SCH (08:59)
[2021-01-17] MEDS: JUVEN PACKET PO SCH (08:59)
[2021-01-17] MEDS: ENSURE ENLIVE 237 ML CAN PO SCH (09:00)
[2021-01-17] MEDS: carvediloL 12.5 MG TAB PO SCH (09:00)
--- NOTE | 2021-01-17 11:57 | P.PN ---
Subjective Date of Service: 01/17/21 Chief Complaint: Severe sepsis Patient seen and examined at bedside, no acute complains. Tmax of 97.6. Wound shows no acute changes. Patient denies pain to area. Review of Systems 10-point ROS is otherwise unremarkable Physical Examination - Vital Signs Temperature: 97.1 F Blood Pressure: 153/70 Pulse: 57 Respirations: 15 Pulse Ox (%): 96 - Physical Exam Other Physical/Emotional Findings: General: Alert, In no apparent distress. HEENT: Atraumatic, Normocephalic, PERRLA. Neck: Supple, 2+ carotid pulse no bruit, JVD not distended. Respiratory: decreased breath sounds. Cardiovascular: No edema, Normal pulses. Capillary refill: <2 Seconds. G astrointestinal: Normal bowel sounds, Non-distended. Musculoskeletal: No clubbing, No swelling, No contractures. Integumentary: Other (sacroccyx healing stage 3 pressure ulcer ). Lymphatics: No axilla or inguinal lymphadenopathy - Studies Laboratory Last Values WBC 23.50 K/uL (4.3-10.9) H* 01/02/21 14:56 RBC 3.91 M/uL (4.33-5.43) L 01/02/21 14:56 Hgb 11.3 g/dL (13.6-17.9) L 01/02/21 14:56 Hct 35.0 % (39.6-49.0) L 01/02/21 14:56 MCV 89.3 fL (80-100) 01/02/21 14:56 MCH 28.8 pg (27.0-35.0) 01/02/21 14:56 MCHC 32.2 g/dL (32.0-36.0) 01/02/21 14:56 RDW 15.2 % (12.1-15.2) 01/02/21 14:56 Plt Count 336 K/uL (152-406) 01/02/21 14:56 MPV 10.6 fL (7.6-11.3) 01/02/21 14:56 Neutrophils % 91.7 % (41.7-73.7) H 01/02/21 14:56 Lymphocytes % 3.7 % (15.3-44.8) L 01/02/21 14:56 Monocytes % 3.7 % (3.3-12.3) 01/02/21 14:56 Eosinophils % 0.6 % (0-4.4) 01/02/21 14:56 Basophils % 0.3 % (0-1.3) 01/02/21 14:56 Absolute Neutrophils 21.5 K/uL (1.8-8.0) H 01/02/21 14:56 Segmented Neutrophils 85 % (40-80) H 01/02/21 14:56 Band Neutrophils 2 % (0-1) H 01/02/21 14:56 Absolute Lymphocytes 0.9 K/uL (0.7-4.9) 01/02/21 14:56 Lymphocytes 7 % (15-42) L 01/02/21 14:56 Monocytes 5 % (0-10) 01/02/21 14:56 Absolute Monocytes 0.9 K/uL (0.1-1.3) 01/02/21 14:56 Eosinophils 1 % (0-3) 01/02/21 14:56 Absolute Eosinophils 0.1 K/uL (0-0.5) 01/02/21 14:56 Absolute Basophils 0.1 K/uL (0-0.5) 01/02/21 14:56 Platelet Estimate Adeq 01/02/21 14:56 Morphology Comment Not seen (NOT SEEN) 01/02/21 14:56 PT 13.0 SECONDS (9.5-12.5) H 01/02/21 14:56 INR 1.13 01/02/21 14:56 APTT 30.0 SECONDS (24.3-36.9) 01/02/21 14:56 Sodium 162 mmol/L (136-145) H* 01/02/21 14:56 Potassium 3.9 mmol/L (3.5-5.1) 01/02/21 14:56 Chloride 129 mmol/L (98-107) H* 01/02/21 14:56 Carbon Dioxide 24 mmol/L (21-32) 01/02/21 14:56 BUN 97 mg/dL (7-18) H 01/02/21 14:56 Creatinine 3.77 mg/dL (0.55-1.3) H 01/02/21 14:56 Estimated GFR 16 mL/min (=/>90) L 01/02/21 14:56 Glucose 181 mg/dL (74-106) H 01/02/21 14:56 POC Glucose 164 mg/dL (65-120) H 01/02/21 15:14 Lactic Acid 1.4 mmol/L (0.4-2.0) 01/02/21 14:56 Calcium 9.1 mg/dL (8.5-10.1) 01/02/21 14:56 Total Bilirubin 0.4 mg/dL (0.2-1.0) 01/02/21 14:56 Direct Bilirubin 0.1 mg/dL (0-0.2) 01/02/21 14:56 AST 35 U/L (15-37) 01/02/21 14:56 ALT 17 U/L (12-78) 01/02/21 14:56 Alkaline Phosphatase 79 U/L (45-117) 01/02/21 14:56 Creatine Kinase 682 U/L (39-308) H 01/02/21 14:56 Rapid Troponin I 0.04 ng/mL (0.0-0.045) 01/02/21 14:56 Serum Total Protein 7.5 g/dL (6.4-8.2) 01/02/21 14:56 Albumin 2.4 g/dL (3.4-5.0) L 01/02/21 14:56 Globulin 5.1 g/dL (2.3-3.5) H 01/02/21 14:56 Albumin/Globulin Ratio 0.5 (1.1-1.8) L 01/02/21 14:56 Procalcitonin 0.30 ng/mL (<0.050) H 01/02/21 14:56 Urine pH 5.0 (5.0-7.0) 01/02/21 17:15 Ur Specific [place] 1.020 (1.005-1.030) 01/02/21 17:15 Glucose (UA)(Auto) Negative (NEG) 01/02/21 17:15 Urine Ketones Negative (NEG) 01/02/21 17:15 Urine Blood Negative (NEG) 01/02/21 17:15 Urine Nitrite Negative (NEG) 01/02/21 17:15 Ur Leukocyte Esterase Negative (NEG) 01/02/21 17:15 Urine RBC <5 /HPF (NONE SEEN) 01/02/21 16:30 Urine WBC <5 /HPF (<5) 01/02/21 16:30 Ur Squamous Epith Cells <5 /HPF (NONE SEEN) 01/02/21 16:30 Amorphous Sediment 3+ /HPF (NONE SEEN) H 01/02/21 16:30 Urine Bacteria <20 /HPF (NONE SEEN) 01/02/21 16:30 Urine Mucus 1+ /HPF (NONE SEEN) 01/02/21 16:30 Urine Culture Reflexed Not needed 01/02/21 16:30 Urine Total Protein Negative (NEG) 01/02/21 17:15 SARS-CoV-2 RNA (RT-PCR) Negative (NEGATIVE) 01/02/21 14:35 Assessment And Plan - Plan Assessment -severe sepsis -fungemia and UTI -aspiration pneumonia -anemia -sacrococcyx stage 3 healing wound plan: -sepsis: continue to monitor vitals. Vitals stable, leukocytosis resolved. -fungemia and fungal UTI: Repeat blood culture on 01/12 showed no growth. Continue fluconazole for two weeks after negative culture-end dated 01/26. UA on 01/09 was positve and grew yeast-repeat UA on 01/25 and if positive continue fluconazole. -pneumonia: Antibiotic course of meropenem to be completed on 01/17. Repeat chest x-ray showed mild improvement in right lung base infiltrate since prior study. Patient placed on oral Augmentin for the next 7 days, plan to order a repeat chest x-ray following online completion. -sacrococcyx ulcer: apply barrier cream and cover with foam-clinically stable at this time with no active draining. -medical management per primary team -continue to monitor CBC and BMP -monitor for signs of infection Plan of care discussed with Dr. Salmeron. Thank you for consultation. Physician Review: Patient Assessed, Agree with Above Assessment and Plan
--- NOTE | 2021-01-17 11:59 | P.PN ---
Subjective Date of Service: 01/17/21 Chief Complaint: Severe sepsis Subjective: No new changes Physical Examination - Vital Signs Temperature: 97.1 F Blood Pressure: 153/70 Pulse: 57 Respirations: 15 Pulse Ox (%): 96 - Physical Exam General: Other (drowsy) HEENT: Atraumatic, Normocephalic Neck: Supple, 2+ carotid pulse no bruit Respiratory: Clear to auscultation bilaterally, Normal air movement Cardiovascular: No edema, Normal pulses, Regular rate/rhythm Gastrointestinal: Normal bowel sounds, Soft and benign, Non-distended Integumentary: No rashes, No breakdown Other Physical/Emotional Findings: General: Alert, In no apparent distress. HEENT: Atraumatic, Normocephalic, PERRLA. Neck: Supple, 2+ carotid pulse no bruit, JVD not distended. Respiratory: decreased breath sounds. Cardiovascular: No edema, Normal pulses. Capillary refill: <2 Seconds. Gastrointestinal: Normal bowel sounds, Non-distended. Musculoskeletal: No clubbing, No swelling, No contractures. Integumentary: Other (sacroccyx healing stage 3 pressure ulcer ). Lymphatics: No axilla or inguinal lymphadenopathy Assessment And Plan - Current Problems (Diagnosis) (1) ARF (acute renal failure) Current Visit: Yes Status: Acute (2) HTN (hypertension) Current Visit: Yes Status: Acute (3) CVA (cerebral vascular accident) Current Visit: Yes Status: Acute (4) Pneumonia Current Visit: Yes Status: Acute - Plan Severe sepsis secondary to suspected aspiration pneumonia-on irtapenum at [facility] Acute renal failure Dysphagia secondary to previous stroke Hypernatremia, hyperchloremia Hypertension Coffee ground gastric content PLAN - creatinine overall improevd and plateau now at 1.54 - follow trend - continue to avoid nephrotoxins - still expcted some mroe improvement -if further decline in am , reincrease IVF Physician Review: Patient Assessed, Agree with Above Assessment and Plan Physician Review Additional Text: Problem List: Severe sepsis secondary to suspected aspiration pneumonia-on irtapenum at [facility] Acute renal failure Dysphagia secondary to previous stroke Hypernatremia, hyperchloremia Hypertension Coffee ground gastric content Severe sepsis secondary to suspected aspiration pneumonia-on ertapenum at [facility]: Blood cultures obtained in the ED, gram stain positive, likely contaminant. Blood cultures then grew yeast, Urine culture: Yeast. Continue IV Diflucan. Repeat blood culture: No growth. contine meropenem and Diflucan. ID is following. PICC line was placed ~2 weeks prior to admission. He is tolerating pureed diet and nectar thickened liquids. Nursing staff report patient now finishes more than 50% of his meals. He feeds himself. No need for PEG tube at this time. Discussed with ID. Patient will be discharged with IV meropenem and Diflucan. He will need at least 2 weeks of IV Diflucan. If discharge continues to be delayed, he may finish meropenem here. Diflucan until ~01/26 Acute renal failure: Hypernatremia, hyperchloremia: Nephrology is following, serum creatinine significantly improved and stable at ~1.4. Dysphagia secondary to previous stroke: Patient now tolerating pureed diet. CT head shows subacute infarct family states patient had stroke ~2 months prior to this admission, and believe he had one 1-2 weeks prior to admission as well MRI of the brain recommended by neurology - confirmed subacute stroke. Hypertension: Continue antihypertensives. patient with occasional hypotension now will decrease medications, dc catapres, lower dose of hydralazine from 100 -> 50 Coffee ground gastric content noted on 01/05, hgb downtrended, possibly multifactorial, including dilutional effect of IV fluid. Rectal exam performed on 01/06 and negative Hemoccult. Denies any history of GI bleed. Possibly from irritation of dobhoff, patient pulled at least twice Hemoglobin dropped to 6.5. Status post 2 units PRBC transfusion. Hgb down to 7.6 this morning, recheck Hgb stable up to 8 Disposition: Clinically stable for discharge to [facility].
[2021-01-17 16:35] VITALS: O2SAT 97
--- NOTE | 2021-01-17 16:50 | RAD REPORT ---
EXAM DESCRIPTION: US - UPPER EXTREMITY VENOUS UNILATE - 01/17/2021 4:28 pm CLINICAL HISTORY: Left arm pain and swelling, PICC line in place COMPARISON: None. TECHNIQUE: Real-time sonographic evaluation of the left upper extremity deep venous systems was perf ormed. FINDINGS: No no left upper extremity deep venous thrombosis was identifiable. Exam is limited due to the contracted positioning of the patient and limited mobility of the forearm. Color flow was seen t hrough the deep veins on Doppler assessment. Ability to compress the veins was limited. Basilic vein assessment was limited due to the presence of the PICC line. IMPRESSION: Left upper extremity examination was limited. However, no finding seen suspicious for le ft upper extremity deep venous thrombosis.
--- NOTE | 2021-01-17 16:58 | P.DS ---
Admission Date: 01/02/21 Discharge Date: 01/17/21 Disposition: TRANSFER TO GROUP HOME Discharge Condition: FAIR Reason for Admission: Severe sepsis Consultations: Neurology - Dr. Biswas Infectious Disease - Dr. Salmeron Nephrology - Dr. Coello General Surgery - Dr. Calles Pulmonology - Dr. Mccall Procedures: CT Head (01/02): No intracranial hemorrhage is present. No mass lesion, mass effect or midline shift. Moderately large subacute infarction involving the superior portion left cerebellum. Left frontal and right cerebellum diminished attenuation probably old infarction sites. Advanced for age atrophy and chronic ischemic change. Chronic ischemic change can mask other sites of nonhemorrhagic CVA. Ventricles appear slightly out of proportion for the amount of volume loss. Correlation can be made with any symptoms of normal pressure hydrocephalus. CXR (01/02): Mild reticular opacities in the medial right lung base raise suspicion for possible developing pneumonia. The lungs are otherwise grossly clear. The heart is normal in size. Right-sided PICC line has tip in the SVC. Renal U/S (01/03): No hydronephrosis or suspicious renal mass. Urinary bladder was not visualized adequately. CXR (01/03): The tip of a Dobhoff tube lies within the gastric fundus MRI Brain (01/04): Moderate-sized subacute nonhemorrhagic infarction involving the superior left cerebellum and left vermis. Old infarction changes in the anterior left frontal lobe and inferior right cerebellum. Patient has prominent for age atrophy and chronic ischemic change. CT Chest/Abd/Pelvis (01/08): CT scan of the chest shows bilateral lower lobe pneumonia worse on the left. No cavitation or lung parenchymal abscess seen. Large stool volume distends the rectosigmoid colon. No wall thickening or other colitis findings. As detailed above, no abnormality in the abdomen and pelvis seen as a source for sepsis. Overall assessment is limited in the absence of oral and IV contrast. No other significant findings on chest, abdomen and upper pelvis examination. Venous U/S (01/08): No DVT in either lower extremity. CXR (01/09): Mild worsening in right lung base infiltrate since prior study. TTE (01/09): normal LVEF (55-60%), normal wall motion. Mild diastolic dysfunction. CXR (01/16): Mild improvement in right lung base infiltrate since prior study. Venous U/S (01/17): examination was limited. However, no finding seen suspicious for upper extremity deep venous thrombosis. Problem List: Severe sepsis secondary to suspected aspiration pneumonia Acute renal failure Dysphagia secondary to previous stroke Hypernatremia, hyperchloremia Hypertension Brief History of Present Illness: 65-year-old man with a history of CVA, dysphagia, coronary artery disease, hypertension was transferred from the long term to the emergency department because of shortness of breath. Patient was being treated for pneumonia with ertapenem in the long term. Per report long term staff was feeding patient and he was suspected to be aspirated on some of the food and became short of breath. His white cell count in the ED was elevated to 23,000. Chest x-ray demonstrated reticular opacities in the medial right lung base suspicious for developing pneumonia. Patient diagnosed with severe sepsis and admitted for further management. Hospital Course: by problem list: Severe sepsis secondary to suspected aspiration pneumonia: PICC placed ~2 weeks prior to admission and was reportedly on ertapenem at long term. Blood cultures obtained in the ED: Coagulase-negative Staph, likely contaminant. Repeat blood cultures grew yeast. Urine culture: Yeast. Patient started on IV Diflucan. Repeat blood culture 01/12: No growth to date. Infectious disease was consulted, patient completed 2 weeks of Meropenem, and to continue Diflucan through 01/26 for 2 weeks total. Aspiration suspected due to worsening dysphagia secondary to subacute stroke Patient slowly improved. Dysphagia secondary to previous stroke: Patient was NPO for several days due to concern for aspiration and failing swallow evaluations by speech therapy. Dobhoff was eventually placed and enteral feeds (Jevity) were started. Patient was agitated at times and pulled the do bhoff out 2-3 times. Eventually, as he improved / sepsis resolved, he was able to have enough strength/coordination to do well on the swallow eval. General surgery was consulted for possible PEG, but this was not done due to patient eating much better. CT head showed subacute infarct. Neurology was consulted and agreed with obtaining MRI - which confirmed the subacute stroke Patient's antiplatelet therapy was held when his hemoglobin dropped for concern for bleeding. Once stable, neurology recommended restarting aspirin, but at a lower frequency (every other day) Acute renal failure/Hypernatremia, hyperchloremia: Seen by Nephrology, resolved/improved with IVF, recommend repeat BMP in next week or so. Hypertension: Continued antihypertensives possible/questionable coffee ground gastric content noted on 01/05, hgb downtrended, possibly multifactorial, Patient received >10-11 L IV fluid by that time. Rectal exam performed on 01/06 and negative Hemoccult. Patient denied any h/o GI bleed. Thought to be possibly due to irritation from dobhoff. He ultimately did require 2 units PRBCs for low hgb of 6.5 Post transfusion hgb was stable and no signs of over blood loss. Hgb on day of discharge: 7.9 recommend recheck CBC/CMP in ~1 week. Vital Signs/Physical Exam: Physical Exam: Gen: NAD, AAOx2 HEENT: normal conjunctiva, sclera anicteric Pulm: CTAB, slight diminished at bases bilaterally CV: RRR, no murmur Abd: soft, NTND Ext: no rash/edema Skin: sacral decub ulcer -stage 3 Temp Pulse Resp BP Pulse Ox 97.5 F 60 16 106/58 L 97 01/17/21 12:00 01/17/21 12:00 01/17/21 12:00 01/17/21 12:00 01/17/21 12:00 Laboratory Data at Discharge: WBC 7.70 K/uL (4.3-10.9) 01/17/21 05:19 Hgb 7.9 g/dL (13.6-17.9) L* 01/17/21 05:19 Hct 24.5 % (39.6-49.0) L 01/17/21 05:19 Plt Count 294 K/uL (152-406) 01/17/21 05:19 PT 12.5 SECONDS (9.5-12.5) 01/08/21 16:22 INR 1.09 01/08/21 16:22 APTT 27.5 SECONDS (24.3-36.9) 01/15/21 06:30 Sodium 143 mmol/L (136-145) 01/17/21 05:19 Potassium 4.1 mmol/L (3.5-5.1) 01/17/21 05:19 BUN 29 mg/dL (7-18) H 01/17/21 05:19 Creatinine 1.54 mg/dL (0.55-1.3) H 01/17/21 05:19 Glucose 81 mg/dL (74-106) 01/17/21 05:19 Uric Acid 11.7 mg/dL (3.5-7.2) H 01/03/21 05:13 Phosphorus 2.8 mg/dL (2.5-4.9) 01/08/21 14:37 Magnesium 2.0 mg/dL (1.8-2.4) 01/17/21 05:19 Total Bilirubin 0.3 mg/dL (0.2-1.0) 01/08/21 14:37 AST 42 U/L (15-37) H 01/08/21 14:37 ALT 24 U/L (12-78) 01/08/21 14:37 Alkaline Phosphatase 71 U/L (45-117) 01/08/21 14:37 Home Medications: Carvedilol [Coreg] 12.5 mg PO BID 01/03/21 Cholecalciferol (Vitamin D3) [Vitamin D3] 1 cap PO DAILY 01/03/21 Folic Acid 1 mg PO DAILY 01/03/21 Hydralazine HCl 100 mg PO Q8H 01/03/21 Mirtazapine [Remeron*] 45 mg PO BEDTIME 01/03/21 NIFEdipine [Nifedipine ER] 60 mg PO DAILY 01/03/21 Risperidone [Risperdal] 2 mg PO BID 01/03/21 Sennosides [Senna] 1 tab PO DAILY 01/03/21 Terazosin HCl 2 mg PO BEDTIME 01/03/21 Thiamine HCl 100 mg PO DAILY 01/03/21 Zinc Amino Acid Chelate [Zinc] 50 mg PO DAILY 01/03/21 FLUCONAZOLE 200mg IVPB [Diflucan 200 MG IVPB (PREMIX)*] 200 mg IV DAILY #10 bag 01/12/21 Aspirin [Aspirin EC 81 MG] 81 mg PO Q48H 30 Days #30 tablet. 01/17/21 New Medications: Aspirin [Aspirin EC 81 MG] 81 mg PO Q48H 30 Days #30 tablet. FLUCONAZOLE 200mg IVPB [Diflucan 200 MG IVPB (PREMIX)*] 200 mg IV DAILY #10 bag Physician Discharge Instructions: You were found to have a recent stroke, likely contributing to your aspiration pneumonia. You were treated with IV antibiotics, and also found to have yeast in your urine and blood. Repeat blood culture on 01/12 showed no growth. Continue fluconazole for two weeks after negative culture (Last day: 01/26) Please repeat BLOOD CULTURE within 1 week. Please call result to Dr. Salmeron at [phone] for antiobiotics management. UA on 01/09 was positve and grew yeast- please repeat UA on 01/25 and if positive continue fluconazole. Meropenum-two week course ends on 01/17. Diet: Pureed, nectar thickened liquids. Continue to monitor blood pressure, as you did have some moments of low blood pressure. You were also noted to be anemia with your Hgb low and required a blood transfusion. Your Hgb was stable for the rest of the hospitalization. You antiplatelet medication was reduced to aspirin 81mg every other day. Please monitor for any signs of bleeding. Follow up with your PCP in the next week. Follow up with Neurology in ~4 weeks. Diet: AHA (Pureed, nectar thickened liquids) Activity: Fall precautions Followup: Emir Biswas MD [ASSOCIATE-ACTIVE - CAN ADMIT] - Manav Salmeron MD [ACTIVE - CAN ADMIT] - 1 Week NONE,NONE [Primary Care Provider] - 1-2 Days Time spent managing pt's care (in minutes): 40
[2021-01-17] MEDS: FLUCONAZOLE 200mg IVPB 200 MG/100 ML BAG IV SCH (17:17)
[2021-01-17 17:45] VITALS: BP 130/64; TEMP 97.1
[2021-01-17] MEDS ORDERED: AMOX/K CLAV 500 MG TAB PO SCH (21:00)
== END 2021-01-17 18:18 | DRG 871 ==
LOC: ER 14:26 → ERHOLD 19:30 → 2ND 22:09
PROVIDERS: ADMIT Hospitalist; ATTEND Hospitalist
PROC: 30233N1 Transfusion of Nonautologous Red Blood Cells into Peripheral Vein, Percutaneous Approach (ICD-10-PCS; principal; 2021-01-10)
DX: A41.9 Sepsis, unspecified organism (principal); L89.153 Pressure ulcer of sacral region, stage 3; J69.0 Pneumonitis due to inhalation of food and vomit; G93.41 Metabolic encephalopathy; E43 Unspecified severe protein-calorie malnutrition; N17.9 Acute kidney failure, unspecified; E87.0 Hyperosmolality and hypernatremia; N39.0 Urinary tract infection, site not specified; R65.20 Severe sepsis without septic shock; I69.391 Dysphagia following cerebral infarction; R13.12 Dysphagia, oropharyngeal phase; E83.51 Hypocalcemia; E87.8 Other disorders of electrolyte and fluid balance, not elsewhere classified; D64.9 Anemia, unspecified; I10 Essential (primary) hypertension; I25.10 Atherosclerotic heart disease of native coronary artery without angina pectoris; Z79.82 Long term (current) use of aspirin; Z68.21 Body mass index [BMI] 21.0-21.9, adult; Z79.899 Other long term (current) drug therapy; Z20.822 Contact with and (suspected) exposure to COVID-19
CPT/HCPCS: 36415; 70450; 70551; 71045; 71250; 74018; 74176; 76770; 80048; 80053; 80076; 80202; 81003; 81015; 82550; 82570; 82728; 82747; 82947; 83010; 83540; 83605; 83615; 83735; 84100; 84145; 84300; 84466; 84484; 84550; 85014; 85018; 85025; 85027; 85044; 85049; 85379; 85610; 85730; 86850; 86900; 86901; 87040; 87070; 87086; 87088; 87205; 92526; 92610; 93005; 93306; 93970; 93971; 94010; 96374; 96375; 97161; 97530; 99291; 99292; C9113; J0360; J0692; J1450; J1644; J2185; J2370; J2597; J2704; J2997; J3370; J3475; J3480; J7030; J7050; P9016; U0003

== ENCOUNTER 2021-01-24 15:09 | Inpatient (IN) | payer OTHER ==
[2021-01-24 15:33] LABS: Absolute Lymphocytes (CBC) 0.8 K/uL (0.7-4.9); Basophils % 0.7 % (0-1.3); Lymphocytes % 11.4 % (15.3-44.8); RBC Red Blood Cell Count 4.01 M/uL (4.33-5.43)
--- NOTE | 2021-01-24 15:44 | RAD REPORT ---
EXAM DESCRIPTION: CT - Head Brain Wo Cont - 01/24/2021 3:36 pm CLINICAL HISTORY: AMS COMPARISON: Abdomen 1 View (KUB) dated 01/14/2021Head Brain Wo Cont dated 01/03/2021 TECHNIQUE: Axial 5 mm thick images of the head were obtained without IV contrast. All CT scans are performed using dose optimization technique as appropriate and may include automated exposure control or mA/KV adjustment according to patient size. FINDINGS: No intracranial hemorrhage, mass, edema or shift of mid-line structures. No acute cortical based infarction identified. Old medial left frontal lobe CVA changes are present. Cerebellum old in farction changes are noted as well. Patient has advanced for age atrophy and advanced for age chronic ischemic change. Ventricles are in proportion to the volume loss. Arterial tree calcifications are p resent. No abnormal extra-axial fluid collections. Intracranial findings are not substantially differ ent from the January 03 study. Mastoid air cells and visualized portions of the paranasal sinuses are clear. No acute bony findings. IMPRESSION: Negative non-contrast CT head examination for acute intracranial finding. Patient has advanced for age atrophy and chronic ischemic change. Ventricles are in proportion. Cereb ellum and left frontal old infarction changes noted. Intracranial findings are similar to comparison.
[2021-01-24] MEDS ORDERED: Ringers Lactate 1,000 ML IV ONE (15:52)
--- NOTE | 2021-01-24 16:11 | RAD REPORT ---
EXAM DESCRIPTION: RAD - Chest Single View - 01/24/2021 3:40 pm CLINICAL HISTORY: AMS;Fever COMPARISON: Portable January 16 TECHNIQUE: AP portable chest image was obtained 01/24/2021 3:40 pm . FINDINGS: No aspiration or infectious pneumonia changes identifiable. Chronic interstitial pattern m atches comparison. Heart and vasculature are normal. No measurable pleural effusion and no pneumothor ax. No acute bony abnormality seen. No acute aortic findings suspected. IMPRESSION: No acute cardiopulmonary process. Chronic interstitial lung disease matches comparison.
[2021-01-24 16:31] LABS: Potassium 4.7 mmol/L (3.5-5.1)
--- NOTE | 2021-01-24 16:35 | ER ---
Nurse's Notes [facility] Name: Drake Friend Age: 65 yrs Sex: Male : 1955 Arrival Date: 01/24/2021 Time: 15:10 Bed 2 Private MD: Diagnosis: Dysphagia;Dehydration Presentation: 01/24 15:12 Chief complaint: EMS states: Unable to eat or drink without aspirating and AMS x 3 hb days. Recently inpatient with [facility], per [place] staff family has been yet do decide between PEG placement vs hospice. Coronavirus screen: Client presents with at least one sign or symptom that may indicate coronavirus-19. Standard/surgical mask placed on the client. Provider contacted for isolation considerations. Ebola Screen: No symptoms or risks identified at this time. Initial Sepsis Screen: Does the patient meet any 2 criteria? Altered Mental Status. No. Patient's initial sepsis screen is negative. Does the patient have a suspected source of infection? No. Patient's initial sepsis screen is negative. Risk Assessment: Do you want to hurt yourself or someone else? Patient reports no desire to harm self or others. Onset of symptoms was January 24, 2021. 15:12 Acuity: STU 2 hb 15:12 Method Of Arrival: EMS: [facility] hb Historical: - Allergies: 15:16 No Known Allergies; hb - Home Meds: 15:16 carvedilol 12.5 mg Oral tab 1 tab every 12 hours [Active]; cholecalciferol (vitamin D3) hb 5,000 unit Oral cap daily [Active]; folic acid 1 mg Oral tab 1 tab once daily [Active]; hydralazine 100 mg Oral tab 1 tab 3 times per day [Active]; losartan 100 mg Oral tab 1 tab once daily [Active]; Nifedipine ER Oral 60 mg daily [Active]; Plavix 75 mg Oral tab 1 tab once daily [Active]; Remeron 45 mg Oral tab 1 tab once daily [Active]; Risperdal 2 mg Oral tab 1 tab 2 times per day [Active]; senna 8.6 mg Oral tab 2 tabs once daily [Active]; terazosin 2 mg Oral cap 1 cap once daily [Active]; thiamine HCl (vitamin B1) 100 mg Oral tab daily [Active]; Vitamin B-12 1,000 mcg Oral tab daily [Active]; zinc sulfate 220 (50) mg Oral cap daily [Active]; - PMHx: 15:16 CVA; Pneumonia; hb 15:18 CKD - Stage 3B; Anemia; Dysphagia; hb - Immunization history:: Adult Immunizations up to date. - Social history:: Smoking status: unknown. - Family history:: not pertinent. - Hospitalizations: : No recent hospitalization is reported. Screenin:24 Abuse screen: Denies threats or abuse. Denies injuries from another. Nutritional ph screening: No deficits noted. Tuberculosis screening: No symptoms or risk factors identified. Fall Risk None identified. Assessment: 15:45 General: Appears ill, slender, Behavior is calm, quiet, Responsive to painful stimuli ss only. . Pain: Unable to use pain scale. Does not appear to understand pain scale. Neuro: Level of Consciousness is confused, lethargic, Oriented to none. Cardiovascular: Capillary refill < 3 seconds is brisk in bilateral fingers Patient's skin is warm and dry. Respiratory: Airway is patent Respiratory effort is even, unlabored, Respiratory pattern is regular, symmetrical. GI: Abdomen is non-distended, Bowel sounds present X 4 quads. : Incontinence. EENT: Nares are clear Oral mucosa is moist. Throat is clear. Derm: Skin is intact, is healthy with good turgor, Skin is dry, Skin is pink, warm \T\ dry. normal. Musculoskeletal: Range of motion: limited in all extremities. 16:15 Neuro: Level of Consciousness is awake, confused, Oriented to none. Respiratory: Airway ss is patent Respiratory effort is even, unlabored, Respiratory pattern is regular, symmetrical. 17:00 Reassessment: Patient appears in no apparent distress at this time. PT is resting at ss this time. Eyes closed. Respirations even and unlabored. 18:40 Reassessment: No changes from previously documented assessment. awaiting room ss assignment for admission. 19:24 Reassessment: patient lying on bed, not in distress, eyes open, waiting for admit. mg2 Vital Signs: 15:12 BP 154 / 84; Pulse 84; Resp 22; Temp 100; Pulse Ox 95% on R/A; Pain 1/10; hb 16:15 BP 138 / 82; Pulse 87; Resp 18; Pulse Ox 96% on R/A; ss 17:00 BP 138 / 82; Pulse 87; Resp 24; Pulse Ox 96% on R/A; ss 19:24 BP 160 / 86; Pulse 83; Resp 18; Pulse Ox 96% on R/A; mg2 21:16 BP 148 / 88; Pulse 87; Resp 18; Pulse Ox 94% on R/A; mg2 21:16 Temp 99.5; rr5 15:12 Lucio (FACES) hb [place] Coma Score: 19:24 Eye Response: to voice(3). Verbal Response: incomprehensible(2). Motor Response: mg2 localizes pain(5). Total: 10. ED Course: 15:10 Patient arrived in ED. rn 15:10 Conrad Hanna MD is Attending Physician. rn 15:14 Triage completed. hb 15:18 Dory Forbes RN is Primary Nurse. ph 15:18 Arm band placed on. hb 15:35 CT Head Brain wo Cont In Process Unspecified. EDMS 15:40 XRAY Chest (1 view) In Process Unspecified. EDMS 16:10 Inserted saline lock: 22 gauge in left antecubital area, using aseptic technique. Blood ss collected. 16:24 Patient has correct armband on for positive identification. Bed in low position. Call ph light in reach. Side rails up X2. Pulse ox on. NIBP on. Door closed. Noise minimized. Warm blanket given. 16:33 Reina Velazquez MD is Hospitalizing Provider. rn 19:23 No provider procedures requiring assistance completed. Patient admitted, IV remains in mg2 place. Administered Medications: 15:50 Drug: Lactated Ringers Solution 1000 ml Route: IV; Rate: 300 ml/hr; Site: left ss antecubital; 19:13 Follow up: IV Status: Completed infusion; IV Intake: 1000ml ss Intake: 19:13 IV: 1000ml; Total: 1000ml. ss Outcome: 16:15 Condition: stable ss 16:15 Instructed on the need for admit. 16:34 Decision to Hospitalize by Provider. rn 21:34 Admitted to Med/surg accompanied by nurse, via stretcher, room 215, with chart, Report rr5 called to ángela 21:46 Patient left the ED. rr5 Signatures: Dispatcher [employer] EDMS Conrad Hanna MD MD rn Smirch, Shelby, RN RN Dory Forbes RN RN Herlinda Villegas RN RN Ash Tsai RN RN [facility] Jovani Lopez RN RN rr5 Corrections: (The following items were deleted from the chart) 16:25 15:45 Neuro: Level of Consciousness is confused, lethargic, ss 18:45 18:42 Neuro: ss 18:45 18:42 Reassessment: Pt is resting at this time. Eyes closed. Respirations remain even ss and unlabored ss
--- NOTE | 2021-01-24 16:35 | EDPHYS ---
Physician Documentation [facility] Name: Drake Friend Age: 65 yrs Sex: Male : 1955 Arrival Date: 01/24/2021 Time: 15:10 Bed 2 Private MD: ED Physician Conrda Hanna HPI: 01/24 15:16 This 65 yrs old Male presents to ER via EMS with complaints of AMS, not rn eating. 15:16 The patient presents with decreased responsiveness. Onset: The symptoms/episode rn began/occurred at an unknown time. Possible causes: unknown. Associated signs and symptoms:. The patient has experienced a previous episode. The patient has been recently seen at the [facility]. Per EMS report, pt sent from [facility] for AMS and not eating. Recently admitted for possible aspiration pneumonia and possible subacute stroke. Has been on abx and getting D5NS daily since not eating or drinking. Per [facility], family has not been able to decide about feeding tube or hospice. . Historical: - Allergies: 15:16 No Known Allergies; hb - Home Meds: 15:16 carvedilol 12.5 mg Oral tab 1 tab every 12 hours [Active]; cholecalciferol (vitamin D3) hb 5,000 unit Oral cap daily [Active]; folic acid 1 mg Oral tab 1 tab once daily [Active]; hydralazine 100 mg Oral tab 1 tab 3 times per day [Active]; losartan 100 mg Oral tab 1 tab once daily [Active]; Nifedipine ER Oral 60 mg daily [Active]; Plavix 75 mg Oral tab 1 tab once daily [Active]; Remeron 45 mg Oral tab 1 tab once daily [Active]; Risperdal 2 mg Oral tab 1 tab 2 times per day [Active]; senna 8.6 mg Oral tab 2 tabs once daily [Active]; terazosin 2 mg Oral cap 1 cap once daily [Active]; thiamine HCl (vitamin B1) 100 mg Oral tab daily [Active]; Vitamin B-12 1,000 mcg Oral tab daily [Active]; zinc sulfate 220 (50) mg Oral cap daily [Active]; - PMHx: 15:16 CVA; Pneumonia; hb 15:18 CKD - Stage 3B; Anemia; Dysphagia; hb - Immunization history:: Adult Immunizations up to date. - Social history:: Smoking status: unknown. - Family history:: not pertinent. - Hospitalizations: : No recent hospitalization is reported. ROS: 15:16 Unable to obtain ROS due to baseline CVA and aphasia. rn Exam: 15:16 Constitutional: Thin cachectic male, with mild tachypnea Head/Face: Normocephalic, rn atraumatic. ENT: extremely dry MM, thick secretions Cardiovascular: Regular rate and rhythm. No pulse deficits. Respiratory: coarse bilateral breath sounds, no retractions. Abdomen/GI: soft, non-tender Skin: Pale, + sacral decubitus ulcer MS/ Extremity: Pulses equal, no cyanosis. Neuro: Awake, aphasic, grunting Vital Signs: 15:12 BP 154 / 84; Pulse 84; Resp 22; Temp 100; Pulse Ox 95% on R/A; Pain 1/10; hb 16:15 BP 138 / 82; Pulse 87; Resp 18; Pulse Ox 96% on R/A; ss 17:00 BP 138 / 82; Pulse 87; Resp 24; Pulse Ox 96% on R/A; ss 19:24 BP 160 / 86; Pulse 83; Resp 18; Pulse Ox 96% on R/A; mg2 21:16 BP 148 / 88; Pulse 87; Resp 18; Pulse Ox 94% on R/A; mg2 21:16 Temp 99.5; rr5 15:12 Araujo-Rocha (FACES) hb [place] Coma Score: 19:24 Eye Response: to voice(3). Verbal Response: incomprehensible(2). Motor Response: mg2 localizes pain(5). Total: 10. MDM: 15:10 Patient medically screened. rn 16:32 Differential Diagnosis: CVA, electrolyte abnormality, hypoglycemia, pneumonia, UTI, rn volume depletion. Data reviewed: vital signs, nurses notes, lab test result(s), radiologic studies, CT scan, plain films, and as a result, I will admit patient. Counseling: I had a detailed discussion with the patient and/or guardian regarding: the historical points, exam findings, and any diagnostic results supporting the discharge/admit diagnosis, lab results, radiology results, the need for further work-up and treatment in the hospital. Response to treatment: the patient's symptoms have mildly improved after treatment, and as a result, I will admit patient. Admission orders: after a detailed discussion of the patient's condition and case, the admit orders are written by me. 01/24 15:14 Order name: CBC with Diff rn 01/24 15:14 Order name: Basic Metabolic Panel rn 01/24 15:14 Order name: Urine Culture rn 01/24 15:14 Order name: Urine Microscopic Only rn 01/24 15:14 Order name: Procalcitonin rn 01/24 15:14 Order name: CBC with Automated Diff; Complete Time: 15:50 EDMS 01/24 15:14 Order name: Basic Metabolic Panel; Complete Time: 16:34 EDMS 01/24 16:34 Order name: Urine Dipstick--Ancillary (enter results) bd 01/24 16:48 Order name: CBC with Automated Diff EDMS 01/24 16:48 Order name: Comprehensive Metabolic Panel EDMS 01/24 16:48 Order name: Comprehensive Metabolic Panel EDMS 01/24 16:48 Order name: Protime (+INR) EDMS 01/24 16:48 Order name: Protime (+INR) EDMS 01/24 15:14 Order name: IV Start; Complete Time: 15:58 rn 01/24 15:14 Order name: Urine Dipstick-Ancillary (obtain specimen); Complete Time: 15:58 rn 01/24 15:14 Order name: XRAY Chest (1 view); Complete Time: 16:13 rn 01/24 15:14 Order name: CT Head Brain wo Cont; Complete Time: 15:50 rn 01/24 15:48 Order name: Labs - recollect needed: recollect c7 and procal; Complete Time: 15:58 bd 01/24 16:48 Order name: NPO EDMS 01/24 16:48 Order name: PTT, Activated Partial Thromb EDMS 01/24 16:48 Order name: PTT, Activated Partial Thromb EDMS 01/24 16:48 Order name: CBC with Automated Diff EDMS 01/24 16:59 Order name: SARS-COV-2 RT PCR EDMS Administered Medications: 15:50 Drug: Lactated Ringers Solution 1000 ml Route: IV; Rate: 300 ml/hr; Site: left ss antecubital; 19:13 Follow up: IV Status: Completed infusion; IV Intake: 1000ml ss Disposition: 01/24/21 16:34 Hospitalization ordered by Reina Velazquez for Inpatient Admission. Preliminary diagnosis are Dysphagia, Dehydration. - Bed requested for Telemetry/MedSurg (Inpatient). - Status is Inpatient Admission. rr5 - Condition is Stable. - Problem is an ongoing problem. - Symptoms have improved. Signatures: Dispatcher [employer] EDIA Laly YaryConrad Long MD MD rn Smirch, Shelby, RN RN ss Liliana Buck, SOTO RN cg Herlinda Villegas, SOTO VALERA Jovani Lopez RN RN rr5 Corrections: (The following items were deleted from the chart) 16:17 15:15 CORONAVIRUS+MR.LAB.BRZ ordered. [facility] EDIA 21:11 16:34 Hospitalization Ordered by Reina Velazquez MD for Inpatient Admission. Preliminary cg diagnosis is Dysphagia; Dehydration. Bed requested for Telemetry/MedSurg (Inpatient). Status is Inpatient Admission. Condition is Stable. Problem is an ongoing problem. Symptoms have improved. rn 21:46 21:11 01/24/2021 16:34 Hospitalization Ordered by Reina Velazquez MD for Inpatient rr5 Admission. Preliminary diagnosis is Dysphagia; Dehydration. Bed requested for Telemetry/MedSurg (Inpatient). Status is Inpatient Admission. Condition is Stable. Problem is an ongoing problem. Symptoms have improved. cg
[2021-01-24 16:43] LABS: Urine Blood NEGATIVE (NEG); Urine Glucose NEGATIVE (NEG); Urine Protein 2+ (NEG); Urine Specific Gravity 1.025 (1.005-1.030)
[2021-01-24] MEDS ORDERED: ONDANSETRON 4 MG/2 ML VIAL IV PRN (16:46)
[2021-01-24] MEDS ORDERED: MORPHINE 2 MG/ML SYR IV PRN (16:46)
[2021-01-24] MEDS ORDERED: ACETAMINOPHEN 500 MG TAB PO PRN (16:46)
[2021-01-24 17:12] LABS: Urine Amorphous Sediment 4+ /HPF (NONE SEEN); Urine Bacteria <20 /HPF (NONE SEEN); Urine RBC NONE SEEN /HPF (NONE SEEN)
[2021-01-24] MEDS: D5W 1,000 ML IV SCH (23:02)
[2021-01-25] MEDS: ACETAMINOPHEN 650MG/RECT SUPP PR PRN (05:27)
[2021-01-25 06:35] LABS: Absolute Lymphocytes (CBC) 1.1 K/uL (0.7-4.9); Basophils % 1.1 % (0-1.3); Hematocrit 27.6 % (39.6-49.0); Lymphocytes % 16.1 % (15.3-44.8); MPV 8.9 fL (7.6-11.3); RBC Red Blood Cell Count 3.17 M/uL (4.33-5.43)
[2021-01-25 06:49] LABS: Protime INR 1.11
[2021-01-25 06:50] LABS: Albumin 1.8 g/dL (3.4-5.0); Bilirubin Total 1.1 mg/dL (0.2-1.0); Potassium 4.2 mmol/L (3.5-5.1); Protein, Total 6.7 g/dL (6.4-8.2)
--- NOTE | 2021-01-25 10:09 | P.HP ---
Certification for Inpatient Patient admitted to: Inpatient With expected LOS: >2 Midnights Patient will require the following post-hospital care: None Practitioner: I am a practitioner with admitting privileges, knowledge of patient current condition, hospital course, and medical plan of care. Services: Services provided to patient in accordance with Admission requirements found in Title 42 Section 412.3 of the Code of Federal Regulations Patient History Date of Service: 01/24/21 Reason for admission: Dehydrated/hypernatremia/acute kidney injury History of Present Illness: Patient is a 65-year-old gentleman who came to the hospital with acute kidney injury. Patient family has been deciding whether to do a PEG tube for proceed with hospice. Patient is not able to swallow well. He has dysphagia after suffering a stroke. Patient has not recovered. He came into the hospital severely dehydrated. He will be hydrated and will talk with family regarding plan of care. Family has wanted patient be a full code but according to nursing staff patient has declined quite significantly. He may benefit from comfort measures. Would discuss this with family as well as PEG tube option. Allergies No Known Allergies Allergy (Verified 01/03/21 00:05) Home Medications: Carvedilol [Coreg] 12.5 mg PO BID 01/03/21 Cholecalciferol (Vitamin D3) [Vitamin D3] 1 cap PO Q7D 01/03/21 Folic Acid 1 mg PO DAILY 01/03/21 Hydralazine HCl 100 mg PO Q8H 01/03/21 Mirtazapine [Remeron*] 45 mg PO BEDTIME 01/03/21 Risperidone [Risperdal] 2 mg PO BID 01/03/21 Sennosides [Senna] 1 tab PO DAILY 01/03/21 Terazosin HCl 2 mg PO BEDTIME 01/03/21 Thiamine HCl 100 mg PO DAILY 01/03/21 Zinc Amino Acid Chelate [Zinc] 50 mg PO DAILY 01/03/21 FLUCONAZOLE 200mg IVPB [Diflucan 200 MG IVPB (PREMIX)*] 200 mg IV DAILY #10 bag 01/12/21 Aspirin [Aspirin EC 81 MG] 81 mg PO Q48H 01/24/21 Docusate Sodium 100 mg PO DAILY 01/24/21 - Past Medical/Surgical History Diabetic: No -: CVA with resulting dysphagia -: Hypertension Past Surgical History: Unable to obtain Psychosocial/ Personal History: Patient currently resides in skilled nursing, prior lived with sister. - Family History Father Family History: Reviewed- Non-Contributory - Social History Smoking Status: Unknown if ever smoked Alcohol use: No CD- Drugs: No Caffeine use: No Review of Systems 10-point ROS is otherwise unremarkable Physical Examination - Vital Signs Temperature: 100 F Blood Pressure: 149/76 Pulse: 80 Respirations: 20 Pulse Ox (%): 90 - Physical Exam General: Alert, In no apparent distress, Oriented x3 Respiratory: Clear to auscultation bilaterally, Normal air movement Cardiovascular: Regular rate/rhythm, Normal S1 S2, No murmurs Gastrointestinal: Normal bowel sounds, Soft and benign, Non-distended, No tenderness Musculoskeletal: No clubbing, No swelling, No tenderness Neurological: Normal gait, Normal speech, Normal strength at 5/5 x4 extr, Normal tone, Sensation intact, Cranial nerves 3-12 intact - Studies Laboratory Data (last 24 hrs) 01/24/21 15:56: Sodium 153 H, Potassium 4.7, BUN 71 H, Creatinine 3.83 H, Glucose 102 01/24/21 15:28: WBC 7.30 D, Hgb 11.2 L, Hct 35.0 L D, Plt Count 359 Assessment & Plan - Problems (Diagnosis) (1) ARF (acute renal failure) Current Visit: No Status: Acute (2) Aspiration pneumonia Current Visit: No Status: Acute (3) CVA (cerebral vascular accident) Current Visit: No Status: Acute (4) HTN (hypertension) Current Visit: No Status: Acute (5) Oropharyngeal dysphagia Current Visit: No Status: Acute - Plan Plan: 1. Continue with IV hydration 2. Monitor potassium level 3. Monitor renal function 4. Monitor sodium level closely 5. Discuss with family regarding hospice versus PEG tube 6. Anti-platelet therapy and statin therapy 7. GI and DVT prophylaxis Discharge Plan: Long Term Plan to discharge in: Greater than 2 days - Advance Directives Does patient have a Living Will: No Does patient have a Durable POA for Healthcare: No - Code Status/Comfort Care Code Status Assessed: Yes Code Status: Full Code Critical Care: No Time Spent Managing PTS Care (In Minutes): 40
[2021-01-25] MEDS ORDERED: SCOPOLAMINE HYDROBROMIDE PATCH TD ONE (11:05)
[2021-01-25] MEDS ORDERED: CLINDAMYCIN INJ 600 MG in NA CHLORIDE 0.9% 50 ML IV ONE (11:23)
[2021-01-25] MEDS ORDERED: ALBUMIN HUMAN 25% 50 ML IV ONE (11:28)
--- NOTE | 2021-01-25 11:42 | RAD REPORT ---
EXAM DESCRIPTION: RAD - Chest Single View - 01/25/2021 11:31 am CLINICAL HISTORY: pneumonia Chest pain. COMPARISON: Chest Single View dated 01/24/2021; Chest Single View dated 01/16/2021; Chest Single View da gabriel 01/09/2021; Abdomen 1 View (KUB) dated 01/06/2021 FINDINGS: Portable technique limits examination quality. The lungs are mildly emphysematous but clear. The heart is normal in size. Right-sided PICC line has tip in SVC. IMPRESSION: Mild COPD.
[2021-01-25] MEDS: FLUCONAZOLE 200mg IVPB 200 MG/100 ML BAG IV SCH (11:43)
[2021-01-25] MEDS: D5W 1,000 ML IV SCH (11:43)
[2021-01-25] MEDS: METHYLPREDNISOLONE 125 MG INJ IV SCH ×3 (11:44→23:58)
[2021-01-25] MEDS ORDERED: PIPER/TAZO/NS 2.25gm 2.25 GM/50 ML BAG IVPB SCH (12:00)
[2021-01-25] MEDS ORDERED: PIPER/TAZO/NS 3.375gm 3.375 GM/100 ML BAG IVPB SCH (12:00)
[2021-01-25] MEDS: IPRATROPIUM BROM 0.5MG/2.5ML NEB SCH ×3 (12:50→20:45)
[2021-01-25] MEDS: ALBUTEROL 2.5 MG/3 ML NEB SOL NEB SCH ×3 (12:50→20:45)
[2021-01-25] MEDS: ACETYLCYST 20% 4 ML VIAL IH SCH ×3 (12:50→20:45)
[2021-01-25] MEDS ORDERED: D5W 1,000 ML IV SCH (13:00)
[2021-01-25] MEDS ORDERED: IPRATROPIUM BROM 0.5MG/2.5ML NEB SCH (14:00)
[2021-01-25] MEDS ORDERED: ALBUTEROL 2.5 MG/3 ML NEB SOL NEB SCH (14:00)
[2021-01-25] MEDS: PIPER/TAZO/NS 2.25gm 2.25 GM/50 ML BAG IVPB SCH ×3 (14:52→23:30)
[2021-01-25] MEDS ORDERED: ALBUTEROL 2.5 MG/3 ML NEB SOL ONE ×2 (15:30→20:18)
[2021-01-25] MEDS ORDERED: IPRATROPIUM BROM 0.5MG/2.5ML ONE ×2 (15:30→20:18)
[2021-01-25] MEDS ORDERED: METHYLPREDNISOLONE 40 MG INJ ONE (17:59)
[2021-01-26] MEDS ORDERED: METHYLPREDNISOLONE 125 MG INJ ONE ×2 (00:02→06:02)
[2021-01-26] MEDS: ACETYLCYST 20% 4 ML VIAL IH SCH ×2 (02:00→07:45)
[2021-01-26] MEDS: ALBUTEROL 2.5 MG/3 ML NEB SOL NEB SCH ×4 (02:00→20:35)
[2021-01-26] MEDS: IPRATROPIUM BROM 0.5MG/2.5ML NEB SCH ×3 (02:00→15:10)
[2021-01-26] MEDS ORDERED: IPRATROPIUM BROM 0.5MG/2.5ML ONE ×3 (02:04→15:26)
[2021-01-26] MEDS ORDERED: ALBUTEROL 2.5 MG/3 ML NEB SOL ONE ×4 (02:04→20:49)
[2021-01-26] MEDS: PIPER/TAZO/NS 2.25gm 2.25 GM/50 ML BAG IVPB SCH ×3 (05:48→17:45)
[2021-01-26] MEDS: METHYLPREDNISOLONE 125 MG INJ IV SCH ×3 (05:48→17:45)
--- NOTE | 2021-01-26 07:28 | P.PN ---
Subjective Date of Service: 01/25/21 Patient was congested. Apparently around 830 he has some mucous plugging. Patient became hypoxic and required non-rebreather. I assess the patient and we did some deep suctioning. Were able to get a lot of mucus suctioned out. Patient oxygen saturations improved. However, patient was still requiring non- rebreather so decided to move to ICU to make sure he stabilized. Spoke with family and they want patient be a full code as well as PEG tube placement. We do not have GI acid polymerization operator but I will speak with GI to see if that is a possibility. Will also put patient on medication to prevent secretions. Will do a scopolamine patch as well as neb treatments and Mucomyst nebulizer treatment. Review of Systems 10-point ROS is otherwise unremarkable Physical Examination - Vital Signs Temperature: 100 F Blood Pressure: 149/76 Pulse: 80 Respirations: 20 Pulse Ox (%): 90 - Physical Exam General: Other (Lethargic and stares off into space) Respiratory: Diminished, Other (Upper airway congestion) Cardiovascular: Regular rate/rhythm, Normal S1 S2, Systolic murmur Gastrointestinal: Normal bowel sounds, Soft and benign, Non-distended, No tenderness Musculoskeletal: No clubbing, No swelling, No tenderness Neurological: Other (Patient does not really respond much urologically. He does really follow my commands. He stares off into space. ) - Studies Medications List Reviewed: Yes Assessment & Plan - Problems (Diagnosis) (1) ARF (acute renal failure) Current Visit: No Status: Acute (2) Aspiration pneumonia Current Visit: No Status: Acute (3) CVA (cerebral vascular accident) Current Visit: No Status: Acute (4) HTN (hypertension) Current Visit: No Status: Acute (5) Oropharyngeal dysphagia Current Visit: No Status: Acute (6) Malnourished Current Visit: Yes Status: Acute - Plan Plan: 1. Continue with IV hydration 2. Albuterol and Atrovent nebs along with Mucomyst nebs 3. Scopolamine patch; monitor rhythm 4. Repeat labs to monitor hydration status 5. Family wants patient to be a full code and also what up PEG tube placed. 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 Anti-platelet therapy and statin therapy 7. GI and DVT prophylaxis Discharge Plan: [facility] Plan to discharge in: Greater than 2 days - Advance Directives Does patient have a Living Will: No Does patient have a Durable POA for Healthcare: No - Code Status/Comfort Care Code Status: Full Code Critical Care: Yes Time Spent Managing PTS Care (In Minutes): 35
--- NOTE | 2021-01-26 07:36 | P.PN ---
Date of Service: 01/26/21 Subjective Patient respiratory status has improved. Secretions have diminished. On Venti mask at 40%. Will probably be able to transfer him to the general medical floor. Review of Systems 10-point ROS is otherwise unremarkable Physical Examination - Vital Signs Reviewed - Physical Exam General: Not really responding. Stares into space upon awakening Respiratory: Diminished, Other (Upper airway congestion) Cardiovascular: Regular rate/rhythm, Normal S1 S2, Systolic murmur Gastrointestinal: Normal bowel sounds, Soft and benign, Non-distended, No tenderness Musculoskeletal: No clubbing, No swelling, No tenderness Neurological: Other (Patient does not really respond much urologically. He does really follow my commands. He stares off into space. ) - Studies Medications List Reviewed: Yes Assessment & Plan - Problems (Diagnosis) (1) ARF (acute renal failure) Current Visit: No Status: Acute (2) Aspiration pneumonia Current Visit: No Status: Acute (3) CVA (cerebral vascular accident) Current Visit: No Status: Acute (4) HTN (hypertension) Current Visit: No Status: Acute (5) Oropharyngeal dysphagia Current Visit: No Status: Acute (6) Malnourished Current Visit: Yes Status: Acute - Plan Plan: Continue with plan of care as mentioned below 1. Continue with IV hydration 2. Albuterol and Atrovent nebs along with Mucomyst nebs 3. Scopolamine patch; monitor rhythm 4. Repeat labs to monitor hydration status 5. Family wants patient to be a full code and also what up PEG tube placed. 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 Anti-platelet therapy and statin therapy 7. GI and DVT prophylaxis Discharge Plan: Shelter Plan to discharge in: Greater than 2 days - Advance Directives Does patient have a Living Will: No Does patient have a Durable POA for Healthcare: No - Code Status/Comfort Care Code Status: Full Code Critical Care: no Time Spent Managing PTS Care (In Minutes): 35
[2021-01-26 09:19] LABS: Urine Appearance CLOUDY; Urine Blood NEGATIVE (NEG); Urine Color DK YELLOW; Urine Glucose NEGATIVE (NEG); Urine Protein 1+ (NEG); Urine Specific Gravity 1.015 (1.005-1.030); Urine pH 5.5 (5.0-7.0)
[2021-01-26 09:26] LABS: Urine Bilirubin 1+ (NEG)
[2021-01-26 09:27] LABS: Urine Microscopic Reflex ORDER UMIC
[2021-01-26 09:29] LABS: Urine Amorphous Sediment 2+ /HPF (NONE SEEN); Urine Bacteria <20 /HPF (NONE SEEN); Urine RBC <5 /HPF (NONE SEEN)
--- NOTE | 2021-01-26 10:10 | RAD REPORT ---
EXAM DESCRIPTION: US - Renal Ultrasound-Complete - 01/26/2021 9:33 am CLINICAL HISTORY: ERASMO COMPARISON: Renal Ultrasound-Complete dated 01/03/2021 FINDINGS: Exam is limited. Patient is unable to fully cooperate with the examination. Renal size has not changed from the January 03 study. Cortical thickness is normal. Echogenicity wit hin range of normal. No hydronephrosis or suspicious renal mass. A 12 mm cyst is identified lateral a spect of the right kidney, an area better visualized than on the January 03 study. No bladder wall thickening or mass. No intraluminal stone or mass. IMPRESSION: No hydronephrosis or suspicious renal mass. No other significant findings.
[2021-01-26 10:23] LABS: Urine Protein/Creatinine Ratio 1.37 ratio (<0.15)
[2021-01-26] MEDS: FLUCONAZOLE 200mg IVPB 200 MG/100 ML BAG IV SCH (10:45)
[2021-01-26] MEDS ORDERED: NA CHLORIDE 0.9% 1,000 ML IV ONE (11:07)
[2021-01-26] MEDS ORDERED: NA CHLORIDE 0.9% 1,000 ML ONE (11:30)
[2021-01-26] MEDS ORDERED: D5 0.45 NS 1,000 ML IV ONE ×2 (11:30→22:26)
[2021-01-26] MEDS ORDERED: METHYLPREDNISOLONE 40 MG INJ ONE ×2 (11:31→18:02)
[2021-01-26] MEDS ORDERED: D5 0.45 NS 1,000 ML IV SCH (12:00)
[2021-01-26 13:08] LABS: Albumin 1.7 g/dL (3.4-5.0); Phosphorus 5.6 mg/dL (2.5-4.9); Potassium 4.5 mmol/L (3.5-5.1)
[2021-01-26] MEDS: D5 0.45 NS 1,000 ML IV SCH ×2 (17:25→22:15)
--- NOTE | 2021-01-26 17:27 | P.CNS ---
Date of Consult: 01/26/21 Reason for Consult: Respiratory distress possible aspiration pneumonia Chief Complaint: Dehydrated/hypernatremia/acute kidney injury History of Present Illness: Patient is 65 years of age into the hospital with acute kidney injury he is a phasic history of stroke and may have progressed apparently was more talkative with previous visit to be have some wheezing and congestion Patient does not communicate been a significant deterioration of his renal function no evidence of pneumonia on the chest x-ray Allergies No Known Allergies Allergy (Verified 01/03/21 00:05) Home Medications: Carvedilol [Coreg] 12.5 mg PO BID 01/03/21 Cholecalciferol (Vitamin D3) [Vitamin D3] 1 cap PO Q7D 01/03/21 Folic Acid 1 mg PO DAILY 01/03/21 Hydralazine HCl 100 mg PO Q8H 01/03/21 Mirtazapine [Remeron*] 45 mg PO BEDTIME 01/03/21 Risperidone [Risperdal] 2 mg PO BID 01/03/21 Sennosides [Senna] 1 tab PO DAILY 01/03/21 Terazosin HCl 2 mg PO BEDTIME 01/03/21 Thiamine HCl 100 mg PO DAILY 01/03/21 Zinc Amino Acid Chelate [Zinc] 50 mg PO DAILY 01/03/21 FLUCONAZOLE 200mg IVPB [Diflucan 200 MG IVPB (PREMIX)*] 200 mg IV DAILY #10 bag 01/12/21 Aspirin [Aspirin EC 81 MG] 81 mg PO Q48H 01/24/21 Docusate Sodium 100 mg PO DAILY 01/24/21 - Past Medical/Surgical History Diabetic: No -: CVA with resulting dysphagia -: Hypertension -: PNA -: ARF Psychosocial/ Personal History: Patient currently resides [place], prior lived with sister. - Family History Father History Unknown: Yes Family History: Reviewed- Non-Contributory - Social History Smoking Status: Unknown if ever smoked Alcohol use: No CD- Drugs: No Caffeine use: No [facility] Review of Systems is unable to be obtained Physical Examination Temp Pulse Resp BP Pulse Ox 98.0 F 63 14 140/74 100 01/26/21 17:00 01/26/21 17:00 01/26/21 17:00 01/26/21 17:00 01/26/21 17:00 General: Other (Minimally responsive alk Lantus hands) Neck: Supple Respiratory: Expiratory wheezes Cardiovascular: No edema, Normal S1 S2 - Problems (1) Renal failure (ARF), acute on chronic Current Visit: Yes Status: Acute Plan: Patient is 65 years of age with prior history of stroke significant debilitation admitted with altered mental status acute on chronic renal failure schedule for a PEG tube chest x-rays clear patient is hypernatremic crisis suspect this all volume depletion normal white count has some wheezing no evidence of an infection can Dc all antibiotics increase patient's IV fluid oxygenation satisfactory Qualifiers: Acute renal failure type: unspecified
--- NOTE | 2021-01-26 20:08 | CON ---
Date of Consultation: 01/26/2021 Reason For Consultation: Elevated BUN and creatinine. History Of Present Illness: All of the information has been obtained from the record as the patient is nonverbal. This is a 65-year-old gentleman with significant past medical history of hypertension, hyperlipidemia, CVA, chronic kidney disease. The patient recently admitted to the hospital with failure to thrive with acute kidney injury. After hydration, creatinine was 4, trending down to 1.3, recovered. Patient discharged to the intermediate. In the intermediate, the patient started being poor intake, obtunded, poorly responsive. For that reason, the patient was sent back. Family decided to continue with full care and agreed with the PEG tube. Primary workup showed hypernatremia with sodium of 152 and elevation in BUN and creatinine. For that reason, we have been consulted. Over the night, we started the patient on hydration. The patient had good urine output. Past Medical History: Includes, 1. Hypertension. 2. Hyperlipidemia. 3. CVA. Home Medications: Include carvedilol, cholecalciferol, folic acid, hydralazine, trazodone, thiamine, fluconazole, aspirin, docusate. Allergies: NO KNOWN DRUGS ALLERGY. Social History: Lives in intermediate. Family History: None obtainable. Review of Systems: None obtainable. Physical Examination: Vital Signs: Blood pressure 135/60, pulse of 88. Chest: Clear to auscultation. Heart: S1, S2. Systolic murmur. Abdomen: Soft, nontender. Extremities: No edema. Neuro: Opens eyes spontaneously. No response. Laboratory Data: WBC 6.9, H and H 9/27.6, platelet 300. Sodium 152, potassium 4.5, bicarb 22, BUN 97, creatinine 4.7, calcium 8.5, phosphorus 5.6. Urinalysis negative for infection. PC ratio 1.3. Sodium 26, potassium 54. Current Medications: The patient on include Tylenol, fluconazole, ipratropium, Zofran, Zosyn. Assessment And Plan: 1. Acute kidney injury secondary to prerenal. I am going to bolus the patient with another liter, then place the patient on D5 half and we will monitor. If kidney function is not improving, the patient may need renal replacement therapy as his altered mental status could be secondary to uremia. We will follow up. 2. Hypertension, controlled, optimal, keep holding all AKRI inhibitor or ARB for the time being. 3. Anemia of chronic kidney disease with the presence of acute kidney injury. I am going to send for serum protein electrophoresis. 4. Altered mental status secondary to dehydration as above. 5. Hypernatremia secondary to poor intake resume D5 half bolus with normal saline and we will follow up. 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
[2021-01-27] MEDS: D5 0.45 NS 1,000 ML IV SCH ×3 (00:05→06:45)
[2021-01-27] MEDS: PIPER/TAZO/NS 2.25gm 2.25 GM/50 ML BAG IVPB SCH ×3 (00:36→11:02)
[2021-01-27] MEDS: METHYLPREDNISOLONE 125 MG INJ IV SCH ×3 (00:36→11:03)
[2021-01-27] MEDS ORDERED: METHYLPREDNISOLONE 125 MG INJ ONE ×2 (00:53→05:56)
[2021-01-27] MEDS: ALBUTEROL 2.5 MG/3 ML NEB SOL NEB SCH ×4 (02:00→19:15)
[2021-01-27] MEDS ORDERED: D5 0.45 NS 1,000 ML IV ONE (05:52)
[2021-01-27 06:12] LABS: Albumin 1.6 g/dL (3.4-5.0); Ferritin 1338.3 ng/mL (26-388); Folic Acid, (Folate) 16.9 ng/mL (3.1-17.5); Phosphorus 4.3 mg/dL (2.5-4.9); Potassium 3.9 mmol/L (3.5-5.1); Thyroid Stimulating Hormone 0.19 uIU/mL (0.360-3.740); Uric Acid 12.9 mg/dL (3.5-7.2)
[2021-01-27] MEDS ORDERED: ALBUTEROL 2.5 MG/3 ML NEB SOL ONE ×2 (08:43→13:58)
[2021-01-27] MEDS: HYDRALAZINE HCL 20 MG/ML VIAL IV PRN ×2 (10:11→23:27)
[2021-01-27] MEDS: FLUCONAZOLE 200mg IVPB 200 MG/100 ML BAG IV SCH (11:03)
[2021-01-27] MEDS ORDERED: METHYLPREDNISOLONE 40 MG INJ ONE (11:14)
[2021-01-27] MEDS: D5W 1,000 ML IV SCH (13:00)
--- NOTE | 2021-01-27 13:14 | P.PN ---
Subjective Date of Service: 01/27/21 Chief Complaint: Dehydrated/hypernatremia/acute kidney injury Condition stable he still has acute renal failure with hypernatremia Review of Systems is unable to be obtained Physical Examination - Vital Signs Temperature: 98.1 F Blood Pressure: 166/69 Pulse: 58 Respirations: 14 Pulse Ox (%): 100 - Studies Microbiology Data (last 24 hrs): 01/24/21 15:55 Catheterized Urine [place] Count - Final No growth. 01/24/21 15:55 Catheterized Urine - Final No growth. Medications List Reviewed: Yes Assessment & Plan - Problems (Diagnosis) (1) Renal failure (ARF), acute on chronic Current Visit: Yes Status: Acute Plan: No change in patient's responsiveness acute renal failure hypernatremia Dc steroids and antibiotics is no evidence of sepsis may be affecting his kidney function discuss with Nephrology will increase IV fluids most likely all is pre renal ultrasound negative for obstruction blood pressure elevated start tube feeds evaluate for a PEG Qualifiers: Acute renal failure type: unspecified
--- NOTE | 2021-01-27 14:14 | P.PN ---
Subjective Date of Service: 01/27/21 Chief Complaint: Dehydrated/hypernatremia/acute kidney injury Subjective A 65 Y.o MAN [place] resident , admitted with failuire to htrive elevated sodium and Cr on admission Today Cr elevated but stable NA 152, will change fluid to D5W will insert [place] tried to contact family twice , with no rsponse , voicemail left Physical exam general: alert, not oriented Neck; Supple, No elevated JVD hear: RRR, normal S1,2 no murmur or rub Chest: CTAB, no rales or wheezes Abdomen: Soft , Nt Extremities No edema or ulcer A/p Acute kidney injury possibly due to ATN didnt repsond to IVF US : no hydro will insert hackett I/O elevated Bun likely due to ERASMO and steroids no indication for renal replacement at this time , but if cr cont to trend up will not recommend HD as the risk outweigh the benefits HTN Cont IV Meds hypernatremia due to dehydration will change fluid to D5W Anemia of chronic kidney disease with the presence of acute kidney injury. F/U serum protein electrophoresis. failure to thrive plan for PEG placement total time spent 50min Physical Examination - Vital Signs Temperature: 98.1 F Blood Pressure: 166/69 Pulse: 58 Respirations: 14 Pulse Ox (%): 100 - Studies Medications List Reviewed: Yes
--- NOTE | 2021-01-27 16:57 | RAD REPORT ---
EXAM DESCRIPTION: RAD - Abdomen 1 View (KUB) - 01/27/2021 4:51 pm CLINICAL HISTORY: Device placement Dobhoff tube placement FINDINGS: A Dobhoff tube is coiled within the gastric fundus.
[2021-01-28] MEDS: ALBUTEROL 2.5 MG/3 ML NEB SOL NEB SCH ×4 (01:00→20:00)
[2021-01-28] MEDS: D5W 1,000 ML IV SCH ×3 (02:16→15:47)
[2021-01-28 07:45] LABS: Albumin 1.8 g/dL (3.4-5.0); Phosphorus 3.4 mg/dL (2.5-4.9); Potassium 3.3 mmol/L (3.5-5.1)
[2021-01-28] MEDS: SCOPOLAMINE HYDROBROMIDE PATCH TD SCH (08:36)
[2021-01-28] MEDS: HYDRALAZINE HCL 20 MG/ML VIAL IV PRN (09:27)
--- NOTE | 2021-01-28 10:33 | RAD REPORT ---
EXAM DESCRIPTION: RAD - Chest Single View - 01/28/2021 5:58 am CLINICAL HISTORY: Possible pneumonia Chest pain. COMPARISON: Abdomen 1 View (KUB) dated 01/27/2021; Chest Single View dated 01/25/2021; Chest Single Vi ew dated 01/24/2021; Chest Single View dated 01/16/2021 FINDINGS: Portable technique limits examination quality. The lungs are emphysematous but grossly clear. The heart is normal in size. No displaced fractures.Ri ght-sided PICC line has tip in the SVC. Enteric tube coils in the stomach.
--- NOTE | 2021-01-28 12:00 | P.PN ---
Date of Service: 01/27/21 Subjective Patient clinically doing much better. He is awake and following commands. Nurses state he is responding to them with 1 word answers. Overall he appears much better than on admission. Spoke with family and spoke with GI and they will do PEG tube on Saturday morning. We will get consent per nursing staff. Review of Systems 10-point ROS is otherwise unremarkable Physical Examination - Vital Signs Reviewed - Physical Exam General: Patient seems to be more responsive and he did try to squeeze my hand on command Respiratory: Upper airway congestion but mostly cleared Cardiovascular: Regular rate/rhythm, Normal S1 S2, Systolic murmur Gastrointestinal: Normal bowel sounds, Soft and benign, Non-distended, No tenderness Musculoskeletal: No clubbing, No swelling, No tenderness Neurological: Awake is starting to follow commands - Studies Medications List Reviewed: Yes Assessment & Plan - Problems (Diagnosis) (1) ARF (acute renal failure) Current Visit: No Status: Acute (2) Aspiration pneumonia Current Visit: No Status: Acute (3) CVA (cerebral vascular accident) Current Visit: No Status: Acute (4) HTN (hypertension) Current Visit: No Status: Acute (5) Oropharyngeal dysphagia Current Visit: No Status: Acute (6) Malnourished Current Visit: Yes Status: Acute - Plan Plan: Continue with plan of care as mentioned below 1. Continue with IV hydration; monitor renal function closely 2. Continue with neb treatments. Mucomyst for secretions 3. Scopolamine patch; monitor rhythm 4. Repeat labs to monitor hydration status 5. Arrange for PEG tube placement 6. Anti-platelet therapy and statin therapy 7. GI and DVT prophylaxis Discharge Plan: Correction Plan to discharge in: Greater than 2 days - Advance Directives Does patient have a Living Will: No Does patient have a Durable POA for Healthcare: No - Code Status/Comfort Care Code Status: Full Code Critical Care: no Time Spent Managing PTS Care (In Minutes): 35
[2021-01-28] MEDS ORDERED: ALBUMIN HUMAN 25% 100 ML IV ONE (14:54)
[2021-01-28] MEDS ORDERED: ENOXAPARIN 30 MG/0.3 ML SQ SCH (17:00)
--- NOTE | 2021-01-28 17:51 | P.PN ---
Subjective Date of Service: 01/28/21 Chief Complaint: Dehydrated/hypernatremia/acute kidney injury Subjective A 65 Y.o MAN [place] resident , admitted with failuire to htrive elevated sodium and Cr on admission Today Bun and cr improving will increase D5W plan for PEG placement tomorrow Physical exam general: alert, not oriented Neck; Supple, No elevated JVD hear: RRR, normal S1,2 no murmur or rub Chest: CTAB, no rales or wheezes Abdomen: Soft , Nt Extremities No edema or ulcer A/p Acute kidney injury possibly due to ATN didnt repsond to IVF US : no hydro Cont hackett I/O elevated Bun likely due to ERASMO and steroids no indication for renal replacement at this time HTN Cont IV Meds dysphagia plan for PEG placement tomorrow hypernatremia due to dehydration will change fluid to D5W Anemia of chronic kidney disease with the presence of acute kidney injury. F/U serum protein electrophoresis. failure to thrive plan for PEG placement total time spent 50min Physical Examination - Vital Signs Temperature: 97.8 F Blood Pressure: 142/68 Pulse: 51 Respirations: 16 Pulse Ox (%): 98 - Studies Medications List Reviewed: Yes
[2021-01-29] MEDS: ALBUTEROL 2.5 MG/3 ML NEB SOL NEB SCH ×5 (03:00→20:00)
[2021-01-29] MEDS: D5W 1,000 ML IV SCH ×3 (03:06→21:47)
[2021-01-29] MEDS ORDERED: ALBUTEROL 2.5 MG/3 ML NEB SOL ONE (06:43)
[2021-01-29 06:44] LABS: Phosphorus 2.7 mg/dL (2.5-4.9); Potassium 3.7 mmol/L (3.5-5.1)
[2021-01-29 08:00] LABS: Basophils % 0.3 % (0-1.3); Hematocrit 25.6 % (39.6-49.0); Lymphocytes % 8.7 % (15.3-44.8); MPV 10.2 fL (7.6-11.3); RBC Red Blood Cell Count 2.96 M/uL (4.33-5.43)
[2021-01-29 08:02] LABS: Protime INR 1.03
[2021-01-29 08:35] LABS: Blood Morphology Comment NOT SEEN (NOT SEEN); Platelet Estimate ADEQ; White Blood Cell Scan OK (OK)
[2021-01-29] MEDS ORDERED: NA CHLORIDE 0.9% 500 ML ONE (09:45)
[2021-01-29] MEDS ORDERED: propofoL 200 MG/20 ML VIAL IV ONE (09:53)
[2021-01-29] MEDS ORDERED: CEFAZOLIN/SWI 1gm 1 GM/10 ML SYR ONE (10:29)
--- NOTE | 2021-01-29 10:38 | ENDO RPT ---
[address], [address] EGD WITH PEG PROCEDURE REPORT EXAM DATE: 01/29/2021 PATIENT NAME: Drake Friend MR #: [id number] BIRTHDATE: 1955 ATTENDING: Gaetano Marquis Dr STATUS: inpatient TECHNICAL PROJECT COORDINATOR: Cherri Bunn RN and Abby Mathew RN INDICATIONS: The patient is a 65 yr old Male here for an EGD with PEG due to dysphagia and increased risk of malnutrition PROCEDURE PERFORMED: EGD with PEG placement EGD with biopsy MEDICATIONS: Per Anesthesia. TOPICAL ANESTHETIC: none CONSENT: The patient understands the risks and benefits of the procedure and understands that these risks include, but are not limited to: sedation, allergic reaction, infection, perforation and/or bleeding. Alternative means of evaluation and treatment include, among others: physical exam, x-rays, and/or surgical intervention. The patient elects to proceed with this endoscopic procedure. DESCRIPTION OF PROCEDURE: During intra-op preparation period all mechanical medical equipment was checked for proper function. Hand hygiene and appropriate measures for infection prevention was taken. After the risks, benefits and alternatives of the procedure were thoroughly explained, Informed consent was verified, confirmed and timeout was successfully executed by the treatment team. The patient was anesthetized with topical anesthesia and the EG-[id number] ([id number]) endoscope was introduced through the mouth and advanced to the second portion of the duodenum. The instrument was slowly withdrawn as the mucosa was fully examined. A small hiatal hernia was found Moderate Atrophic gastritis was found in the antrum. Multiple biopsies were obtained and sent to pathology. Duodenitis was found in the bulb of the duodenum. The stomach was then inflated with air, and by a combination of transillumination and manual palpation, the site for the gastrostomy tube placement was selected and marked on the anterior abdominal wall. The skin of the anterior abdomen was surgically prepped and draped with sterile towels. Utilizing strict sterile technique, the selected site was then anesthetized with 1% xylocaine by injection into the skin and subcutaneous tissue. A 1 cm incision was made through the skin and subcutaneous tissue, and the needle/cannula assembly was then passed through the abdominal wall and through the anterior wall of the stomach, maintaining visualization with the endoscope. A snare device previously placed through the instrument channel was then opened and placed around the cannula, the needle was removed, and the insertion wire was passed through the cannula and into the stomach lumen. The snare was then loosened from the cannula, and repositioned to snare the insertion wire. The snare was then pulled up to the endoscope distal tip, and the scope was then withdrawn bringing with it the snare and insertion wire. The insertion wire was then released from the snare, and then loop-attached to the PEG PULL gastrostomy tube. Using the pull technique, the G-tube was then pulled into place by traction on the insertion wire at the abdominal wall end. The G-tube insertion site was then cleansed once again, and the external bolster was placed over the tube to secure it to the abdominal wall. A sterile dressing was then applied, and the procedure terminated. Retroflexed views revealed a small hiatal hernia. The gastroscope was then slowly withdrawn and removed. ADVERSE EVENT: There were no complications. IMPRESSIONS: 1. Status post 20 Fr percutaneous endoscopic gastrostomy tube 2. Small hiatal hernia 3. Moderate atrophic gastritis in the antrum, s/p biopsies 4. Duodenitis in the bulb of the duodenum RECOMMENDATIONS: 1. begin PEG use in 3 hours 2. await biopsy results 3. acid suppression therapy REPEAT EXAM: Gaetano Marquis Dr eSigned: Gaetano Marquis Dr 01/29/2021 10:38 AM cc: Reina Velazquez CPT CODES: ICD9 CODES: PATIENT NAME: Drake Friend MR#: [id number]
--- NOTE | 2021-01-29 13:09 | P.PN ---
Subjective Date of Service: 01/29/21 Chief Complaint: Dehydrated/hypernatremia/acute kidney injury Subjective A 65 Y[place]o [place] resident , admitted with failuire to htrive elevated sodium and Cr on admission Today Bun and cr cont to improve Cont IVF S/P PEG placement Hb trending down, cont to monitor Physical exam general: alert, not oriented Neck; Supple, No elevated JVD hear: RRR, normal S1,2 no murmur or rub Chest: CTAB, no rales or wheezes Abdomen: Soft , Nt Extremities No edema or ulcer A/p Acute kidney injury possibly due to ATN didnt repsond to IVF US : no hydro Cont hackett I/O elevated Bun likely due to ERASMO and steroids no indication for renal replacement at this time HTN Cont IV Meds dysphagia S/P PEG placement hypernatremia due to dehydration cont D5W Anemia of chronic kidney disease with the presence of acute kidney injury. F/U serum protein electrophoresis. total time spent 50min Physical Examination - Vital Signs Temperature: 97.8 F Blood Pressure: 139/73 Pulse: 52 Respirations: 16 Pulse Ox (%): 97 - Studies Medications List Reviewed: Yes
--- NOTE | 2021-01-29 20:16 | CON ---
Date of Consultation: 01/29/2021 Reason For Consultation: Dysphagia with history of aspiration, status post stroke with protein-calor ie malnutrition. History Of Present Illness: This patient is a 65-year-old male with history of hypertension , stroke, and secondary dysphagia and aspiration pneumonia. The patient presented to the hospital wi th dehydration, hypernatremia, acute renal injury. The patient has been unable to eat since stroke i t appears and now he has had possible aspiration pneumonia by chart review. The patient's albumin is low at 1.6 to 2.0, indicative of protein-calorie malnutrition. He is anemic with a hemoglobin drop from 11.2 to 9.0 to 8.2, and he has acute renal failure in addition. Past Medical History: Significant for hypertension, stroke, secondary dysphagia, and now aspiration pneumonia. Medications: Include Coreg, vitamin D3, folate, hydralazine, Remeron, Risperdal, senna, terazosin, t hiamine, zinc, Diflucan, aspirin, Colace. Allergies: NKDA. Social History: No tobacco or alcohol by chart review. The patient unable to give history now due t o his stroke, inability to communicate. Physical Examination: Vital Signs: The patient is 5 feet 6 inches, 126 pounds, BMI of 20 kg/m squared. Temperature of 98. 3 degrees Fahrenheit, pulse 50, respirations 16, blood pressure 119/59, O2 saturation 99%. General: He is a thin male, lying in bed, in no acute distress. Unable to communicate with dysarthr ia and dysphagia. He has been able to move extremities well due to his stroke with paresis of his ex tremities. HEENT: Normocephalic, atraumatic. Anicteric. Pupils equal, round, reactive to light. Extraocular movements seemed to be intact. Oropharynx is somewhat dry. Neck: Supple. No masses. Respirations: Clear on anterior exam only. Cardiac: Regular rate and rhythm. No gallops or rubs. Abdomen: Positive bowel sounds. Soft, nontender, nondistended. No hepatosplenomegaly. Extremities: No clubbing, cyanosis, or edema. 1 to 2+ pulses. Neurologic: He is an unable to communicate well status post stroke. Can respond to pain and verbal stimuli. Unable to answer questions appropriately. Cannot speak status post stroke. Laboratory Data: The patient has a white count of 11.4, up from 6.9 yesterday; hemoglobin of 8.2, do wn from 11.2 on admission; hematocrit 25.6; MCV of 87; platelet count of 260; polys of 86%; lymphocyt es 9%; monocytes 5%. The patient has a PT of 11.9, INR of 1.03, PTT of 19.4. Sodium 146; potassium 3.7; chloride 112; bicarb 26; BUN of 87; creatinine of 3.38, yesterday it was 4.18, the day before it was 4.68 and 4.78, on admission it was 3.83; glucose is elevated at 142; calcium is 8.3; phosphorus 2.7; albumin 2.0 today, it has been as low as 1.6. UA showed 1+ bilirubin, 2+ amorphous sedimentation rate, 1+ total protein. Chest x-ray shows emphyse matous changes, but grossly clear; heart is normal size; PICC line in place. Impression: 1.Dysphagia with aspiration pneumonia, status post recent stroke. 2.Protein-calorie malnutrition. Albumin of 1.6 to 2.0. 3.Anemia. Hemoglobin of 11.2, down to 9.0, down 8.2 over the past 3 days. 4.Acute renal failure. 5.History of hypertension, stroke, and dysphagia. Recommendation: 1.Proceed with EGD with PEG. 2.IV fluids. 3.Prealbumin. 4.IV antibiotics prior to EGD with PEG. YAMILEX/KAREN Voice ID: [id number] Report ID: [id number]
[2021-01-30] MEDS: ALBUTEROL 2.5 MG/3 ML NEB SOL NEB SCH ×3 (01:10→14:00)
[2021-01-30 04:34] LABS: Albumin 1.9 g/dL (3.4-5.0); Phosphorus 2.8 mg/dL (2.5-4.9); Potassium 3.8 mmol/L (3.5-5.1)
[2021-01-30] MEDS: D5W 1,000 ML IV SCH ×2 (05:58→16:29)
[2021-01-30] MEDS: HYDRALAZINE HCL 20 MG/ML VIAL IV PRN ×2 (06:08→16:29)
--- NOTE | 2021-01-30 07:27 | P.PN ---
Date of Service: 01/28/21 Subjective patient is doing well with no new complaints. Awaiting PEG tube placement in the morning. Spoke with Dr. Marquis, and he was agreeable to do this Saturday. We appreciate his assistance in patient's care. NPO after midnight. Review of Systems 10-point ROS is otherwise unremarkable Physical Examination - Vital Signs Reviewed - Physical Exam General: Patient seems to be more responsive and he did try to squeeze my hand on command Respiratory: Upper airway congestion but mostly cleared Cardiovascular: Regular rate/rhythm, Normal S1 S2, Systolic murmur Gastrointestinal: Normal bowel sounds, Soft and benign, Non-distended, No tenderness Musculoskeletal: No clubbing, No swelling, No tenderness Neurological: Awake is starting to follow commands - Studies Medications List Reviewed: Yes Assessment & Plan - Problems (Diagnosis) (1) ARF (acute renal failure) Current Visit: No Status: Acute (2) Aspiration pneumonia Current Visit: No Status: Acute (3) CVA (cerebral vascular accident) Current Visit: No Status: Acute (4) HTN (hypertension) Current Visit: No Status: Acute (5) Oropharyngeal dysphagia Current Visit: No Status: Acute (6) Malnourished Current Visit: Yes Status: Acute - Plan Plan: Continue with plan of care as mentioned below 1. Continue with IV hydration; monitor renal function closely; Improving at this time 2. Continue with neb treatments. Mucomyst for secretions 3. Scopolamine patch; monitor rhythm 4. Repeat labs to monitor hydration status 5. Arrange for PEG tube placement in the morning 6. Anti-platelet therapy and statin therapy 7. GI and DVT prophylaxis Discharge Plan: Custodial Plan to discharge in: Greater than 2 days - Advance Directives Does patient have a Living Will: No Does patient have a Durable POA for Healthcare: No - Code Status/Comfort Care Code Status: Full Code Critical Care: no Time Spent Managing PTS Care (In Minutes): 35
--- NOTE | 2021-01-30 07:31 | P.PN ---
Date of Service: 01/29/21 Subjective patient clinically doing well. Gi placed PEG tube this morning and patient is doing well with this. Anticipate discharge over the next 48 hours. Continue monitoring renal function closely. Review of Systems 10-point ROS is otherwise unremarkable Physical Examination - Vital Signs Reviewed - Physical Exam General: Patient seems to be more responsive and he did try to squeeze my hand on command Respiratory: Upper airway congestion but mostly cleared Cardiovascular: Regular rate/rhythm, Normal S1 S2, Systolic murmur Gastrointestinal: Normal bowel sounds, Soft and benign, Non-distended, No tenderness Musculoskeletal: No clubbing, No swelling, No tenderness Neurological: Awake is starting to follow commands - Studies Medications List Reviewed: Yes Assessment & Plan - Problems (Diagnosis) (1) ARF (acute renal failure) Current Visit: No Status: Acute (2) Aspiration pneumonia Current Visit: No Status: Acute (3) CVA (cerebral vascular accident) Current Visit: No Status: Acute (4) HTN (hypertension) Current Visit: No Status: Acute (5) Oropharyngeal dysphagia Current Visit: No Status: Acute (6) Malnourished Current Visit: Yes Status: Acute - Plan Plan: Continue with plan of care as mentioned below 1. Start tube feedings and we can wean off of IV hydration starting in the morning. 2. Continue with neb treatments. Mucomyst for secretions 3. Scopolamine patch; monitor rhythm 4. Repeat labs to monitor hydration status 5. Arrange for PEG tube placement in the morning 6. Anti-platelet therapy and statin therapy ; peg tube feeding; strict blood pressure control 7. GI and DVT prophylaxis
[2021-01-30] MEDS: carvediloL 12.5 MG TAB FT SCH ×2 (09:24→17:50)
[2021-01-30] MEDS: ASPIRIN 81 MG CHEWABLE TABLET FT SCH (09:24)
--- NOTE | 2021-01-30 16:55 | P.PN ---
Subjective Date of Service: 01/30/21 Chief Complaint: Dehydrated/hypernatremia/acute kidney injury Subjective: Doing well Physical Examination - Vital Signs Temperature: 99 F Blood Pressure: 138/81 Pulse: 54 Respirations: 20 Pulse Ox (%): 100 - Studies Medications List Reviewed: Yes Assessment & Plan Discharge Plan: Other (SNF) Plan to discharge in: Greater than 2 days Physician Review Additional Text: Physical exam: Heart: regular rate rhythm Lungs: Clear to auscultation Abdomen: Peg tube in place. Extremities: No edema noted Impression: Dysphagia with aspiration pneumonia status post recent CVA Hypertension Acute on chronic renal disease stage IV Anemia of chronic disease Plan: Dysphagia with aspiration pneumonia status post recent CVA: PEG tube done yesterday. Continue IV fluids. Will check with GI in when PEG tube can be re- initiated. Spoke with social work associate about the patient returning to skilled facility once patient tolerating PEG tube feeds. Continue with CVA medications. Will discuss with Pulmonary. Hypertension: Continue medication. Acute on chronic renal disease stage IV: Continue IV fluids-D5W. Will discuss with nephrology. Continue nutrition. Continue monitor renal function. Anemia of chronic disease: Will monitor closely. Maintain hemoglobin above 7.0. Time Spent Managing Pts Care (In Minutes): 55
[2021-01-30] MEDS ORDERED: ALBUTEROL 2.5 MG/3 ML NEB SOL NEB PRN (17:00)
[2021-01-30] MEDS: ATORVASTATIN 40 MG TAB FT SCH (20:32)
[2021-01-31] MEDS: D5W 1,000 ML IV SCH ×2 (02:33→03:47)
--- NOTE | 2021-01-31 04:04 | PN ---
Date of Progress Note: 01/30/2021 Chief Complaint: Abnormal renal function test, hypernatremia, acute kidney injury, dehydration. Subjective: The patient is a 65-year-old man with history of failure to thrive. He was found to have elevated sodium level and creatinine on admission, acute kidney injury was due to prerenal azotemia. Patient was started on IV fluids and he received PEG during this admission. Hemoglobin is trending down. The patient has acute anemia. Review of Systems: Cannot be obtained. The patient is alert although he does not answer questions. He is not oriented. Lungs: Diminished breath sounds at bases. Heart: S1, S2. Abdomen: Soft, benign. Extremities: No edema. No ulcers. Impression And Plan: 1. Acute kidney injury, possibly due to acute tubular necrosis secondary to renal hypoperfusion, no evidence of nonsteroidal anti-inflammatory medication exposure. The patient will continue Gaona catheter. Ultrasound did not show hydronephrosis. 2. ERASMO on CKD 3, high BUN and creatinine ratio, BUN and creatinine are elevated secondary to acute kidney injury with superimposed CKD3. Monitor renal function and electrolytes. Avoid NSAID. Monitor electrolytes and azotemia, fluid balance and urine output. Continue IV fluids, adjust IV fluids according to lab results. 3. Hypertension. Continue blood pressure medication. 4. Dysphagia. Status post PEG tube placement. 5. Hypernatremia. Continue IV fluids with D5W. Monitor electrolytes with the fluid rate accordingly. KAREY/KAREN Voice ID: [id number] Report ID: [id number] EVE
[2021-01-31] MEDS: carvediloL 12.5 MG TAB FT SCH ×2 (05:29→18:16)
[2021-01-31 05:44] LABS: Absolute Lymphocytes (CBC) 0.6 K/uL (0.7-4.9); Basophils % 0.2 % (0-1.3); Hematocrit 23.2 % (39.6-49.0); Lymphocytes % 8.3 % (15.3-44.8); MPV 10.2 fL (7.6-11.3); RBC Red Blood Cell Count 2.72 M/uL (4.33-5.43)
[2021-01-31 05:53] LABS: Albumin 1.8 g/dL (3.4-5.0); Magnesium 1.9 mg/dL (1.8-2.4)
[2021-01-31] MEDS: HYDRALAZINE HCL 20 MG/ML VIAL IV PRN (07:55)
[2021-01-31] MEDS: SCOPOLAMINE HYDROBROMIDE PATCH TD SCH (07:56)
[2021-01-31] MEDS: ASPIRIN 81 MG CHEWABLE TABLET FT SCH (07:56)
[2021-01-31 09:22] LABS: Vitamin D 1,25-Dihydroxy Total <8 pg/mL (18-72); Vitamin D,1,25-OH2, D2 <8 pg/mL
--- NOTE | 2021-01-31 12:59 | P.PN ---
Subjective Date of Service: 01/31/21 Primary Care Provider: unknown Chief Complaint: Dehydrated/hypernatremia/acute kidney injury Subjective: Improving Physical Examination - Vital Signs Temperature: 98.5 F Blood Pressure: 162/81 Pulse: 55 Respirations: 20 Pulse Ox (%): 98 - Studies Medications List Reviewed: Yes Assessment & Plan Discharge Plan: Halfway (SNF) Plan to discharge in: 48 Hours Physician Review Additional Text: Physical exam: Heart: regular rate rhythm Lungs: Clear to auscultation Abdomen: Peg tube in place. Extremities: No edema noted Impression: Dysphagia with aspiration pneumonia status post recent CVA status post PEG tube placement Hypertension Acute on chronic renal disease stage IV due to poor intake Anemia of chronic disease Plan: Dysphagia with aspiration pneumonia status post recent CVA status post PEG tube placement: Patient tolerating PEG tube feeds. Will have dietary monitor and address. Will see if they can transition to bolus feeds. Will adjust IV fluids. Will discuss with nephrology. Renal function improving back to baseline. Will monitor hemoglobin closely. Physical therapy and occupational therapy ordered. Case discussed with family. Family desires patient to go back to [facility] for skilled placement. Will address with manager social responsibility. No longer on antibiotic therapy as recommended by pulmonology. Anticipate improvement over the next 2-3 days. Hypertension: Continue medication. Acute on chronic renal disease stage IV due to poor intake: Will change IV fluids to half-normal saline. Will discuss with nephrology. Continue nutrition. Continue monitor renal function. Anemia of chronic disease: Will monitor closely. Maintain hemoglobin above 7.0. Recheck hemoglobin today. May require transfusion if hemoglobin less than 7. Time Spent Managing Pts Care (In Minutes): 55
[2021-01-31] MEDS: NACHLORIDE 0.45% 1,000 ML IV SCH (13:22)
[2021-01-31 14:04] LABS: Hematocrit 23.6 % (39.6-49.0)
--- NOTE | 2021-01-31 18:42 | P.PN ---
Subjective Date of Service: 02/02/21 Primary Care Provider: unknown Chief Complaint: Dehydrated/hypernatremia/acute kidney injury Subjective: Improving (Tolerating TFs via PEG tube.) Physical Examination - Vital Signs Temperature: 98.8 F Blood Pressure: 158/80 Pulse: 68 Respirations: 20 Pulse Ox (%): 98 - Studies Medications List Reviewed: Yes Assessment And Plan - Current Problems (Diagnosis) (1) Protein calorie malnutrition Current Visit: Yes Status: Acute (2) Aspiration pneumonia Current Visit: No Status: Acute (3) CVA (cerebral vascular accident) Current Visit: No Status: Acute (4) Oropharyngeal dysphagia Current Visit: No Status: Acute - Plan REC: 1) continue TFs 2) await EGD pathology Physician Review Additional Text: Physical exam: Heart: regular rate rhythm Lungs: Clear to auscultation Abdomen: Peg tube in place. Extremities: No edema noted Impression: Dysphagia with aspiration pneumonia status post recent CVA status post PEG tube placement Hypertension Acute on chronic renal disease stage IV due to poor intake Anemia of chronic disease Plan: Dysphagia with aspiration pneumonia status post recent CVA status post PEG tube placement: Patient tolerating PEG tube feeds. Will have dietary monitor and address. Will see if they can transition to bolus feeds. Will adjust IV fluids. Will discuss with nephrology. Renal function improving back to baseline. Will monitor hemoglobin closely. Physical therapy and occupational therapy ordered. Case discussed with family. Family desires patient to go back to snf for skilled placement. Will address with social work associate. No longer on antibiotic therapy as recommended by pulmonology. Anticipate improvement over the next 2-3 days. Hypertension: Continue medication. Acute on chronic renal disease stage IV due to poor intake: Will change IV fluids to half-normal saline. Will discuss with nephrology. Continue nutrition. Continue monitor renal function. Anemia of chronic disease: Will monitor closely. Maintain hemoglobin above 7.0. Recheck hemoglobin today. May require transfusion if hemoglobin less than 7.
[2021-01-31] MEDS: ATORVASTATIN 40 MG TAB FT SCH (20:26)
[2021-02-01] MEDS: NACHLORIDE 0.45% 1,000 ML IV SCH ×3 (01:00→20:59)
--- NOTE | 2021-02-01 02:53 | PN ---
Date of Progress Note: 01/31/2021 Chief Complaint: Abnormal kidney function test, hypernatremia, dehydration, acute kidney injury. History Of Present Illness: The patient is a 65-year-old man with history of failure to thrive. He was found to have elevated sodium level, creatinine level was elevated, and the patient was diagnosed with acute kidney injury with prerenal azotemia, nonoliguric ATN. The patient was started on IV flu ids to stabilize the hypernatremia. Subsequently, he had a PEG tube placement during this admission and started on tube feeding. Review of Systems: Cannot be obtained. The patient is alert, although he does not answer questions. He is not oriented . Physical Examination: Lungs: Diminished breath sounds at bases. Heart: S1, S2. Abdomen: Soft, benign. Extremities: No ulcers. Impression And Plan: 1.Acute kidney injury due to acute tubular necrosis secondary to renal hypoperfusion. No evidence o f nonsteroidal anti-inflammatory medication. The patient will continue Gaona catheter to monitor uri ne output. Ultrasound did not show hydronephrosis. There is no evidence of obstructive uropathy. 2.Hypertension. Continue blood pressure medication. 3.Dysphagia. Continue PEG feeding. 4.Hypernatremia. Continue IV fluids with D5W and adjust fluids according to lab results. EB/MODL Voice ID: [id number] Report ID: [id number]
[2021-02-01 05:25] LABS: Absolute Lymphocytes (CBC) 0.7 K/uL (0.7-4.9); Basophils % 0.2 % (0-1.3); Hematocrit 23.5 % (39.6-49.0); Lymphocytes % 8.4 % (15.3-44.8); MPV 10.2 fL (7.6-11.3); RBC Red Blood Cell Count 2.77 M/uL (4.33-5.43)
[2021-02-01] MEDS: carvediloL 12.5 MG TAB FT SCH ×2 (06:30→18:00)
[2021-02-01 07:36] LABS: Albumin 1.8 g/dL (3.4-5.0); Magnesium 1.7 mg/dL (1.8-2.4)
[2021-02-01] MEDS ORDERED: MAGNESIUM SULFATE 1 gm IVPB 1 GM/100 ML BAG IV ONE (09:00)
[2021-02-01] MEDS: HYDRALAZINE HCL 20 MG/ML VIAL IV PRN (09:19)
[2021-02-01] MEDS: ASPIRIN 81 MG CHEWABLE TABLET FT SCH (09:20)
[2021-02-01 10:24] LABS: Phosphorus 2.9 mg/dL (2.5-4.9)
[2021-02-01] MEDS ORDERED: HOME MED 1 EA UNK (Hydralazine Hcl [Hydralazine Hcl] 100 MG Tablet) PO SCH (10:45)
--- NOTE | 2021-02-01 10:45 | P.PN ---
Subjective Date of Service: 02/01/21 Primary Care Provider: unknown Chief Complaint: Dehydrated/hypernatremia/acute kidney injury Subjective: Other (Patient doing well. Tolerating feeds.) Physical Examination - Vital Signs Temperature: 98.4 F Blood Pressure: 218/100 Pulse: 63 Respirations: 17 Pulse Ox (%): 91 - Studies Medications List Reviewed: Yes Assessment & Plan Discharge Plan: Assisted (For skilled placement) Plan to discharge in: 24 Hours Physician Review Additional Text: Physical exam: Blood pressure remains elevated. Patient alert, cooperative. Patient more alert today. Patient still bed bound. Heart: regular rate rhythm Lungs: Clear to auscultation Abdomen: Peg tube in place. Extremities: No edema noted Impression: Dysphagia with aspiration pneumonia status post recent CVA status post PEG tube placement Hypertension Acute on chronic renal disease stage IV due to poor intake Anemia of chronic disease Plan: Dysphagia with aspiration pneumonia status post recent CVA status post PEG tube placement: Patient tolerating PEG tube feeds. Will continue to monitor cl osely. Will check to see if dietary can transition to bolus feeds. Renal function improving. Continue IV fluids. Patient close to renal baseline. Will discuss further with nephrology. Physical therapy evaluated patient yesterday. Will need to have physical therapy be aggressive on his evaluation so that the patient can potentially qualify for skilled placement. S were family would want him to go. Blood pressure elevated. Restart home medications of hydralazine and Terazosin. Continue on metoprolol. Will initiate heparin for DVT prophylaxis. Continue aspirin, folic acid, and statin medication. Will monitor and adjust appropriately. Continue to update family. Anticipate possible approval back to skilled placement at discharge. Hypertension: Home medication reviewed. Restart hydralazine and Terazosin. Continue metoprolol. Acute on chronic renal disease stage IV due to poor intake: Renal function continues to improve with IV fluids. Continue nutrition. Will discuss with nephrology. Anemia of chronic disease: Will monitor closely. Maintain hemoglobin above 7.0. Recheck hemoglobin today. May require transfusion if hemoglobin less than 7. Time Spent Managing Pts Care (In Minutes): 55
[2021-02-01] MEDS: JEVITY 1.5 CAL LIQUID 1,000 ML BOT FT SCH ×4 (11:00→20:59)
[2021-02-01 11:38] VITALS: BMI 22.3
[2021-02-01] MEDS: HYDRALAZINE HCL 25 MG TABLET FT SCH ×2 (11:43→18:10)
[2021-02-01] MEDS: TERAZOSIN HCL 1 MG CAP PO SCH (20:58)
[2021-02-01] MEDS: ATORVASTATIN 40 MG TAB FT SCH (20:58)
[2021-02-01] MEDS: HEPARIN 5000 UNIT/ML 1 ML VIAL SQ SCH (20:58)
[2021-02-02] MEDS: HYDRALAZINE HCL 25 MG TABLET FT SCH ×3 (00:22→16:32)
--- NOTE | 2021-02-02 02:50 | PN ---
Date of Progress Note: 02/01/2021 Subjective: The patient was admitted with acute kidney injury secondary to ATN and poor intake. The patient was started on IV hydration. Peg tube was placed. Kidney function has been improved significantly. Objective: Vital Signs: When I saw the patient, blood pressure 166/80, pulse of 58, afebrile. The patient had good urine output of 1600, positive balance of 1500. Chest: Faint rales on the left base. Heart: S1, S2, regular. Abdomen: Soft, nontender. PEG tube. Neurologic: No focality. Laboratory Data: WBC 8.8, H and H 7.9/23.5, platelets 262. Sodium 139, potassium 4, bicarb 28, BUN 53, creatinine 1.9, calcium 7.8, phosphorus 2.9,. Current Medications: The patient on include, 1. Tube feed. 2. Heparin. 3. Aspirin. 4. Carvedilol 12.5. 5. Hydralazine 100 t.i.d. 6. Tylenol. 7. Folic acid. 8. IV fluid at 100 per hour. Assessment And Plan: 1. Acute kidney injury secondary to prerenal, on the recovery phase, looked to be on the normal volume. I am going to discontinue IV fluid and we will monitor the patient. 2. Hypertension, not controlled, discontinue IV fluid. Add calcium channel rico for better blood pressure control. 3. Failure to thrive. Continue PEG tube feeding. 4. Hypokalemia, hypomagnesemia. We will supplement. 5. Hypernatremia, resolved, discontinue IV fluid. 6. Dysphagia, status post PEG tube. time spent examined the patient face to face s discussed with the patient placed order discussing the case with other steam conditioner filling including nurses , discussing with other specialist include a hospitalist 45 min SAMANTHA Voice ID: [id number] Report ID: [id number] EVE
[2021-02-02] MEDS: carvediloL 12.5 MG TAB FT SCH ×2 (05:11→17:21)
[2021-02-02 05:37] LABS: Basophils % 0.4 % (0-1.3); Hematocrit 24.2 % (39.6-49.0); Lymphocytes % 11.6 % (15.3-44.8); MPV 10.1 fL (7.6-11.3); RBC Red Blood Cell Count 2.86 M/uL (4.33-5.43)
[2021-02-02 05:45] LABS: Albumin 1.8 g/dL (3.4-5.0); Magnesium 1.9 mg/dL (1.8-2.4); Phosphorus 2.8 mg/dL (2.5-4.9)
[2021-02-02] MEDS: JEVITY 1.5 CAL LIQUID 1,000 ML BOT FT SCH ×5 (08:00→21:00)
[2021-02-02] MEDS: ASPIRIN 81 MG CHEWABLE TABLET FT SCH (08:07)
[2021-02-02] MEDS: AMLODIPINE 10 MG TAB PO SCH (08:08)
[2021-02-02] MEDS: THIAMINE HCL 100 MG TABLET PO SCH (08:08)
[2021-02-02] MEDS: HEPARIN 5000 UNIT/ML 1 ML VIAL SQ SCH ×2 (08:08→22:43)
[2021-02-02] MEDS: SENOSIDES 8.6 MG TAB FT SCH (08:09)
[2021-02-02] MEDS: FOLIC ACID 1 MG TABLET FT SCH (08:10)
[2021-02-02] MEDS: ZINC AMINO ACID CHELATE PO SCH (08:11)
[2021-02-02] MEDS ORDERED: FOLIC ACID 1 MG TABLET PO SCH (09:00)
[2021-02-02] MEDS ORDERED: SENOSIDES 8.6 MG TAB PO SCH (09:00)
[2021-02-02 09:30] LABS: Blood Morphology Comment NOT SEEN (NOT SEEN); Platelet Estimate ADEQ
[2021-02-02] MEDS ORDERED: GLUCAGON 1 MG/VIAL IM PRN (11:45)
[2021-02-02] MEDS ORDERED: D50W 25 GM/50 ML SYRINGE IV PRN (11:45)
[2021-02-02] MEDS: INSULIN -REGULAR HUMAN 50 UNIT/0.5 ML ML SQ SCH ×2 (16:30→21:00)
--- NOTE | 2021-02-02 16:42 | P.PN ---
Subjective Date of Service: 02/02/21 Primary Care Provider: unknown Chief Complaint: Dehydrated/hypernatremia/acute kidney injury Subjective: No new changes Physical Examination - Vital Signs Temperature: 98.8 F Blood Pressure: 150/74 Pulse: 57 Respirations: 16 Pulse Ox (%): 92 - Studies Medications List Reviewed: Yes Assessment & Plan Discharge Plan: Snf Plan to discharge in: 24 Hours Physician Review Additional Text: Physical exam: Blood pressure remains elevated. Patient alert, cooperative. Patient more alert today. Patient still bed bound. Heart: regular rate rhythm Lungs: Clear to auscultation Abdomen: Peg tube in place. Extremities: No edema noted. Contractures to the lower extremity noted. Impression: Dysphagia with aspiration pneumonia status post recent CVA status post PEG tube placement Hypertension Acute on chronic renal disease stage IV due to poor intake Anemia of chronic disease Plan: Dysphagia with aspiration pneumonia status post recent CVA status post PEG tube placement: Patient tolerating PEG tube feeds. Continue to monitor closely. Physical therapy provided recommendations yesterday. Physical therapy noted very minimal change. Some upper extremity partial movement more compared to prior. Physical therapy gave the assisted the discretion to try for skilled therapy. Possibly transitioning to nursing care including PEG tube feeds. Continue to pursue assisted placement. Spoke with family at length. Best case scenario as for the patient to go back to the assisted with skilled therapy. Neck is case scenario would be for the patient to go to long-term care-assisted. Last option would be home with home health and home needs. Hypertension: Continue hydralazine and Terazosin. Along with metoprolol. Acute on chronic renal disease stage IV due to poor intake: Renal function continues to improve with IV fluids. Continue nutrition. Will discuss with nephrology. Anemia of chronic disease: Will monitor closely. Maintain hemoglobin above 7.0. Recheck hemoglobin today. May require transfusion if hemoglobin less than 7. Time Spent Managing Pts Care (In Minutes): 55
[2021-02-02] MEDS: ATORVASTATIN 40 MG TAB FT SCH (22:43)
[2021-02-02] MEDS: TERAZOSIN HCL 1 MG CAP PO SCH (22:43)
--- NOTE | 2021-02-02 23:06 | P.PN ---
Subjective Date of Service: 02/03/21 Primary Care Provider: unknown Chief Complaint: Dehydrated/hypernatremia/acute kidney injury Subjective: No new changes Physical Examination - Vital Signs Temperature: 98.8 F Blood Pressure: 160/80 Pulse: 96 Respirations: 16 Pulse Ox (%): 92 - Physical Exam General: In no apparent distress HEENT: Atraumatic, Normocephalic Neck: Supple, Without JVD or thyroid abnormality Respiratory: Clear to auscultation bilaterally Cardiovascular: No murmurs Gastrointestinal: Soft and benign Neurological: Other (Non-focal) - Studies Medications List Reviewed: Yes Assessment And Plan - Plan # ERASMO on CKD 2/2 prerenal state / dec po intake Improving Encouraged liberal po fluid intake Monitor renal panel # Dysphagia/aspiration pna/recent cva s/p PEG Mngt per other services # Htn BP ok Monitor # Anemia Monitor H/H Physician Review Additional Text: Physical exam: Blood pressure remains elevated. Patient alert, cooperative. Patient more alert today. Patient still bed bound. Heart: regular rate rhythm Lungs: Clear to auscultation Abdomen: Peg tube in place. Extremities: No edema noted. Contractures to the lower extremity noted. Impression: Dysphagia with aspiration pneumonia status post recent CVA status post PEG tube placement Hypertension Acute on chronic renal disease stage IV due to poor intake Anemia of chronic disease Plan: Dysphagia with aspiration pneumonia status post recent CVA status post PEG tube placement: Patient tolerating PEG tube feeds. Continue to monitor closely. Physical therapy provided recommendations yesterday. Physical therapy noted very minimal change. Some upper extremity partial movement more compared to prior. Physical therapy gave the detention the discretion to try for skilled therapy. Possibly transitioning to nursing care including PEG tube feeds. Continue to pursue detention placement. Spoke with family at length. Best case scenario as for the patient to go back to the detention with skilled therapy. Neck is case scenario would be for the patient to go to long-term care-detention. Last option would be home with home health and home needs. Hypertension: Continue hydralazine and Terazosin. Along with metoprolol. Acute on chronic renal disease stage IV due to poor intake: Renal function continues to improve with IV fluids. Continue nutrition. Will discuss with nephrology. Anemia of chronic disease: Will monitor closely. Maintain hemoglobin above 7.0. Recheck hemoglobin today. May require transfusion if hemoglobin less than 7.
--- NOTE | 2021-02-02 23:12 | P.PN ---
Subjective Date of Service: 02/02/21 Primary Care Provider: unknown Chief Complaint: Dehydrated/hypernatremia/acute kidney injury Subjective: Improving (Tolerating TFs and PEG use.) Review of Systems 10-point ROS is otherwise unremarkable (Improving. More alert / energetic) General: Weakness Physical Examination - Vital Signs Temperature: 98.8 F Blood Pressure: 158/80 Pulse: 68 Respirations: 20 Pulse Ox (%): 98 - Physical Exam General: Alert, In no apparent distress, Cooperative HEENT: Atraumatic, Normocephalic, PERRLA, EOMI Neck: Supple Respiratory: Normal air movement Cardiovascular: Normal pulses Gastrointestinal: Soft and benign, No tenderness, No rebound, No guarding - Studies Medications List Reviewed: Yes Assessment And Plan - Current Problems (Diagnosis) (1) Protein calorie malnutrition Current Visit: Yes Status: Acute (2) Aspiration pneumonia Current Visit: No Status: Acute (3) CVA (cerebral vascular accident) Current Visit: No Status: Acute (4) Oropharyngeal dysphagia Current Visit: No Status: Acute - Plan REC: 1) continue TFs 2) await EGD pathology Physician Review Additional Text: Physical exam: Heart: regular rate rhythm Lungs: Clear to auscultation Abdomen: Peg tube in place. Extremities: No edema noted Impression: Dysphagia with aspiration pneumonia status post recent CVA status post PEG tube placement Hypertension Acute on chronic renal disease stage IV due to poor intake Anemia of chronic disease Plan: Dysphagia with aspiration pneumonia status post recent CVA status post PEG tube placement: Patient tolerating PEG tube feeds. Will have dietary monitor and address. Will see if they can transition to bolus feeds. Will adjust IV fluids. Will discuss with nephrology. Renal function improving back to baseline. Will monitor hemoglobin closely. Physical therapy and occupational therapy ordered. Case discussed with family. Family desires patient to go back to longterm for skilled placement. Will address with social work manager. No longer on antibiotic therapy as recommended by pulmonology. Anticipate improvement over the next 2-3 days. Hypertension: Continue medication. Acute on chronic renal disease stage IV due to poor intake: Will change IV fluids to half-normal saline. Will discuss with nephrology. Continue nutrition. Continue monitor renal function. Anemia of chronic disease: Will monitor closely. Maintain hemoglobin above 7.0. Recheck hemoglobin today. May require transfusion if hemoglobin less than 7.
[2021-02-03] MEDS: HYDRALAZINE HCL 25 MG TABLET FT SCH ×4 (02:39→17:46)
[2021-02-03] MEDS: carvediloL 12.5 MG TAB FT SCH ×3 (06:01→17:46)
[2021-02-03 07:08] LABS: Albumin 1.8 g/dL (3.4-5.0); Potassium 4.2 mmol/L (3.5-5.1)
[2021-02-03] MEDS: INSULIN -REGULAR HUMAN 50 UNIT/0.5 ML ML SQ SCH ×4 (07:30→21:00)
[2021-02-03] MEDS: FOLIC ACID 1 MG TABLET FT SCH (08:43)
[2021-02-03] MEDS: SENOSIDES 8.6 MG TAB FT SCH (08:43)
[2021-02-03] MEDS: AMLODIPINE 10 MG TAB PO SCH (08:44)
[2021-02-03] MEDS: THIAMINE HCL 100 MG TABLET PO SCH (08:44)
[2021-02-03] MEDS: HEPARIN 5000 UNIT/ML 1 ML VIAL SQ SCH ×2 (08:44→21:57)
[2021-02-03] MEDS: ASPIRIN 81 MG CHEWABLE TABLET FT SCH (08:44)
[2021-02-03] MEDS: JEVITY 1.5 CAL LIQUID 1,000 ML BOT FT SCH ×5 (08:45→21:56)
[2021-02-03] MEDS: ZINC AMINO ACID CHELATE PO SCH (08:46)
[2021-02-03] MEDS: SCOPOLAMINE HYDROBROMIDE PATCH TD SCH (09:05)
[2021-02-03] MEDS: ACETAMINOPHEN 160 MG/5 ML UCUP FT PRN (11:27)
--- NOTE | 2021-02-03 13:01 | P.PN ---
Subjective Date of Service: 02/04/21 Primary Care Provider: unknown Chief Complaint: Dehydrated/hypernatremia/acute kidney injury Subjective: No new changes Physical Examination - Vital Signs Temperature: 102.9 F Blood Pressure: 140/62 Pulse: 72 Respirations: 20 Pulse Ox (%): 92 - Physical Exam General: In no apparent distress HEENT: Atraumatic, Normocephalic Neck: Supple, Without JVD or thyroid abnormality Respiratory: Clear to auscultation bilaterally Cardiovascular: No murmurs Gastrointestinal: Soft and benign, Non-distended - Studies Medications List Reviewed: Yes Assessment And Plan - Plan # ERASMO on CKD 2/2 prerenal state / dec po intake Improved Cont hydration via PEG On tube feed via Jevity via PEG Monitor renal panel # Dysphagia/aspiration pna/recent cva s/p PEG Mngt per other services # Htn BP ok Monitor # Anemia Monitor H/H # Dispo DC planning to LTAC ongoing Physician Review Additional Text: Physical exam: Blood pressure remains elevated. Patient alert, cooperative. Patient more alert today. Patient still bed bound. Heart: regular rate rhythm Lungs: Clear to auscultation Abdomen: Peg tube in place. Extremities: No edema noted. Contractures to the lower extremity noted. Impression: Dysphagia with aspiration pneumonia status post recent CVA status post PEG tube placement Hypertension Acute on chronic renal disease stage IV due to poor intake Anemia of chronic disease Plan: Dysphagia with aspiration pneumonia status post recent CVA status post PEG tube placement: Patient tolerating PEG tube feeds. Continue to monitor closely. Physical therapy provided recommendations yesterday. Physical therapy noted very minimal change. Some upper extremity partial movement more compared to prior. Physical therapy gave the jail the discretion to try for skilled therapy. Possibly transitioning to nursing care including PEG tube feeds. Continue to pursue jail placement. Spoke with family at length. Best case scenario as for the patient to go [facility] to the jail with skilled therapy. Neck is case scenario would be for the patient to go to long-term care-jail. Last option would be home with home health and home needs. Hypertension: Continue hydralazine and Terazosin. Along with metoprolol. Acute on chronic renal disease stage IV due to poor intake: Renal function continues to improve with IV fluids. Continue nutrition. Will discuss with nephrology. Anemia of chronic disease: Will monitor closely. Maintain hemoglobin above 7.0. Recheck hemoglobin today. May require transfusion if hemoglobin less than 7.
--- NOTE | 2021-02-03 13:31 | P.PN ---
Subjective Date of Service: 02/03/21 Primary Care Provider: unknown Chief Complaint: Dehydrated/hypernatremia/acute kidney injury Subjective: Doing well Physical Examination - Vital Signs Temperature: 102.9 F Blood Pressure: 140/62 Pulse: 72 Respirations: 20 Pulse Ox (%): 92 - Studies Medications List Reviewed: Yes Assessment & Plan Discharge Plan: Detention (Skilled facility) Plan to discharge in: 24 Hours Physician Review Additional Text: Physical exam: Blood pressure remains elevated. Patient alert, cooperative. Patient more alert today. Patient still bed bound. Heart: regular rate rhythm Lungs: Clear to auscultation Abdomen: Peg tube in place. Extremities: No edema noted. Contractures to the lower extremity noted. Impression: Dysphagia with aspiration pneumonia status post recent CVA status post PEG tube placement Hypertension Acute on chronic renal disease stage IV due to poor intake Anemia of chronic disease Plan: Dysphagia with aspiration pneumonia status post recent CVA status post PEG tube placement: Patient doing well this morning. Spoke with social psychologist. [facility] Spoke with family about this. They are encouraged. Prior to sending to skilled facility they will want a COVID test. Will obtain. Patient had elevated temperature just now. Will check CBC and chest x-ray. Patient unchanged. Continue with plan to discharge to skilled facility if approved. Family would consider hospice if his condition does not improve with skilled placement at the facility. Hypertension: Continue hydralazine and Terazosin. Along with metoprolol. Acute on chronic renal disease stage IV due to poor intake: Renal function continues to improve with IV fluids. Continue nutrition. Will discuss with nephrology. Anemia of chronic disease: Will monitor closely. Maintain hemoglobin above 7.0. Recheck hemoglobin today. May require transfusion if hemoglobin less than 7. Time Spent Managing Pts Care (In Minutes): 55
[2021-02-03 14:26] LABS: Absolute Lymphocytes (CBC) 0.5 K/uL (0.7-4.9); Basophils % 0.2 % (0-1.3); Hematocrit 21.6 % (39.6-49.0); Lymphocytes % 1.7 % (15.3-44.8); MPV 9.6 fL (7.6-11.3); RBC Red Blood Cell Count 2.56 M/uL (4.33-5.43)
--- NOTE | 2021-02-03 14:48 | RAD REPORT ---
EXAM DESCRIPTION: RAD - Chest Single View - 02/03/2021 2:41 pm CLINICAL HISTORY: fever. evaluate for pneumonia Chest pain. COMPARISON: Chest Single View dated 01/28/2021; Abdomen 1 View (KUB) dated 01/27/2021; Chest Single Vi ew dated 01/25/2021; Chest Single View dated 01/24/2021 FINDINGS: Portable technique limits examination quality. Mild opacities are present in the left lung base likely representing infiltrate/pneumonia. This appea rs new since the comparative study. The heart is normal in size. Right-sided PICC line has tip in the SVC.
[2021-02-03] MEDS: ACETAMINOPHEN 650MG/RECT SUPP PR PRN (15:05)
[2021-02-03] MEDS ORDERED: NACHLORIDE 0.45% 1,000 ML IV SCH (16:00)
[2021-02-03 16:35] LABS: Blood Morphology Comment NOTED (NOT SEEN); Platelet Estimate ADEQ; Polychromasia SLIGHT
[2021-02-03 16:36] LABS: Anisocytosis SLIGHT
[2021-02-03 16:39] LABS: Teardrop Cell FEW
[2021-02-03 16:41] LABS: Hypochromasia 1+; Poikilocytosis SLIGHT
[2021-02-03] MEDS: PIPER/TAZO/NS 3.375gm 3.375 GM/100 ML BAG IVPB SCH (16:47)
[2021-02-03] MEDS ORDERED: D50W 25 GM/50 ML VIAL IV PRN (18:00)
[2021-02-03] MEDS: TERAZOSIN HCL 1 MG CAP PO SCH (21:56)
[2021-02-03] MEDS: ATORVASTATIN 40 MG TAB FT SCH (21:56)
[2021-02-03] MEDS ORDERED: FUROSEMIDE 20 MG/ 2ML VIAL IV PRN (22:18)
[2021-02-03] MEDS ORDERED: NA CHLORIDE 0.9% 250 ML ONE (22:55)
[2021-02-04] MEDS: HYDRALAZINE HCL 25 MG TABLET FT SCH ×3 (00:34→16:58)
[2021-02-04] MEDS: PIPER/TAZO/NS 3.375gm 3.375 GM/100 ML BAG IVPB SCH ×3 (01:28→16:58)
[2021-02-04 04:05] LABS: Absolute Lymphocytes (CBC) 1.1 K/uL (0.7-4.9); Basophils % 0.2 % (0-1.3); Hematocrit 26.2 % (39.6-49.0); Lymphocytes % 5.1 % (15.3-44.8); MPV 9.9 fL (7.6-11.3); RBC Red Blood Cell Count 3.06 M/uL (4.33-5.43)
[2021-02-04 04:19] LABS: Albumin 1.8 g/dL (3.4-5.0); Magnesium 1.8 mg/dL (1.8-2.4); Phosphorus 2.7 mg/dL (2.5-4.9); Potassium 4.1 mmol/L (3.5-5.1)
[2021-02-04] MEDS: carvediloL 12.5 MG TAB FT SCH ×2 (05:05→16:58)
[2021-02-04] MEDS ORDERED: MAGNESIUM SULFATE 1 gm IVPB 1 GM/100 ML BAG IV ONE (07:00)
[2021-02-04] MEDS: INSULIN -REGULAR HUMAN 50 UNIT/0.5 ML ML SQ SCH ×4 (07:30→21:00)
[2021-02-04] MEDS: JEVITY 1.5 CAL LIQUID 1,000 ML BOT FT SCH ×5 (08:00→22:23)
[2021-02-04] MEDS: AMLODIPINE 10 MG TAB PO SCH (08:24)
[2021-02-04] MEDS: ZINC AMINO ACID CHELATE PO SCH (09:00)
[2021-02-04] MEDS: HEPARIN 5000 UNIT/ML 1 ML VIAL SQ SCH ×2 (09:00→22:23)
--- NOTE | 2021-02-04 09:39 | P.PN ---
Subjective Date of Service: 02/04/21 Primary Care Provider: unknown Chief Complaint: Dehydrated/hypernatremia/acute kidney injury Subjective: Improving, Doing well Physical Examination - Vital Signs Temperature: 99.5 F Blood Pressure: 114/56 Pulse: 61 Respirations: 18 Pulse Ox (%): 94 - Studies Medications List Reviewed: Yes Assessment & Plan Discharge Plan: Other (intermediate facility) Plan to discharge in: 24 Hours Physician Review Additional Text: Physical exam: Blood pressure remains elevated. Patient alert, cooperative. Patient more aler t today. Patient still bed bound. Heart: regular rate rhythm Lungs: Clear to auscultation Abdomen: Peg tube in place. Extremities: No edema noted. Contractures to the lower extremity noted. Impression: Dysphagia with recurrent aspiration pneumonia status post recent CVA status post PEG tube placement Hypertension Acute on chronic renal disease stage IV due to poor intake Anemia of chronic disease Plan: Dysphagia with recurrent aspiration pneumonia status post recent CVA status post PEG tube placement: Patient had elevated white count with pro calcitonin. Chest x-ray revealed pneumonia. This is likely recurrent aspiration. Patient now on on IV Zosyn. Continue IV fluids. Patient has improved. Currently on a room-air. Continue to monitor CBC and status. Continue PEG tube feeds. Patient has been approved to go back to skilled facility-half-way. Anticipate improvement over the next 24-48 hr. Possible discharge back to the half-way as early as tomorrow. Spoke with family at length yesterday. Family understands plan of care. In the future if his condition worsens at the skilled facility they will consider possible hospice. No need for this at this time. Hypertension: Continue hydralazine, metoprolol and Terazosin. Parameters in place Acute on chronic renal disease stage IV due to poor intake: Renal function continues to improve with IV fluids. Continue nutrition. Will discuss with nephrology. Anemia of chronic disease: Patient was transfused yesterday. Hemoglobin improved. Maintain hemoglobin above 7.0. Will monitor this closely. Time Spent Managing Pts Care (In Minutes): 55
--- NOTE | 2021-02-04 09:43 | P.PN ---
Subjective Date of Service: 02/05/21 Primary Care Provider: unknown Chief Complaint: Dehydrated/hypernatremia/acute kidney injury Subjective: No new changes Physical Examination - Vital Signs Temperature: 99.5 F Blood Pressure: 114/56 Pulse: 61 Respirations: 18 Pulse Ox (%): 94 - Physical Exam General: In no apparent distress HEENT: Atraumatic, Normocephalic Neck: Without JVD or thyroid abnormality Respiratory: Clear to auscultation bilaterally Cardiovascular: No murmurs Capillary refill: <2 Seconds Gastrointestinal: Soft and benign, Non-distended Musculoskeletal: No clubbing Integumentary: Other (Normal temp) Urinary: Other (No bladder distention) Rectal: Deferred - Studies Medications List Reviewed: Yes Assessment And Plan - Plan # ERASMO on CKD 2/2 prerenal state / dec po intake Improved Baseline SCr 1.5 Cont hydration via PEG D/c 1/2NS IV gtt Inc free H20 flushes via PEG to 200 cc QID On tube feed via Jevity via PEG Monitor renal panel # Dysphagia/aspiration pna/recent cva s/p PEG Mngt per other services # Htn BP ok Monitor # Anemia Received pRBC transf on 02/03 Hgb improved Monitor H/H # Dispo DC planning to LTAC ongoing Physician Review Additional Text: Physical exam: Blood pressure remains elevated. Patient alert, cooperative. Patient more alert today. Patient still bed bound. Heart: regular rate rhythm Lungs: Clear to auscultation Abdomen: Peg tube in place. Extremities: No edema noted. Contractures to the lower extremity noted. Impression: Dysphagia with recurrent aspiration pneumonia status post recent CVA status post PEG tube placement Hypertension Acute on chronic renal disease stage IV due to poor intake Anemia of chronic disease Plan: Dysphagia with recurrent aspiration pneumonia status post recent CVA status post PEG tube placement: Patient had elevated white count with pro calcitonin. Chest x-ray revealed pneumonia. This is likely recurrent aspiration. Patient now on on IV Zosyn. Continue IV fluids. Patient has improved. Currently on a room-air. Continue to monitor CBC and status. Continue PEG tube feeds. Patient has been approved to go back to skilled facility-group home. Anticipate improvement over the next 24-48 hr. Possible discharge back to the group home as early as tomorrow. Spoke with family at length yesterday. Family understands plan of care. In the future if his condition worsens at the skilled facility they will consider possible hospice. No need for this at this time. Hypertension: Continue hydralazine, metoprolol and Terazosin. Parameters in place Acute on chronic renal disease stage IV due to poor intake: Renal function continues to improve with IV fluids. Continue nutrition. Will discuss with nephrology. Anemia of chronic disease: Patient was transfused yesterday. Hemoglobin improved. Maintain hemoglobin above 7.0. Will monitor this closely.
[2021-02-04] MEDS: ASPIRIN 81 MG CHEWABLE TABLET FT SCH (09:56)
[2021-02-04] MEDS: SENOSIDES 8.6 MG TAB FT SCH (09:56)
[2021-02-04] MEDS: THIAMINE HCL 100 MG TABLET PO SCH (09:56)
[2021-02-04] MEDS: FOLIC ACID 1 MG TABLET FT SCH (09:56)
[2021-02-04] MEDS: TERAZOSIN HCL 1 MG CAP PO SCH (22:23)
[2021-02-04] MEDS: ATORVASTATIN 40 MG TAB FT SCH (22:27)
[2021-02-05] MEDS: PIPER/TAZO/NS 3.375gm 3.375 GM/100 ML BAG IVPB SCH ×3 (01:07→17:59)
[2021-02-05] MEDS: HYDRALAZINE HCL 25 MG TABLET FT SCH ×3 (01:07→17:59)
[2021-02-05] MEDS: carvediloL 12.5 MG TAB FT SCH ×2 (06:43→17:59)
[2021-02-05 06:53] LABS: Absolute Lymphocytes (CBC) 1.5 K/uL (0.7-4.9); Basophils % 0.4 % (0-1.3); Hematocrit 24.4 % (39.6-49.0); Lymphocytes % 12.3 % (15.3-44.8); MPV 9.3 fL (7.6-11.3); RBC Red Blood Cell Count 2.88 M/uL (4.33-5.43)
[2021-02-05] MEDS: INSULIN -REGULAR HUMAN 50 UNIT/0.5 ML ML SQ SCH ×4 (07:30→21:00)
[2021-02-05 07:56] LABS: Albumin 1.7 g/dL (3.4-5.0); Phosphorus 2.8 mg/dL (2.5-4.9); Potassium 4.3 mmol/L (3.5-5.1)
[2021-02-05] MEDS: JEVITY 1.5 CAL LIQUID 1,000 ML BOT FT SCH ×5 (08:00→22:31)
[2021-02-05] MEDS: ZINC AMINO ACID CHELATE PO SCH (09:00)
--- NOTE | 2021-02-05 09:04 | P.PN ---
Subjective Date of Service: 02/06/21 Primary Care Provider: unknown Chief Complaint: Dehydrated/hypernatremia/acute kidney injury Subjective: No new changes Physical Examination - Vital Signs Temperature: 99.6 F Blood Pressure: 140/69 Pulse: 63 Respirations: 16 Pulse Ox (%): 95 - Physical Exam General: In no apparent distress HEENT: Atraumatic, Normocephalic Neck: Supple, Without JVD or thyroid abnormality Respiratory: Clear to auscultation bilaterally Cardiovascular: No murmurs Gastrointestinal: Soft and benign, Non-distended - Studies Medications List Reviewed: Yes Assessment And Plan - Plan # ERASMO on CKD 2/2 prerenal state / dec po intake Improved Baseline SCr 1.5 Cont hydration via PEG Cont free H20 flushes via PEG at 200 cc QID On tube feed via Jevity via PEG Monitor renal panel # Dysphagia/aspiration pna/recent cva s/p PEG Mngt per other services # Htn BP ok Monitor # Anemia Received pRBC transf on 02/03 Hgb improved Monitor H/H # Dispo DC planning to LTAC ongoing Physician Review Additional Text: Physical exam: Blood pressure remains elevated. Patient alert, cooperative. Patient more alert today. Patient still bed bound. Heart: regular rate rhythm Lungs: Clear to auscultation Abdomen: Peg tube in place. Extremities: No edema noted. Contractures to the lower extremity noted. Impression: Dysphagia with recurrent aspiration pneumonia status post recent CVA status post PEG tube placement Hypertension Acute on chronic renal disease stage IV due to poor intake Anemia of chronic disease Plan: Dysphagia with recurrent aspiration pneumonia status post recent CVA status post PEG tube placement: Patient had elevated white count with pro calcitonin. Chest x-ray revealed pneumonia. This is likely recurrent aspiration. Patient now on on IV Zosyn. Continue IV fluids. Patient has improved. Currently on a room-air. Continue to monitor CBC and status. Continue PEG tube feeds. Patient has been approved to go back to skilled facility-intermediate. Anticipate improvement over the next 24-48 hr. Possible discharge back to the intermediate as early as tomorrow. Spoke with family at length yesterday. Family understands plan of care. In the future if his condition worsens at the skilled facility they will consider possible hospice. No need for this at this time. Hypertension: Continue hydralazine, metoprolol and Terazosin. Parameters in place Acute on chronic renal disease stage IV due to poor intake: Renal function continues to improve with IV fluids. Continue nutrition. Will discuss with nephrology. Anemia of chronic disease: Patient was transfused yesterday. Hemoglobin improved. Maintain hemoglobin above 7.0. Will monitor this closely.
[2021-02-05] MEDS: ASPIRIN 81 MG CHEWABLE TABLET FT SCH (09:31)
[2021-02-05] MEDS: FOLIC ACID 1 MG TABLET FT SCH (09:31)
[2021-02-05] MEDS: AMLODIPINE 10 MG TAB PO SCH (09:31)
[2021-02-05] MEDS: THIAMINE HCL 100 MG TABLET PO SCH (09:31)
[2021-02-05] MEDS: SENOSIDES 8.6 MG TAB FT SCH (09:31)
--- NOTE | 2021-02-05 09:38 | P.PN ---
Subjective Date of Service: 02/05/21 Primary Care Provider: unknown Chief Complaint: Dehydrated/hypernatremia/acute kidney injury Subjective: Improving, Doing well Physical Examination - Vital Signs Temperature: 99.6 F Blood Pressure: 140/69 Pulse: 63 Respirations: 16 Pulse Ox (%): 95 - Studies Medications List Reviewed: Yes Assessment & Plan Discharge Plan: [facility] Plan to discharge in: 24 Hours Physician Review Additional Text: Physical exam: Blood pressure improved. Patient alert today. No significant distress noted. Heart: regular rate rhythm Lungs: Clear to auscultation anteriorly Abdomen: Peg tube in place. Extremities: No edema noted. Contractures to the lower extremity noted. Impression: Dysphagia with recurrent aspiration pneumonia status post recent CVA status post PEG tube placement Hypertension Acute on chronic renal disease stage IV due to poor intake Anemia of chronic disease Plan: Dysphagia with recurrent aspiration pneumonia status post recent CVA status post PEG tube placement: White count improved. Will repeat chest x-ray today. Patient now on room air. Continue with IV Zosyn for at least 1 more day. Can transition to oral medication-antibiotic tomorrow. Continue with physical therapy. Patient has been approved to go back to the care home-skilled placement facility. Nephrology has discontinued IV fluids. Water flushes place. Continue with PEG tube feeds. Anticipate back to the skilled facility tomorrow. I will turn the service over to the hospitalist team tomorrow. I will go plan of care with him. Will discuss with family. Family understands patient's current status. Once back to the care home if his condition deteri orates then family can discuss the possibility of hospice in the future. This was addressed in detail with family who agreed. Hypertension: Continue hydralazine, metoprolol and Terazosin. Parameters in place Acute on chronic renal disease stage IV due to poor intake: Nephrology discontinued IV fluids. Water flushes in place. Continue nutrition. Will discuss with nephrology. Anemia of chronic disease: Patient had been transfused. Hemoglobin improved. Maintain hemoglobin above 7.0. Will monitor this closely. Time Spent Managing Pts Care (In Minutes): 55
[2021-02-05] MEDS: HEPARIN 5000 UNIT/ML 1 ML VIAL SQ SCH ×2 (09:49→22:31)
--- NOTE | 2021-02-05 10:08 | RAD REPORT ---
EXAM DESCRIPTION: [facility] Single View3 10:02 am CLINICAL HISTORY: Chest pain COMPARISON: February 03, 2021 FINDINGS: Left basilar pulmonary opacities appear resolved. Right lung appears clear of acute infiltrate. Heart is normal size. PICC line with its tip in the sup erior vena cava IMPRESSION: Resolution of the mild left basilar pneumonia
[2021-02-05] MEDS: ATORVASTATIN 40 MG TAB FT SCH (22:30)
[2021-02-05] MEDS: TERAZOSIN HCL 1 MG CAP PO SCH (22:30)
[2021-02-06] MEDS: PIPER/TAZO/NS 3.375gm 3.375 GM/100 ML BAG IVPB SCH ×3 (00:43→16:26)
[2021-02-06] MEDS: HYDRALAZINE HCL 25 MG TABLET FT SCH ×3 (00:44→17:06)
[2021-02-06] MEDS: carvediloL 12.5 MG TAB FT SCH ×2 (06:49→17:07)
[2021-02-06] MEDS: INSULIN -REGULAR HUMAN 50 UNIT/0.5 ML ML SQ SCH ×3 (07:30→16:22)
[2021-02-06] MEDS: JEVITY 1.5 CAL LIQUID 1,000 ML BOT FT SCH ×4 (08:00→17:54)
[2021-02-06] MEDS: FOLIC ACID 1 MG TABLET FT SCH (08:40)
[2021-02-06] MEDS: THIAMINE HCL 100 MG TABLET PO SCH (08:40)
[2021-02-06] MEDS: AMLODIPINE 10 MG TAB PO SCH (08:40)
[2021-02-06] MEDS: SENOSIDES 8.6 MG TAB FT SCH (08:41)
[2021-02-06] MEDS: HEPARIN 5000 UNIT/ML 1 ML VIAL SQ SCH (08:41)
[2021-02-06] MEDS: ASPIRIN 81 MG CHEWABLE TABLET FT SCH (08:41)
[2021-02-06] MEDS: SCOPOLAMINE HYDROBROMIDE PATCH TD SCH (08:43)
[2021-02-06] MEDS: ZINC AMINO ACID CHELATE PO SCH (08:43)
[2021-02-06 12:52] VITALS: O2SAT 94
[2021-02-06 16:52] VITALS: BP 138/66
[2021-02-06] MEDS: ACETAMINOPHEN 160 MG/5 ML UCUP FT PRN (17:07)
[2021-02-06 19:08] VITALS: TEMP 98.7
--- NOTE | 2021-02-06 20:55 | PN ---
Date of Progress Note: 02/06/2021 Chief Complaint: Acute kidney injury, dehydration, hypernatremia, hyperosmolar. Subjective: The patient was found to have acute kidney injury. The patient has chronic kidney disea se stage II, developed prerenal azotemia, renal hypoperfusion. Creatinine level was up to 1.5. The patient was found to have hypernatremia and was started on free water to hydration via PEG tube. The patient is on tube feeding with Jevity. Review of Systems: Unobtainable. Physical Examination: Lungs: Clear to auscultation bilaterally. Heart: S1, S2. Abdomen: Soft, benign. Extremities: Slight edema. Impression And Plan: 1.Acute on chronic kidney injury secondary to severe renal hypoperfusion, complicated by acute tubul ar necrosis. Urine output is improving. Continue hydration with free water to control hypernatremia and continue tube feeding. 2.Dysphagia, aspiration pneumonia, recent history of cerebrovascular accident, which is subsequently followed by PEG placement. 3.Hypertension. Blood pressure controlled. Continue current medication. EB/MODL Voice ID: [id number] Report ID: [id number]
--- NOTE | 2021-02-14 05:29 | P.DS ---
Discharge Date: 02/06/21 Primary Care Provider: unknown Disposition: TRANSFER TO SNF - REHAB Discharge Condition: GOOD Reason for Admission: Dehydrated/hypernatremia/acute kidney injury - Problems (1) ARF (acute renal failure) Status: Acute (2) Aspiration pneumonia Status: Acute (3) CVA (cerebral vascular accident) Status: Acute (4) HTN (hypertension) Status: Acute (5) Oropharyngeal dysphagia Status: Acute (6) Malnourished Status: Acute Brief History of Present Illness: Patient is a 65-year-old gentleman who came to the hospital with acute kidney injury. Patient family has been deciding whether to do a PEG tube for proceed with hospice. Patient is not able to swallow well. He has dysphagia after suffering a stroke. Patient has not recovered. He came into the hospital severely dehydrated. He will be hydrated and will talk with family regarding plan of care. Family has wanted patient be a full code but according to nursing staff patient has declined quite significantly. He may benefit from comfort measures. Would discuss this with family as well as PEG tube option. Hospital Course: Patient was treated with antibiotics and clinically as symptoms improved. PEG tube was replaced. Patient overall is doing much better at this time. Patient will need to follow up as an outpatient with neurology as well as gastroenterolo gy. Patient PCP as well will need to follow closely. At this time, patient is stable for discharge home. Vital Signs/Physical Exam: Temp Pulse Resp BP Pulse Ox 98.7 F 71 17 138/66 95 02/06/21 17:00 02/06/21 17:07 02/06/21 16:00 02/06/21 17:07 02/06/21 16:00 General: Alert, In no apparent distress, Oriented x3 Laboratory Data at Discharge: WBC 12.30 K/uL (4.3-10.9) H D 02/05/21 06:18 Hgb 8.3 g/dL (13.6-17.9) L 02/05/21 06:18 Hct 24.4 % (39.6-49.0) L 02/05/21 06:18 Plt Count 348 K/uL (152-406) 02/05/21 06:18 PT 11.9 SECONDS (9.5-12.5) 01/29/21 07:33 INR 1.03 01/29/21 07:33 APTT 19.4 SECONDS (24.3-36.9) L 01/29/21 07:33 Sodium 139 mmol/L (136-145) 02/05/21 06:18 Potassium 4.3 mmol/L (3.5-5.1) 02/05/21 06:18 BUN 42 mg/dL (7-18) H 02/05/21 06:18 Creatinine 2.05 mg/dL (0.55-1.3) H 02/05/21 06:18 Glucose 89 mg/dL (74-106) 02/05/21 06:18 Uric Acid 12.9 mg/dL (3.5-7.2) H 01/27/21 04:53 Phosphorus 2.8 mg/dL (2.5-4.9) 02/05/21 06:18 Magnesium 2.0 mg/dL (1.8-2.4) 02/05/21 06:18 Total Bilirubin 1.1 mg/dL (0.2-1.0) H 01/25/21 06:11 AST 16 U/L (15-37) 01/25/21 06:11 ALT 13 U/L (12-78) 01/25/21 06:11 Alkaline Phosphatase 77 U/L (45-117) 01/25/21 06:11 Home Medications: Carvedilol [Coreg] 12.5 mg PO BID 01/03/21 Cholecalciferol (Vitamin D3) [Vitamin D3] 1 cap PO Q7D 01/03/21 Folic Acid 1 mg PO DAILY 01/03/21 Hydralazine HCl 100 mg PO Q8H 01/03/21 Mirtazapine [Remeron*] 45 mg PO BEDTIME 01/03/21 Risperidone [Risperdal] 2 mg PO BID 01/03/21 Sennosides [Senna] 1 tab PO DAILY 01/03/21 Terazosin HCl 2 mg PO BEDTIME 01/03/21 Thiamine HCl 100 mg PO DAILY 01/03/21 Zinc Amino Acid Chelate [Zinc] 50 mg PO DAILY 01/03/21 FLUCONAZOLE 200mg IVPB [Diflucan 200 MG IVPB (PREMIX)*] 200 mg IV DAILY #10 bag 01/12/21 Aspirin [Aspirin EC 81 MG] 81 mg PO Q48H 01/24/21 Docusate Sodium 100 mg PO DAILY 01/24/21 Amlodipine [Norvasc*] 10 mg PO DAILY #30 tab 02/06/21 Amox/K Clav [Augmentin 600 MG/5 ML Susp] 5 ml PO BID #100 ml 02/06/21 Atorvastatin Calcium [Lipitor] 40 mg FT BEDTIME #30 tab 02/06/21 Jevity 1.5 Jose Liquid 237 ml FT Q6H #60 bot 02/06/21 David [David*] 1 pkt FT TID #90 powd.pack 02/06/21 Scopolamine Hydrobromide [Transderm-Scop*] 1 pat TD Q3D@0900 #30 patch 02/06/21 carvediloL [Coreg*] 12.5 mg FT BID 6AM 6PM #60 tab 02/06/21 New Medications: Amox/K Clav [Augmentin 600 MG/5 ML Susp] 5 ml PO BID #100 ml carvediloL [Coreg*] 12.5 mg FT BID 6AM 6PM #60 tab Jevity 1.5 Jose Liquid 237 ml FT Q6H #60 bot David [David*] 1 pkt FT TID #90 powd.pack Atorvastatin Calcium [Lipitor] 40 mg FT BEDTIME #30 tab Amlodipine [Norvasc*] 10 mg PO DAILY #30 tab Scopolamine Hydrobromide [Transderm-Scop*] 1 pat TD Q3D@0900 #30 patch Physician Discharge Instructions: Diet: Regular Activity: Fall precautions Followup: [facility] [Primary Care Provider] - Time spent managing pt's care (in minutes): 35
== END 2021-02-06 18:31 | DRG 177 ==
LOC: ER 15:09 → ERHOLD 16:46 → 2ND 21:34 → ERHOLD 01-25 14:00 → 4TH 01-27 15:44 → 2ND 02-04 18:44
PROVIDERS: ADMIT Hospitalist; ATTEND Hospitalist
PROC: 0DH63UZ Insertion of Feeding Device into Stomach, Percutaneous Approach (ICD-10-PCS; 2021-01-29)
PROC: 0DB78ZX Excision of Stomach, Pylorus, Via Natural or Artificial Opening Endoscopic, Diagnostic (ICD-10-PCS; principal; 2021-01-29 09:30)
PROC: 30233N1 Transfusion of Nonautologous Red Blood Cells into Peripheral Vein, Percutaneous Approach (ICD-10-PCS; 2021-02-03)
DX: J69.0 Pneumonitis due to inhalation of food and vomit (principal); N17.0 Acute kidney failure with tubular necrosis; E46 Unspecified protein-calorie malnutrition; E87.0 Hyperosmolality and hypernatremia; N18.4 Chronic kidney disease, stage 4 (severe); I12.9 Hypertensive chronic kidney disease with stage 1 through stage 4 chronic kidney disease, or unspecified chronic kidney disease; K29.40 Chronic atrophic gastritis without bleeding; K29.80 Duodenitis without bleeding; E83.42 Hypomagnesemia; E87.6 Hypokalemia; L89.152 Pressure ulcer of sacral region, stage 2; K44.9 Diaphragmatic hernia without obstruction or gangrene; E86.0 Dehydration; E78.5 Hyperlipidemia, unspecified; D63.1 Anemia in chronic kidney disease; I69.391 Dysphagia following cerebral infarction; R13.12 Dysphagia, oropharyngeal phase; R62.7 Adult failure to thrive; Z74.01 Bed confinement status; Z68.21 Body mass index [BMI] 21.0-21.9, adult; Z79.82 Long term (current) use of aspirin; Z79.899 Other long term (current) drug therapy; Z79.02 Long term (current) use of antithrombotics/antiplatelets; Z20.822 Contact with and (suspected) exposure to COVID-19
CPT/HCPCS: 36415; 36430; 70450; 71045; 74018; 76770; 80048; 80053; 80069; 81003; 81015; 82570; 82652; 82728; 82746; 82947; 83540; 83605; 83735; 83970; 84132; 84134; 84145; 84156; 84300; 84443; 84466; 84550; 85014; 85018; 85025; 85610; 85730; 86850; 86900; 86901; 87040; 87086; 87088; 88305; 88312; 96360; 96361; 97161; 97164; 99285; J0360; J0690; J1450; J1644; J1650; J1940; J2270; J2543; J2704; J2920; J2930; J3475; J7030; J7040; J7050; J7120; J7799; P9016; P9047; U0003